=== PATIENT | male | born 1990 | race Caucasian/White ===

== ENCOUNTER 2018-04-25 20:41 | Inpatient (IN) | payer OTHER ==
[~2018-04-25] VITALS: Ht 188 cm; Wt 86.2 kg
[~2018-04-25 20:41] MED LIST: MEDROL DOSEPAK1 PAC PO; NAPROXEN500 MG PO; PREDNISONE10 M2 PO; REMICADE I100 MG/10; TRAMADOL50 MG PO; [UNRECOGNIZED DRUG - OTHER]
[2018-04-25 22:24] LABS: ABSOLUTE BASOPHIL COUNT 0 /CUMM (0.0-0.2); ABSOLUTE EOSINOPHIL COUNT 0.3 /CUMM (0.0-0.7); ABSOLUTE LYMPH COUNT 1.5 /CUMM (1.2-3.4); BASOPHIL % 0.4 % (0.0-2.0); EOSINOPHIL % 3.3 % (0-5); GRANULOCYTE % 68.1 % (42.2-75.2); HEMATOCRIT 36.6 % (42-52); MEAN CORPUSCULAR HGB 30.2 PG (27.0-31.0); MEAN CORPUSCULAR HGB CONC 33.8 G/DL (33.0-37.0); MEAN CORPUSCULAR VOLUME 89.2 FL (80.0-94.0); MEAN PLATELET VOLUME 8.1 FL (7.4-10.4); PLATELET COUNT 406 /CUMM (130-400); RBC DISTRIBUTION WIDTH 12.7 % (11.5-14.5); RED BLOOD CELL CT 4.11 /CUMM (4.70-6.10); WHITE BLOOD CELL COUNT 8.9 /CUMM (4.8-10.8)
--- NOTE | 2018-04-25 22:36 | ED GI/GU/ABDOMINAL COMPLAINT ---
History of Present Illness General Chief Complaint: Abdominal Pain/Flank Pain Stated Complaint: CHRON'S FLARE UP, UNABLE TO SEE GI Source: patient, old records Exam Limitations: no limitations Vital Signs & Intake/Output Vital Signs & Intake/Output Vital Signs Date Time Temp Pulse Resp B/P B/P Pulse O2 O2 Flow FiO2 Mean Ox Delivery Rate 04/25 2347 98.5 86 18 129/81 98 Room Air 04/25 2303 Room Air 04/25 2121 98.9 100 20 128/89 98 ED Intake and Output 04/26 0000 04/25 1200 Intake Total 1000 Output Total Balance 1000 Intake, IV 1000 Allergies Coded Allergies: No Known Allergies (04/07/18) Reconcile Medications Infliximab (Remicade Injection) (Unknown Strength) VIAL (Unknown Dose) CROHNS (Reported) Methylprednisolone. (Medrol) 4 MG TAB.DS.PK 10 MG PO DAILY INFLAMMATION TAPER DIRECTED Naproxen 500 MG TABLET 1 TAB PO BID PRN PAIN Prednisone 10 MG TABLET 1 TAB PO DAILY CROHN'S TAKE 3 TABS FOR 3 DAYS THEN TAKE 2 TABS FOR 3 DAYS THEN TAKE 1 TAB FOR 3 DAYS Tetanus-Diphtheria Toxoids(Td (Tetanus and Diphtheria Toxoids, Adsorbd Inj) 0.5 ML SYR STEPPED ON NAIL (Reported) TRAMADOL HCL (Tramadol) 50 MG TABLET 1 TAB PO Q6 PRN BREAKTHROUGH PAIN Triage Note: PER PT SEEN 3 WEEKS AGO FOR CHRONS FLARE GIVEN MEDS AND FLUIDS BUT CANT GET STATE INSURANCE NOW PAIN BACK BM Q 4 DAYS AND WEAK Triage Nurses Notes Reviewed? yes HPI: Patient presents with abdominal pain and bloating. Patient has Crohn's disease however has been off Remicade since November secondary to insurance reasons. Patient was seen here in the emergency Department 3 weeks ago and was put on a 10 day course of prednisone. Patient states he was feeling better and then approximately 4 days ago the pain came back. The pain is in the right lower quadrant is sharp and stabbing but also cramping in nature. There are no aggravating or mitigating factors. He states that he feels very bloated and the bloating sensation gets worse when he eats. Patient does have anorexia. He states that he doesn't really feel nauseous he just kind of feels like he is very full and things are back now. The pain at 10 out of 10. There is no radiation of the pain. Past History Travel History Traveled to [place] past 21 day No Medical History Any Pertinent Medical History? see below for history Neurological: NONE EENT: NONE Cardiovascular: NONE Respiratory: NONE Gastrointestinal: Crohn's disease Hepatic: NONE Renal: NONE Musculoskeletal: NONE Psychiatric: NONE Endocrine: NONE Blood Disorders: NONE Cancer(s): NONE Surgical History Surgical History: non-contributory Psychosocial History Who do you live with Family Services at Home None What is your primary language French Tobacco Use: Current Daily Use Daily Tobacco Use Amount/Type: => 5 Cigarettes daily ETOH Use: denies use Illicit Drug Use: denies illicit drug use Family History Hx Contributory? No Review of Systems Review of Systems Constitutional: Reports: no symptoms. EENTM: Reports: no symptoms. Respiratory: Reports: no symptoms. Cardiovascular: Reports: no symptoms. GI: Reports: see HPI, abdominal pain, bloating. Genitourinary: Reports: no symptoms. Musculoskeletal: Reports: no symptoms. Skin: Reports: no symptoms. Neurological/Psychological: Reports: no symptoms. Hematologic/Endocrine: Reports: no symptoms. Immunologic/Allergic: Reports: no symptoms. All Other Systems: Reviewed and Negative Physical Exam Physical Exam General Appearance: well developed/nourished, alert, awake, anxious, moderate distress Head: atraumatic, normal appearance Eyes: Bilateral: PERRL, EOMI. Ears, Nose, Throat, Mouth: hearing grossly normal, moist mucous membrane Neck: normal inspection, supple, full range of motion Respiratory: normal breath sounds, chest non-tender, no respiratory distress, lungs clear Cardiovascular: regular rate/rhythm, normal peripheral pulses Gastrointestinal: normal bowel sounds, soft, guarding, tenderness Back: normal inspection, normal range of motion Extremities: normal range of motion Neurologic/Psych: no motor/sensory deficits, awake, alert, oriented x 3, normal mood/affect Core Measures ACS in differential dx? No Sepsis Present: No Sepsis Focused Exam Completed? No Progress Differential Diagnosis: inflamm bowel dis, SBO Plan of Care: Orders Procedure Date/time Status LIPASE 04/25 2146 Complete LACTIC ACID 04/25 2146 Complete COMPREHENSIVE METABOLIC PANEL 04/25 2146 Complete CBC WITHOUT DIFFERENTIAL 04/25 2146 Complete AMYLASE 04/25 2146 Complete Current Medications Sig/Robert Start time Last Medication Dose Stop Time Status Admin Hydromorphone HCl 2 MG ONCE ONE 04/25 2345 UNVr 04/25 (Dilaudid) 04/25 2346 2348 Hyoscyamine 0.125 MG ONCE ONE 04/25 2345 UNVr 04/25 (Levsin) 04/256 2349 Laboratory Tests 04/25/18 2214: Anion Gap 12, Estimated GFR > 60, BUN/Creatinine Ratio 13.3, Glucose 91, Lactic Acid 0.6 L, Calcium 9.4, Total Bilirubin 0.5, AST 25, ALT 28, Alkaline Phosphatase 61, Total Protein 7.2, Albumin 4.2, Globulin 3.0, Albumin/Globulin Ratio 1.4, Amylase 42, Lipase 56, CBC w Diff NO MAN DIFF REQ, RBC 4.11 L, MCV 89.2, MCH 30.2, MCHC 33.8, RDW 12.7, MPV 8.1, Gran % 68.1, Lymphocytes % 17.0 L , Monocytes % 11.2 H, Eosinophils % 3.3, Basophils % 0.4, Absolute Granulocytes 6.0, Absolute Lymphocytes 1.5, Absolute Monocytes 1.0 H, Absolute Eosinophils 0.3, Absolute Basophils 0 Diagnostic Imaging: Viewed by Me: CT Scan. Discussed w/RAD: CT Scan. Radiology Impression: PATIENT: ROSIE FRANKLIN PRESENT AGE: 28 PATIENT ACCOUNT NO: [id number] : 90 LOCATION: [facility] ORDERING PHYSICIAN: Dominguez Foley MD SERVICE DATE: 04/25/18 EXAM TYPE: CAT - CT ABD & PELVIS W IV CONTRAST EXAMINATION: CT ABDOMEN AND PELVIS WITH CONTRAST CLINICAL INFORMATION: Abdominal pain and bloating COMPARISON: 04/07/2010 TECHNIQUE: Multidetector volumetric imaging was performed of the abdomen and pelvis following IV administration of 95 mL of Optiray 320 intravenous contrast. Sagittal and coronal reformatted images were obtained on the technologist's workstation. DLP: 323 mGy-cm FINDINGS: LUNG BASES: The visualized lung bases are unremarkable. LIVER, GALLBLADDER, AND BILIARY TREE: The liver is normal in size, shape, and attenuation. No focal hepatic lesion or biliary ductal dilatation is present. The gallbladder is unremarkable with no evidence of radiopaque gallstones, gallbladder wall thickening, or obvious pericholecystic inflammatory changes. PANCREAS: Unremarkable. SPLEEN: Unremarkable. ADRENAL GLANDS: Unremarkable. KIDNEYS AND URETERS: The kidneys are normal in size, shape, and attenuation. No hydronephrosis, hydroureter, or calculi seen. No perinephric stranding. BLADDER: Unremarkable. GASTROINTESTINAL TRACT: There is a long segment of circumferential wall thickening of the distal ileum, approximately 25 cm in length, with mild stranding of the adjacent fat and a small amount of free fluid in the pelvis. There is no abscess. No obstruction. No significant change. ABDOMINAL WALL: No significant hernia is appreciated. LYMPH NODES: Normal. VASCULAR: Unremarkable. PELVIC VISCERA: Unremarkable. OSSEOUS STRUCTURES: Unremarkable. IMPRESSION: Circumferential wall thickening of the distal ileum with surrounding inflammatory stranding and a small amount free pelvic fluid. Overall, this does not appear significantly changed since 04/07/2018. No abscess. No definite obstruction. DICTATED BY: Joey Ibarra MD DATE/TIME DICTATED:04/25/182331 CLERICAL CAR CHECKER:SPENSER DATE/TIME TRANSCRIBED:2331 CONFIDENTIAL, DO NOT COPY WITHOUT APPROPRIATE AUTHORIZATION. < Electronically signed in Other Vendor System> SIGNED BY: Joey Ibarra MD 04/25/18 8127 Initial ED EKG: none Comments: Discussed with Dr. Hooper, hold off on IV steroids until he is seen in the morning. Departure Departure Disposition: STILL A PATIENT Condition: Stable Clinical Impression Primary Impression: Exacerbation of Crohn's disease Referrals: Patient Has No Primary Care Dr (PCP/Family) Departure Forms: Customer Survey General Discharge Information Admission Note Spoke With: Kristine Skinner MD Documentation of Exam: Documentation of any treatments & extenuating circumstances including Concerns Regarding Discharge (functional status, medication knowledge or non-compliance, living conditions, etc.) that warrant an admission rather than observation: [IV fluids, pain control, GI consultation, IV steroids or biologic's, social work consultation to try and reinstate his insurance]
--- NOTE | 2018-04-25 23:41 | CT SCAN REPORT ---
EXAMINATION: CT ABDOMEN AND PELVIS WITH CONTRAST CLINICAL INFORMATION: Abdominal pain and bloating COMPARISON: 04/07/2010 TECHNIQUE: Multidetector volumetric imaging was performed of the abdomen and pelvis following IV administration of 95 mL of Optiray 320 intravenous contrast. Sagittal and coronal reformatted images were obtained on the technologist's workstation. DLP: 323 mGy-cm FINDINGS: LUNG BASES: The visualized lung bases are unremarkable. LIVER, GALLBLADDER, AND BILIARY TREE: The liver is normal in size, shape, and attenuation. No focal hepatic lesion or biliary ductal dilatation is present. The gallbladder is unremarkable with no evidence of radiopaque gallstones, gallbladder wall thickening, or obvious pericholecystic inflammatory changes. PANCREAS: Unremarkable. SPLEEN: Unremarkable. ADRENAL GLANDS: Unremarkable. KIDNEYS AND URETERS: The kidneys are normal in size, shape, and attenuation. No hydronephrosis, hydroureter, or calculi seen. No perinephric stranding. BLADDER: Unremarkable. GASTROINTESTINAL TRACT: There is a long segment of circumferential wall thickening of the distal ileum, approximately 25 cm in length, with mild stranding of the adjacent fat and a small amount of free fluid in the pelvis. There is no abscess. No obstruction. No significant change. ABDOMINAL WALL: No significant hernia is appreciated. LYMPH NODES: Normal. VASCULAR: Unremarkable. PELVIC VISCERA: Unremarkable. OSSEOUS STRUCTURES: Unremarkable. IMPRESSION: Circumferential wall thickening of the distal ileum with surrounding inflammatory stranding and a small amount free pelvic fluid. Overall, this does not appear significantly changed since 04/07/2018. No abscess. No definite obstruction.
--- NOTE | 2018-04-26 01:15 | History & Physical ---
Fidel Ramirez 04/26/18 0114: General Information and HPI MD Statement: I have seen and personally examined ROSIE FRANKLIN and documented this H&P. The patient is a 28 year old M who presented with a patient stated chief complaint of []. Source of Information: patient Exam Limitations: no limitations History of Present Illness: Patient is a 28-year-old male past medical history of Crohn's disease diagnosed about 7 years ago. After being unresponsive to Humira self injections patient was started on Remicade monotherapy Q8 weeks, which he claims put him into remission other than the occasional bout of flare like symptoms. His last dose of Remicade was in November 2017, as he could not continue due to insurance reasons. This caused him to miss his January dose. About 4 weeks ago, his Chron's symptoms reappeared with 10/10 pain in start in the lower right quadrant and extending throughout his body abdominal region and groin. At this time he also began experiencing bloody and less formed stools with bowel movements ranging from once in every four to seven days. He came to [place] [facility] 3 weeks ago and was given a 10 day taper of prednisone along with an abdominal CT scan that found some bowel wall thickening in the terminal illeum. The prednisone taper helped for about a week but patient claims his symptoms returned shortly thereafter and this morning (April 25) patient had another bowel movement with bright red blood that filled the entire toilet bowel. Patient also endorses some orthostatic symptoms, such as feeling dizzy and light headed when getting up fast. At times when pain is too much to handle, patient has tried methadone, oxycodon, and marajuana which have all helped. He says that he also uses 2-3 ibuprofen when feeling pain. Patient follows with Dr. Maher at [place] but had to miss his appointment last Wednesday do to insurance reasons. His last colonoscopy was 7 years ago when he was initially diagnosed. He currently denies any fever. He endorses since the start of his most recent flare occasional chills, nausea, vomitting, diaphoersis, "hot flashes", abdminal pain, joint pain , back pain and significant fatigue. Allergies/Medications Allergies: Coded Allergies: No Known Allergies (04/07/18) Compliance With Home Meds: POOR (Missed last dose of Remicade) Past History Travel History Traveled to [place] past 21 day No Medical History Neurological: NONE EENT: NONE Cardiovascular: NONE Respiratory: NONE Gastrointestinal: Crohn's disease Hepatic: NONE Renal: NONE Musculoskeletal: NONE Psychiatric: NONE Endocrine: NONE Blood Disorders: NONE Cancer(s): NONE Surgical History Surgical History: non-contributory Past Family/Social History Psychosocial History Services at Home: None Smoking Status: Current Some Day Smoker (2-3 ciagerettes daily x 10 yrs) ETOH Use: denies use Illicit Drug Use: denies illicit drug use Review of Systems Review of Systems Constitutional: Denies: fever. EENTM: Reports: no symptoms. Cardiovascular: Reports: orthopena, palpitations. Denies: syncope. Respiratory: Reports: no symptoms. GI: Reports: abdominal pain, constipation, melena, nausea, bloody stool. Genitourinary: Reports: no symptoms. Musculoskeletal: Reports: back pain, joint pain. Skin: Reports: no symptoms. Neurological/Psychological: Reports: anxiety. Hematologic/Endocrine: Reports: no symptoms. Immunologic/Allergic: Reports: no symptoms. All Other Systems: Reviewed and Negative Exam & Diagnostic Data Last 24 Hrs of Vital Signs/I&O Vital Signs Date Time Temp Pulse Resp B/P B/P Pulse O2 O2 Flow FiO2 Mean Ox Delivery Rate 04/26 0230 98.3 80 18 110/60 97 Room Air / 0101 98.0 80 18 128/79 98 Room Air 07/ 2347 98.5 86 18 129/81 98 Room Air / 2303 Room Air / 2121 98.9 100 20 128/89 98 Intake & Output 04/26 0800 07/ 0000 04/25 1600 Intake Total 1000 Output Total Balance 1000 Intake, IV 1000 Patient 190 lb Weight Weight Bed scale Measurement Method Physical Exam General Appearance Alert, Oriented X3, Cooperative, No Acute Distress Skin No Rashes HEENT Atraumatic, PERRLA, EOMI Neck Supple Cardiovascular Regular Rate, Normal S1, Normal S2 Lungs Clear to Auscultation, Normal Air Movement Abdomen Normal Bowel Sounds, Soft, No Masses, Tenderness in RLQ Extremities No Clubbing Assessment/Plan Assessment: Patient is a 28-year-old male past medical history of Crohn's disease diagnosed about 7 years ago on remicade Q8 weeks. Recent inability to receive last infusion in November due to social reasons has most likely been the cause of his most recent flare for the last 4 weeks. ER spoke with Dr. Vazquez who recommended not starting antibiotics or steroids until being seen tomorrow. Problem list: Chron's Disease Flare: 1. Admit to general medicine 2. IV fluids 4. Pain pathway 5. GI Consult 6. DVT ppx (ALPS) As Ranked By This Provider Problem List: 1. Crohn's disease 2. Acute low back pain 3. Exacerbation of Crohn's disease Core Measures/Misc (07/11) Acute Coronary Syndrome ACS Diagnosis: No Congestive Heart Failure Congestive Heart Failure Diagnosis No Cerebrovascular Accident CVA/TIA Diagnosis: No VTE (View Protocol) VTE Risk Factors Smoker Sepsis (View protocol) Sepsis Present: No If YES complete Sepsis Event Note If YES complete Sepsis Event Note Kristine Skinner MD 04/26/18 0155: Core Measures/Misc (07/11) Sepsis (View protocol) If YES complete Sepsis Event Note If YES complete Sepsis Event Note Attending MD Review Statement Attending Statement Attending MD Statement: examined this patient, discuss w/resident/PA/CUSTOMER SERVICE CASHIER, agreed w/resident/PA/CUSTOMER SERVICE CASHIER, reviewed EMR data (avail) Attending Assessment/Plan: 28M PMH Crohn's disease presenting with several days of diffuse abdominal pain, R>L, with nausea, decreased appetite. Had been on Remicaide which controlled his symptoms but stopped 3 months ago due to lack of health insurance. Had an exacerbation 3 weeks ago and treated successfully with Prednisone, symptoms restarted since stopping it and have worsened since. Unable to sleep or find a comfortable position due to pain, and noticed bloody stool today. Hemodynamically stable, labs reviewed. ER spoke with Dr. Vazquez who recommended not starting antibiotics or steroids until being seen tomorrow. 1. Crohn's flare Plan - Admit to general medicine - IV hydration - Dilaudid IV PRN for pain - GI consult - ALPS for DVT PPx Yojana Bro MD 04/26/18 0603: General Information and HPI Allergies/Medications Home Med list No Known Home Medications Core Measures/Misc (07/11) VTE (View Protocol) No Mechanical VTE Prophylaxis d/t Medical Contraindication No VTE Pharm Prophylaxis d/t NA PharmProphylax ordered Sepsis (View protocol) If YES complete Sepsis Event Note If YES complete Sepsis Event Note Resident Review Statement Resident Statement: examined this patient, discussed with pharmacy grad intern, agreed with pharmacy grad intern Other Findings: Mr. Franklin is a 28-year-old gentleman with past medical history significant for Crohn's disease(diagnosed 7 years ago) presents with abdominal pain is really going on for 3-4 weeks. Patient was on rituximab for Crohn's disease but has not been able to it because of insurance issues. His last Remicaide infusion was in November. He has been doing good until a month ago when he started having abdominal pain. He was seen in [place] [facility] 3 weeks ago, for abdominal pain and was treated with prednisone for Crohn's flare. The prednisone helped somewhat with the abdominal pain but the pain did not go away completely. He started having severe abdominal pain again 4 days ago. Pain is 10 out of 10, constant, initially was mostly in bilateral lower quadrants but now he can feel it all over the abdomen and even the groins. He has been taking ibuprofen 600 mg at night for the abdominal pain. He was referred to pain management but hasn't been able to follow-up because of insurance issues. Also reports constipation and has approx one bowel movement every week. Also noticed fresh blood in his stools, she was initially minimal but has been aggressively increasing in quantity. Also endorses joint pain/back pain, night sweats and diaphoresis. Denies any nauseous or vomiting but complains of bloating/ feeling of fullness. He is a current smoker and smokes 2 cigarettes per day(was cut down from 1 pack per day), drinks alcohol occasionally and has also smoked marijuana and cocaine in the past. Vitals on admission were temperature of 98.9, heart rate 100, respiratory rate 20, blood pressure 128/59 and O2 sats 98% on room air. He had a white count of 8.9, H&H 12.4/36.6, platelet count 46, BEP unremarkable, lactic acid 0.6 and C-reactive protein of 6.7. CT abdomen and pelvis without contrast showed Circumferential wall thickening of the distal ileum with surrounding inflammatory stranding and a small amount free pelvic fluid, unchanged from previous imaging. Problem list; 1. Crohn's Flare - Admit Patient to Gen Med Floor - Dr. Wallis was called from the ER, who recommending following the patient off steroids or antibiotics and he will see the patient in the morning. - Pain management with IV Dilaudid. - Stool guaiac - Start the patient on clear liquid diet and advance as tolerated. DVT prophylaxis; ALPS Patient is full code
--- NOTE | 2018-04-26 01:59 | Admission Certification ---
Admission Certification Certification Statement - As attending physician, I certify that at the time of - admission, based on clinical presentation, severity of - symptoms, need for further diagnostic testing and - therapeutic interventions, and risk of adverse outcomes - without in-hospital treatment, in my clinical assessment, - this patient requires an acute hospital stay for a minimum - of two nights or longer. I have also considered psychsocial - factors such as support system, advanced age, financial - issues, cognitive issues, and failed out-patient treatments, - past re-admission history, safety of patient, and lack of - compliance as applicable. Specific rationale supporting this admission is: Crohn's flare with bloody stool and intractable pain
[2018-04-26 02:30] VITALS: BP 110/60
[2018-04-26 06:42] VITALS: BP 147/59
[2018-04-26 09:47] LABS: ABSOLUTE BASOPHIL COUNT 0.1 /CUMM (0.0-0.2); ABSOLUTE EOSINOPHIL COUNT 0.3 /CUMM (0.0-0.7); ABSOLUTE LYMPH COUNT 1.5 /CUMM (1.2-3.4); ABSOLUTE MONOCYTE COUNT 1.5 /CUMM (0.10-0.60); BASOPHIL % 0.6 % (0.0-2.0); EOSINOPHIL % 3.1 % (0-5); MEAN CORPUSCULAR HGB 30.7 PG (27.0-31.0); MEAN CORPUSCULAR HGB CONC 34.3 G/DL (33.0-37.0); MEAN CORPUSCULAR VOLUME 89.5 FL (80.0-94.0); MEAN PLATELET VOLUME 8.6 FL (7.4-10.4); PLATELET COUNT 326 /CUMM (130-400); RBC DISTRIBUTION WIDTH 12.4 % (11.5-14.5); RED BLOOD CELL CT 3.46 /CUMM (4.70-6.10); WHITE BLOOD CELL COUNT 9.4 /CUMM (4.8-10.8)
--- NOTE | 2018-04-26 14:26 | PN- Housestaff ---
See Addendum Subjective Follow-up For: Crohns flare up Complaints: pain scale (0-10) (10/10) Subjective: Patient states he continues to experience constant 10/10 abdominal pain and bloody bowel movements. Last BM was yesterday morning. He also reports difficulty initiating his urine stream. Denies dysuria, chest pain, SOB, n/v, fever, chills. Review of Systems Constitutional: Reports: see HPI. Objective Last 24 Hrs of Vital Signs/I&O Vital Signs Date Time Temp Pulse Resp B/P B/P Pulse O2 O2 Flow FiO2 Mean Ox Delivery Rate 04/26 0642 98.3 92 20 147/59 100 Room Air 04/26 0230 98.3 80 18 110/60 97 Room Air / 0101 98.0 80 18 128/79 98 Room Air / 2347 98.5 86 18 129/81 98 Room Air 04/25 2303 Room Air 04/25 2121 98.9 100 20 128/89 98 Intake & Output 04/26 1600 04/26 0800 / 0000 Intake Total 760 1000 Output Total Balance 760 1000 Intake, IV 40 1000 Intake, Oral 720 Number 0 Bowel Movements Patient 190 lb Weight Weight Bed scale Measurement Method Physical Exam General Appearance: Alert, Oriented X3, Cooperative, Mild Distress Skin: No Rashes Skin Temp/Moisture Exam: Warm/Dry HEENT: Atraumatic, PERRLA Neck: Supple Cardiovascular: Regular Rate, Normal S1, Normal S2 Lungs: Clear to Auscultation, Normal Air Movement Abdomen: tender to palpation diffusely; non distended, active bowel sounds Extremities: No Edema, Normal Pulses Assessment/Plan Assessment: 28 year old male with PMH significant for Crohns disease diagnosed at age 21. He reports constant 10/10 abdominal pain associated with bloody bowel movement that are bright red. He was admitted overnight and is currently receiving hydration and pain control while awaiting GI consult. #Crohns -IVF for hydration -pain control -will likely start systemic steroids to decrease inflammation -awaiting GI recs DVT prophylaxis: ALPS, ambulation Problem List: 1. Crohn's disease 2. Exacerbation of Crohn's disease Pain Ratin Pain Location: abdomen Pain Goal: Pain 7 or less Pain Plan: see a/p Tomorrow's Labs & Rationales: cbc, bep
[2018-04-26 14:43] VITALS: BP 118/64
--- NOTE | 2018-04-26 17:28 | Cons- Gastroenterology ---
General Information and HPI Consulting Request Date of Consult: 04/26/18 Requested By: Van Crawford MD Reason for Consult: Crohn's disease History of Present Illness: The patient was diagnosed with Crohn's ileitis approximately 7 years ago. His initial presentation was that of pain and bloody diarrhea. He does remember having on and off abdominal pain/stomach problems throughout his life. He was at first managed with Humira and a thiopurine; this was changed to Remicade ( without immunomodulator) for lack of response. He was essentially symptom free for many years aside from minor brief flares, and occasional back pain and migratory arthropathy. He stopped Remicade (was receiving home infusions) approximate 5 months ago, because of insurance issues and a temporary move to [place], and continued to feel well until approximately 1-1/2 months ago. Since that time he has had progressively worsening abdominal pain (at first intermittent and right lower quadrant, and by now almost constant and diffuse). He is also had intermittent diarrhea, and has noted red blood per rectum over the last few weeks. He also has anorexia, early satiety, and some nausea (but no dysphagia, vomiting or regurgitation). He has night sweats, but no documented fevers. He has developed urinary frequency without painful urination or hematuria. His back pain is more severe. He went to the emergency room several weeks ago and he was given a short course of corticosteroids, and felt better temporarily. There has been no rash, swollen/warm/red joints, jaundice, pruritus, perianal/perirectal pain or discharge. He has some fatigue, but no shortness of breath, chest pain, or lightheadedness. There is no history of liver disease, uveitis/episcleritis, spondylitis, clotting disorder. Family history is negative for IBD and GI malignancy. His father had ulcers, and his brother suffers from GI symptoms but has not been diagnosed. Social history: The patient smokes several cigarettes per day, and is a social alcohol drinker. No history of drug use. 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 Allergies/Medications Allergies: Coded Allergies: No Known Allergies (04/07/18) Home Med List: No Known Home Medications Current Medications: Current Medications Sig/Robert Start time Last Medication Dose Route Stop Time Status Admin Enoxaparin Sodium 40 MG DAILY 04/26 0900 DC SC Hydrocortisone 100 MG Q8 04/26 1622 AC Sodium Succinate IV Hydromorphone HCl 2 MG Q3P PRN 04/26 0300 AC 04/26 IV 1125 Hydromorphone HCl 0 .STK-MED ONE 04/26 0059 DC .ROUTE Hydromorphone HCl 2 MG ONCE ONE 04/26 0045 DC 04/26 IV 04/26 0046 0101 Hydromorphone HCl 2 MG ONCE ONE 04/25 2345 DC 04/25 IV 04/25 2346 2348 Hydromorphone HCl 0 .STK-MED ONE 04/25 2342 DC .ROUTE Hydromorphone HCl 0 .STK-MED ONE 04/25 2246 DC .ROUTE Hydromorphone HCl 2 MG ONCE ONE 04/25 2245 DC 04/25 IV 04/25 2246 2250 Hyoscyamine 0.125 MG Q4 HRS NEEDED PRN 04/26 1245 AC 04/26 PO 1523 Hyoscyamine 0 .STK-MED ONE 04/25 2348 DC .ROUTE Hyoscyamine 0.125 MG ONCE ONE 04/25 2345 DC 04/25 PO 04/25 2346 2349 Lactated Ringer's 1,000 ML Q6H 04/26 0945 AC 04/26 IV 0958 Morphine Sulfate 15 MG Q4 HRS NEEDED PRN 04/26 0845 AC 04/26 PO 0958 Nicotine 7 MG DAILY 04/26 1307 AC TOP Ondansetron HCl 0 .STK-MED ONE 04/25 2246 DC .ROUTE Ondansetron HCl 4 MG ONCE ONE 04/25 2245 DC 04/25 IV 04/25 2246 2250 Sodium Chloride 1,000 ML BOLUS ONE 04/25 2245 DC 04/25 IV 04/25 2344 2250 Tramadol HCl 50 MG ONCE ONE 04/26 0430 DC 04/26 PO 04/26 0431 0437 Past History Travel History Traveled to [place] past 21 day No Medical History Blood Transfusion Hx: No Neurological: NONE EENT: NONE Cardiovascular: NONE Respiratory: NONE Gastrointestinal: Crohn's disease Hepatic: NONE Renal: NONE Musculoskeletal: NONE Psychiatric: NONE Endocrine: NONE Blood Disorders: NONE Cancer(s): NONE NURSERY ATTENDANT/Reproductive: NONE Surgical History Surgical History: non-contributory Psychosocial History Where Do You Live? Home Services at Home: None Smoking Status: Current Some Day Smoker (2-3 ciagerettes daily x 10 yrs) ETOH Use: denies use Illicit Drug Use: denies illicit drug use Exam & Diagnostic Data Vital Signs and I&O Vital Signs Date Time Temp Pulse Resp B/P B/P Pulse O2 O2 Flow FiO2 Mean Ox Delivery Rate 04/26 1443 98.4 81 20 118/64 98 Room Air 04/26 0642 98.3 92 20 147/59 100 Room Air 04/26 0230 98.3 80 18 110/60 97 Room Air 04/26 0101 98.0 80 18 128/79 98 Room Air 04/25 2347 98.5 86 18 129/81 98 Room Air 04/25 2303 Room Air 04/25 2121 98.9 100 20 128/89 98 Intake & Output 04/26 1600 04/26 0400 04/25 1600 04/25 0400 04/24 1600 04/24 0400 Intake Total 1660 1000 Output Total Balance 1660 1000 Intake, IV 940 1000 Intake, Oral 720 Number 0 Bowel Movements Patient 190 lb Weight Weight Bed scale Measurement Method Physical Exam: Well-developed, well-nourished, in no apparent distress. Alert and oriented with normal cognition. Skin normal without rash, lesion, stigmata of chronic liver disease, jaundice, mottling, petechiae, purpura. No adenopathy. Sclera anicteric. No oropharyngeal lesions. Neck supple without thyromegaly or mass. Heart regular rhythm. Lungs clear. Abdomen soft, nondistended, normal bowel sounds; fullness and tenderness in the right lower quadrant, in no apparent organomegaly, hernia, or mass. Extremities without clubbing, cyanosis, edema, cords; normal distal pulses. Results Pertinent Lab Results: Laboratory Tests 04/26 04/26 0841 0647 Chemistry Sodium (137 - 145 mmol/L) 135 L Potassium (3.5 - 5.1 mmol/L) 4.0 Chloride (98 - 107 mmol/L) 96 L Carbon Dioxide (22 - 30 mmol/L) 26 Anion Gap (5 - 16) 13 BUN (9 - 20 mg/dL) 10 Creatinine (0.7 - 1.2 mg/dL) 0.7 Estimated GFR (>60 ml/min) > 60 BUN/Creatinine Ratio (7 - 25 %) 14.3 Hematology CBC w Diff NO MAN DIFF REQ WBC (4.8 - 10.8 /CUMM) 9.4 RBC (4.70 - 6.10 /CUMM) 3.46 L Hgb (14.0 - 18.0 G/DL) 10.6 L Hct (42 - 52 %) 31.0 L MCV (80.0 - 94.0 FL) 89.5 MCH (27.0 - 31.0 PG) 30.7 MCHC (33.0 - 37.0 G/DL) 34.3 RDW (11.5 - 14.5 %) 12.4 Plt Count (130 - 400 /CUMM) 326 MPV (7.4 - 10.4 FL) 8.6 Gran % (42.2 - 75.2 %) 64.0 Lymphocytes % (20.5 - 51.1 %) 16.4 L Monocytes % (1.7 - 9.3 %) 15.9 H Eosinophils % (0 - 5 %) 3.1 Basophils % (0.0 - 2.0 %) 0.6 Absolute Granulocytes (1.4 - 6.5 /CUMM) 6.0 Absolute Lymphocytes (1.2 - 3.4 /CUMM) 1.5 Absolute Monocytes (0.10 - 0.60 /CUMM) 1.5 H Absolute Eosinophils (0.0 - 0.7 /CUMM) 0.3 Absolute Basophils (0.0 - 0.2 /CUMM) 0.1 Urines Urine Color (YEL,AMB,STR) YEL Urine Clarity (CLEAR) CLEAR Urine pH (5.0 - 8.0) 6.5 Ur Specific [place] (1.001 - 1.035) 1.010 Urine Protein (NEG,<30 MG/DL) NEG Urine Ketones (NEG) NEG Urine Nitrite (NEG) NEG Urine Bilirubin (NEG) NEG Urine Urobilinogen (0.1 - 1.0 EU/dl) 0.2 Ur Leukocyte Esterase (NEG) NEG Ur Microscopic SEDIMENT EXAMINED Urine RBC (0 - 5 /HPF) 3-5 Urine WBC (0 - 2 /HPF) RARE Urine Hemoglobin (NEG) SMALL H Urine Glucose (N MG/DL) NEG 04/26 04/25 0046 2214 Chemistry Sodium (137 - 145 mmol/L) 141 Potassium (3.5 - 5.1 mmol/L) 4.6 Chloride (98 - 107 mmol/L) 98 Carbon Dioxide (22 - 30 mmol/L) 32 H Anion Gap (5 - 16) 12 BUN (9 - 20 mg/dL) 12 Creatinine (0.7 - 1.2 mg/dL) 0.9 Estimated GFR (>60 ml/min) > 60 BUN/Creatinine Ratio (7 - 25 %) 13.3 Glucose (65 - 99 mg/dL) 91 Lactic Acid (0.7 - 2.1 mmol/L) Cancelled 0.6 L Calcium (8.4 - 10.2 mg/dL) 9.4 Total Bilirubin (0.2 - 1.3 mg/dL) 0.5 AST (17 - 59 U/L) 25 ALT (21 - 72 U/L) 28 Alkaline Phosphatase (< 127 U/L) 61 C-Reactive Prot, Quant (<1.0 mg/dL) 6.7 H Total Protein (6.3 - 8.2 g/dL) 7.2 Albumin (3.5 - 5.0 g/dL) 4.2 Globulin (1.9 - 4.2 gm/dL) 3.0 Albumin/Globulin Ratio (1.1 - 2.2 %) 1.4 Amylase (30 - 110 U/L) 42 Lipase (23 - 300 U/L) 56 Hematology CBC w Diff NO MAN DIFF REQ WBC (4.8 - 10.8 /CUMM) 8.9 RBC (4.70 - 6.10 /CUMM) 4.11 L Hgb (14.0 - 18.0 G/DL) 12.4 L Hct (42 - 52 %) 36.6 L MCV (80.0 - 94.0 FL) 89.2 MCH (27.0 - 31.0 PG) 30.2 MCHC (33.0 - 37.0 G/DL) 33.8 RDW (11.5 - 14.5 %) 12.7 Plt Count (130 - 400 /CUMM) 406 H MPV (7.4 - 10.4 FL) 8.1 Gran % (42.2 - 75.2 %) 68.1 Lymphocytes % (20.5 - 51.1 %) 17.0 L Monocytes % (1.7 - 9.3 %) 11.2 H Eosinophils % (0 - 5 %) 3.3 Basophils % (0.0 - 2.0 %) 0.4 Absolute Granulocytes (1.4 - 6.5 /CUMM) 6.0 Absolute Lymphocytes (1.2 - 3.4 /CUMM) 1.5 Absolute Monocytes (0.10 - 0.60 /CUMM) 1.0 H Absolute Eosinophils (0.0 - 0.7 /CUMM) 0.3 Absolute Basophils (0.0 - 0.2 /CUMM) 0 Imaging/Other Studies: CT scan of the abdomen and pelvis with IV and oral contrast: IMPRESSION: Circumferential wall thickening of the distal ileum with surrounding inflammatory stranding and a small amount free pelvic fluid. Overall, this does not appear significantly changed since 04/07/2018. No abscess. No definite obstruction. Assessment/Plan Assessment/Recommendations: Crohn's ileitis with clinical recurrence off of therapy. The patient presents with long segment ileal inflammation without evident obstruction or penetrating disease. There is minor mesenteric involvement without phlegmonous change. His symptoms are that of progressively worsening pain, and blood per rectum with anemia. He has some degree of associated arthropathy, but no other evident extraintestinal manifestations. His urinary frequency and microscopic hematuria may be secondary to bladder involvement. There was a brief partial response to a short course of corticosteroids. Recommendations * Please check hepatitis B surface antigen, QuantiFERON Gold, iron, TIBC, ferritin. * Clear liquid diet * Hydrocortisone 100 mg IV every 8 hours * At this time, no indication for antibiotics * Monitor CBC, BMP, CRP * Parenteral analgesics and oral antispasmodics (such as hyoscyamine or dicyclomine) as necessary * The patient is at risk of thromboembolic disease given his Crohn's flare; he should continue to ambulate and exercise. At this time would not begin low molecular weight heparin given the (subjective) degree of rectal bleeding. * Pending reinstitution of insurance (with the involvement of continuing care and social work), will likely be restarted on Remicade. Will defer to Dr. Maher , his outpatient berry picker. This will be while on corticosteroids, and after checking antibodies to infliximab. Consult Acknowledgment - Thank you for your consult request.
[2018-04-26 22:29] VITALS: BP 110/62
[2018-04-27 06:34] VITALS: BP 110/78
[2018-04-27 07:38] LABS: ABSOLUTE BASOPHIL COUNT 0 /CUMM (0.0-0.2); ABSOLUTE EOSINOPHIL COUNT 0.1 /CUMM (0.0-0.7); ABSOLUTE GRANULOCYTE CT 7.9 /CUMM (1.4-6.5); ABSOLUTE MONOCYTE COUNT 0.6 /CUMM (0.10-0.60); BASOPHIL % 0.2 % (0.0-2.0); EOSINOPHIL % 0.7 % (0-5); GRANULOCYTE % 82.6 % (42.2-75.2); HEMATOCRIT 29.4 % (42-52); MEAN CORPUSCULAR HGB 30.9 PG (27.0-31.0); MEAN CORPUSCULAR HGB CONC 34.4 G/DL (33.0-37.0); MEAN CORPUSCULAR VOLUME 89.7 FL (80.0-94.0); MEAN PLATELET VOLUME 8.4 FL (7.4-10.4); PLATELET COUNT 326 /CUMM (130-400); RBC DISTRIBUTION WIDTH 12.5 % (11.5-14.5); RED BLOOD CELL CT 3.28 /CUMM (4.70-6.10); WHITE BLOOD CELL COUNT 9.5 /CUMM (4.8-10.8)
--- NOTE | 2018-04-27 08:33 | PN- Housestaff ---
See Addendum Subjective Follow-up For: Crohns exacerbation Complaints: pain scale (0-10) (8/10) Subjective: Patient reports insomnia overnight despite treatment with Ambien and Razerem. He states the oral pain medication is not really effective and IV dilauded only lasted 20-30 minutes. He states his pain in not well controlled and at a constant 8/10. He is currently using heating clothes wrapped by an abdominal binder which he states gives him some relief. He states his back pain is much improved overnight. He continues to feel some discomfort with urination, but feels that is improving as well. Denies fever, chills, vomiting, diarrhea. Review of Systems Constitutional: Reports: see HPI. Objective Last 24 Hrs of Vital Signs/I&O Vital Signs Date Time Temp Pulse Resp B/P B/P Pulse O2 O2 Flow FiO2 Mean Ox Delivery Rate 04/27 0634 97.8 54 18 110/78 98 Room Air 04/26 2229 98.3 99 18 110/62 99 Room Air 04/26 1443 98.4 81 20 118/64 98 Room Air Intake & Output 04/27 1600 /04 0800 04/27 0000 Intake Total 2000 1200 Output Total Balance 2000 1200 Intake, IV 1200 1200 Intake, Oral 800 Number 0 Bowel Movements Physical Exam General Appearance: Alert, Oriented X3, Cooperative, Mild Distress, Patient reports 8/10 consant abdominal pain but is sitting comfortably in bed conversing with ease. Skin: No Rashes, No Breakdown Skin Temp/Moisture Exam: Warm/Dry HEENT: Atraumatic, PERRLA Neck: Supple Cardiovascular: Regular Rate, Normal S1, Normal S2, No Murmurs Lungs: Clear to Auscultation, Normal Air Movement Abdomen: Normal Bowel Sounds, Soft, slightly tender to palpation RLQ> than other areas Extremities: No Edema, Normal Pulses Assessment/Plan Assessment: 42 year old male with Crohn Disease diagnosed 7 years ago admitted with crohn flareup. He was started on hydrocortisone 100mg q8hr per GI recs on 04/26. His pain is being managed with PO opioid and not completely controlled at this time. We will continue to monitor his pain and treat accordingly however the hope is he will respond well to the steroid treatment and thus require less opioid supplementation. #Crohns flareup -IV steroids -pain control with PO op -GI recs: monitor cbc, bep, CRP, oral antispasmodics PRN, hold lovenox given subjective rectal bleeding, remain off abx as not indicated -Will follow up outpatient with primary GI: Dr. Maher #Social issues -Will work to get patient state insurance; financial team will assist with application DVT prophylaxis: ambulation/ALPS Problem List: 1. Crohn's disease Pain Ratin Pain Location: abdomen Pain Goal: Pain 7 or less Pain Plan: see a/p Tomorrow's Labs & Rationales: cbc, bep, crp
--- NOTE | 2018-04-27 11:49 | PN- Gastroenterology ---
Assessment/Plan GI Assessment/Recommendations: Assessment/Recommendations: Crohn's ileitis with clinical recurrence off of therapy. The patient presents with long segment ileal inflammation without evident obstruction or penetrating disease. There is minor mesenteric involvement without phlegmonous change. His symptoms are that of progressively worsening pain, and blood per rectum with anemia. He has some degree of associated arthropathy, but no other evident extraintestinal manifestations. His urinary frequency and microscopic hematuria may be secondary to bladder involvement. There was a brief partial response to a short course of corticosteroids. The patient was started on corticosteroids last night, and there was transient improvement in pain and bladder pressure, but they have recurred. His back pain has improved. Anorexia has improved. Recommendations * Please check QuantiFERON Gold. * Clear liquid diet. Add polymeric supplements (3-4 times a day) * Continue hydrocortisone 100 mg IV every 8 hours * At this time, no indication for antibiotics * Monitor CBC, BMP, CRP * Parenteral analgesics and oral antispasmodics (such as hyoscyamine or dicyclomine) as necessary. Would consider IV acetaminophen with breakthrough narcotic. If this is not feasible, would certainly modify dose of parenteral narcotic as he is having significant breakthrough pain. * Consider benzodiazepine for sleep. * Begin low molecular weight heparin to prevent thrombosis. * Pending reinstitution of insurance, will likely be restarted on Remicade. Will defer to Dr. Maher, his outpatient technical information specialist. This will be while on corticosteroids, and after checking antibodies to infliximab. Subjective Subjective: Slight improvement in pain, transiently. No bowel movements or blood per rectum. No nausea or vomiting. No fever. Objective Vital Signs and I&Os Vital Signs Date Time Temp Pulse Resp B/P B/P Pulse O2 O2 Flow FiO2 Mean Ox Delivery Rate 04/27 0634 97.8 54 18 110/78 98 Room Air 04/26 2229 98.3 99 18 110/62 99 Room Air 04/26 1443 98.4 81 20 118/64 98 Room Air Intake & Output 04/27 0400 04/26 0400 04/25 0400 Intake Total 1999 1200 1660 1000 Output Total Balance 1999 1200 1660 1000 Intake, IV 1200 7550 155 1124 Intake, Oral 800 720 Number 0 0 Bowel Movements Patient 190 lb Weight Weight Bed scale Measurement Method Physical Exam: Abdomen tender, especially right lower quadrant. Current Medications: Current Medications Sig/Robert Start time Last Medication Dose Route Stop Time Status Admin Enoxaparin Sodium 40 MG DAILY 04/26 09 DC SC Hydrocortisone 100 MG Q8H 04/26 2000 04/27 Sodium Succinate IV 0357 Hydrocortisone 100 MG Q8 04/26 1622 DC 04/26 Sodium Succinate IV 1920 Hydromorphone HCl 2 MG Q4-6 PRN PRN 04/26 2000 AC 04/27 IV 0552 Hydromorphone HCl 2 MG Q3P PRN 04/26 0300 DC 04/26 IV 1723 Hyoscyamine 0.125 MG Q4 HRS NEEDED PRN 04/26 1245 04/26 PO 1523 Lactated Ringer's 1,000 ML Q6H 04/26 0945 04/27 IV 0552 Morphine Sulfate 15 MG Q4 HRS NEEDED PRN 04/26 0845 04/27 PO 0918 Nicotine 7 MG DAILY 04/26 1307 04/27 TOP 0813 Oxycodone HCl 10 MG Q12 04/26 1945 04/27 PO 0814 Ramelteon 8 MG ONCE ONE 04/26 2215 DC 04/26 PO 04/26 2216 2223 Zolpidem Tartrate 5 MG ONCE ONE 04/27 0215 DC 04/27 PO 04/27 0216 0245 Results Pertinent Lab Results: Laboratory Tests 04/27 04/26 0658 0841 Chemistry Sodium (137 - 145 mmol/L) 135 L Potassium (3.5 - 5.1 mmol/L) 4.0 Chloride (98 - 107 mmol/L) 96 L Carbon Dioxide (22 - 30 mmol/L) 26 Anion Gap (5 - 16) 13 BUN (9 - 20 mg/dL) 10 Creatinine (0.7 - 1.2 mg/dL) 0.7 Estimated GFR (>60 ml/min) > 60 BUN/Creatinine Ratio (7 - 25 %) 14.3 Iron (49 - 181 ug/dL) 50 TIBC (261 - 462 ug/dL) 306 Ferritin (17.9 - 464 ng/mL) 164.0 Hematology CBC w Diff NO MAN DIFF REQ NO MAN DIFF REQ WBC (4.8 - 10.8 /CUMM) 9.5 9.4 RBC (4.70 - 6.10 /CUMM) 3.28 L 3.46 L Hgb (14.0 - 18.0 G/DL) 10.1 L 10.6 L Hct (42 - 52 %) 29.4 L 31.0 L MCV (80.0 - 94.0 FL) 89.7 89.5 MCH (27.0 - 31.0 PG) 30.9 30.7 MCHC (33.0 - 37.0 G/DL) 34.4 34.3 RDW (11.5 - 14.5 %) 12.5 12.4 Plt Count (130 - 400 /CUMM) 326 326 MPV (7.4 - 10.4 FL) 8.4 8.6 Gran % (42.2 - 75.2 %) 82.6 H 64.0 Lymphocytes % (20.5 - 51.1 %) 10.6 L 16.4 L Monocytes % (1.7 - 9.3 %) 5.9 15.9 H Eosinophils % (0 - 5 %) 0.7 3.1 Basophils % (0.0 - 2.0 %) 0.2 0.6 Absolute Granulocytes (1.4 - 6.5 /CUMM) 7.9 H 6.0 Absolute Lymphocytes (1.2 - 3.4 /CUMM) 1.0 L 1.5 Absolute Monocytes (0.10 - 0.60 /CUMM) 0.6 1.5 H Absolute Eosinophils (0.0 - 0.7 /CUMM) 0.1 0.3 Absolute Basophils (0.0 - 0.2 /CUMM) 0 0.1 Serology Hep Bs Antigen (NONREACTIVE) NONREACTIVE 04/26 04/26 0647 0046 Chemistry Lactic Acid Cancelled Urines Urine Color (YEL,AMB,STR) YEL Urine Clarity (CLEAR) CLEAR Urine pH (5.0 - 8.0) 6.5 Ur Specific [place] (1.001 - 1.035) 1.010 Urine Protein (NEG,<30 MG/DL) NEG Urine Ketones (NEG) NEG Urine Nitrite (NEG) NEG Urine Bilirubin (NEG) NEG Urine Urobilinogen (0.1 - 1.0 EU/dl) 0.2 Ur Leukocyte Esterase (NEG) NEG Ur Microscopic SEDIMENT EXAMINED Urine RBC (0 - 5 /HPF) 3-5 Urine WBC (0 - 2 /HPF) RARE Urine Hemoglobin (NEG) SMALL H Urine Glucose (N MG/DL) NEG 04/25 2214 Chemistry Sodium (137 - 145 mmol/L) 141 Potassium (3.5 - 5.1 mmol/L) 4.6 Chloride (98 - 107 mmol/L) 98 Carbon Dioxide (22 - 30 mmol/L) 32 H Anion Gap (5 - 16) 12 BUN (9 - 20 mg/dL) 12 Creatinine (0.7 - 1.2 mg/dL) 0.9 Estimated GFR (>60 ml/min) > 60 BUN/Creatinine Ratio (7 - 25 %) 13.3 Glucose (65 - 99 mg/dL) 91 Lactic Acid (0.7 - 2.1 mmol/L) 0.6 L Calcium (8.4 - 10.2 mg/dL) 9.4 Total Bilirubin (0.2 - 1.3 mg/dL) 0.5 AST (17 - 59 U/L) 25 ALT (21 - 72 U/L) 28 Alkaline Phosphatase (< 127 U/L) 61 C-Reactive Prot, Quant (<1.0 mg/dL) 6.7 H Total Protein (6.3 - 8.2 g/dL) 7.2 Albumin (3.5 - 5.0 g/dL) 4.2 Globulin (1.9 - 4.2 gm/dL) 3.0 Albumin/Globulin Ratio (1.1 - 2.2 %) 1.4 Amylase (30 - 110 U/L) 42 Lipase (23 - 300 U/L) 56 Hematology CBC w Diff NO MAN DIFF REQ WBC (4.8 - 10.8 /CUMM) 8.9 RBC (4.70 - 6.10 /CUMM) 4.11 L Hgb (14.0 - 18.0 G/DL) 12.4 L Hct (42 - 52 %) 36.6 L MCV (80.0 - 94.0 FL) 89.2 MCH (27.0 - 31.0 PG) 30.2 MCHC (33.0 - 37.0 G/DL) 33.8 RDW (11.5 - 14.5 %) 12.7 Plt Count (130 - 400 /CUMM) 406 H MPV (7.4 - 10.4 FL) 8.1 Gran % (42.2 - 75.2 %) 68.1 Lymphocytes % (20.5 - 51.1 %) 17.0 L Monocytes % (1.7 - 9.3 %) 11.2 H Eosinophils % (0 - 5 %) 3.3 Basophils % (0.0 - 2.0 %) 0.4 Absolute Granulocytes (1.4 - 6.5 /CUMM) 6.0 Absolute Lymphocytes (1.2 - 3.4 /CUMM) 1.5 Absolute Monocytes (0.10 - 0.60 /CUMM) 1.0 H Absolute Eosinophils (0.0 - 0.7 /CUMM) 0.3 Absolute Basophils (0.0 - 0.2 /CUMM) 0
[2018-04-27 13:40] VITALS: BP 122/78
[2018-04-27 22:42] VITALS: BP 126/70
[2018-04-28 07:04] VITALS: BP 124/68
--- NOTE | 2018-04-28 07:47 | PN- Housestaff ---
See Addendum Subjective Follow-up For: Crohns exacerbation Complaints: pain scale (0-10), 05/03 Subjective: Patient reports 7/10 abdominal pain this morning which is improved from yesterday 06/03. He reports insomnia overnight and anxiety that was partially relieved with 0.5mg Xanax. He mentioned he has had Xanax before for anxiety and usually takes 1mg dose. He states he required a couple doses of benadryl overnight for pruritis. His parents did his laundry and brought him fresh clothing and his pillow from home. He became itchy as soon as he put the clothing on and used the pillow. He states he has a h/o sensitivity to laundry detergents and attributes his sx to this. His sx resolved with benadryl and removal of the clothing/bedding brought in by his parents. Denies fever, chills , n/v/d, chest pain, SOB. No BM since admission. He states this is common for him as he usually has BMs q 5-6 days. Review of Systems Constitutional: Reports: see HPI. Objective Last 24 Hrs of Vital Signs/I&O Vital Signs Date Time Temp Pulse Resp B/P B/P Pulse O2 O2 Flow FiO2 Mean Ox Delivery Rate 04/28 0704 98.0 70 16 124/68 95 07/ 2242 97.8 100 17 126/70 100 Room Air 07/ 1340 98.1 59 20 122/78 95 Room Air Intake & Output 07/ 1600 07/05 0800 07/05 0000 Intake Total 1680 1000 Output Total 600 Balance 1680 400 Intake, IV 1200 1000 Intake, Oral 480 Output, Urine 600 Physical Exam General Appearance: Alert, Oriented X3, Cooperative, No Acute Distress Skin: No Rashes, No Breakdown Skin Temp/Moisture Exam: Warm/Dry HEENT: Atraumatic, PERRLA Neck: Supple Cardiovascular: Regular Rate, Normal S1, Normal S2 Lungs: Clear to Auscultation, Normal Air Movement Abdomen: Normal Bowel Sounds, abdomen tight upon examination in anticipation of palpation. Slightly tender to moderate palpation diffusely. Extremities: No Edema, Normal Pulses Assessment/Plan Assessment: 42 year old male with Crohn Disease diagnosed 7 years ago admitted with crohn flareup. He was started on hydrocortisone 100mg q8hr per GI recs on 7/3. His pain is being managed with PO opioid and not completely controlled at this time. We will continue to monitor his pain and treat accordingly however the hope is he will respond well to the steroid treatment and thus require less opioid supplementation. #Crohns flareup -IV steroids: 100mg IV q8hr Hydrocortisone -QuantiFERON Gold-consider outpatient -Liquid diet with polymeric supplements (3-4xday) -Will advance diet as monitor ability to tolerate -pain control: tylenol PO, Percocet q4 prn, MS IR 15mg -benzodiazepine for sleep aid as high dose steroids -GI recs: monitor cbc, bep, CRP, oral antispasmodics PRN, okay to start lovenox for DVT prophylaxis, remain off abx as not indicated -Will follow up outpatient with primary GI: Dr. Maher #Social issues -Will work to get patient state insurance; financial team will assist with application DVT prophylaxis: ambulation/ALPS Problem List: 1. Crohn's disease Pain Ratin Pain Location: abdomen Pain Goal: Pain 4 or less Pain Plan: see a/p Tomorrow's Labs & Rationales: cbc, bep, CRP
[2018-04-28 08:54] LABS: ABSOLUTE BASOPHIL COUNT 0 /CUMM (0.0-0.2); ABSOLUTE EOSINOPHIL COUNT 0 /CUMM (0.0-0.7); ABSOLUTE GRANULOCYTE CT 6.7 /CUMM (1.4-6.5); ABSOLUTE MONOCYTE COUNT 0.7 /CUMM (0.10-0.60); BASOPHIL % 0.2 % (0.0-2.0); EOSINOPHIL % 0.5 % (0-5); GRANULOCYTE % 78.5 % (42.2-75.2); HEMATOCRIT 28.7 % (42-52); MEAN CORPUSCULAR HGB 30.6 PG (27.0-31.0); MEAN PLATELET VOLUME 8.9 FL (7.4-10.4); PLATELET COUNT 299 /CUMM (130-400); RBC DISTRIBUTION WIDTH 12.8 % (11.5-14.5); RED BLOOD CELL CT 3.19 /CUMM (4.70-6.10); WHITE BLOOD CELL COUNT 8.5 /CUMM (4.8-10.8)
[2018-04-28 14:04] VITALS: BP 136/78
--- NOTE | 2018-04-28 16:48 | PN- Gastroenterology ---
Assessment/Plan GI Assessment/Recommendations: Assessment/Recommendations: Assessment/Recommendations: Crohn's ileitis with clinical recurrence off of therapy. The patient presents with long segment ileal inflammation without evident obstruction or penetrating disease. There is minor mesenteric involvement without phlegmonous change. His symptoms are that of progressively worsening pain, and blood per rectum with anemia. He has some degree of associated arthropathy, but no other evident extraintestinal manifestations. His urinary frequency and microscopic hematuria may be secondary to bladder involvement. There was a brief partial response to a short course of corticosteroids. Now day #3 on IV corticosteroids, with gradual improvement in abdominal/back pain and dysuria. May be contribution of constipation (on narcotics) to distention and pain. Recommendations * Please check QuantiFERON Gold (third request) in anticipation of resumption of biologic therapy. * Full liquid diet, with polymeric supplements. Do not advance to solid diet. * Continue hydrocortisone 100 mg IV every 8 hours * At this time, no indication for antibiotics * Monitor CBC, BMP, CRP * Dulcolax suppository. Would not give oral cathartic at this time. * With pain, first offer a short acting antispasmodic (hyoscyamine ODT). Simethicone is for gas, and is not antispasmodic. Second line analgesia should be an oral narcotic. Third line should be parenteral tramadol. * Continue benzodiazepine as needed for sleep. * Continue low molecular weight heparin. * Pending reinstitution of insurance, will likely be restarted on Remicade. This would be while on corticosteroids, and after checking antibodies to infliximab. Will defer to Dr. Maher, his outpatient rater associate, who will assume his inpatient care tomorrow. Subjective Subjective: The patient had no abdominal pain early this morning, but this recurred after eating. There's been no nausea or vomiting. He has not had a bowel movement. There's been no fever, chills or sweats. Objective Vital Signs and I&Os Vital Signs Date Time Temp Pulse Resp B/P B/P Pulse O2 O2 Flow FiO2 Mean Ox Delivery Rate 04/28 1404 98.0 64 18 136/78 100 Room Air 04/28 0704 98.0 70 16 124/68 95 04/27 2242 97.8 100 17 126/70 100 Room Air Intake & Output 04/28 1600 04/28 0400 04/27 1600 04/27 0400 07/03 1600 04/26 0400 Intake Total 3260 1000 5180 1200 1660 1000 Output Total 600 Balance 3260 400 5180 1200 1660 1000 Intake, IV 1820 1000 2400 3336 367 6785 Intake, Oral 1440 2780 720 Number 0 0 0 Bowel Movements Output, Urine 600 Patient 190 lb 190 lb Weight Weight Bed scale Measurement Method Physical Exam: Abdomen slightly distended, bowel sounds present, mildly tender in the right and left lower quadrant. No edema. Current Medications: Current Medications Sig/Robert Start time Last Medication Dose Route Stop Time Status Admin Acetaminophen 1,000 MG Q8 04/28 1400 AC 04/28 PO 1321 Acetaminophen 1,000 MG Q8 04/28 0739 DC 04/28 N/A 1 UNIT IV 0833 Alprazolam 0.5 MG ONCE ONE 04/28 0145 DC 04/28 PO 04/28 0146 0137 Alprazolam 0.5 MG AT BEDTIME 04/27 2100 AC 04/27 PO 05/04 2059 2124 Diphenhydramine HCl 25 MG ONCE ONE 04/27 2345 DC 04/27 PO 04/27 2346 2353 Enoxaparin Sodium 40 MG DAILY 04/28 0900 AC 04/28 SC 1058 Hydrocortisone 100 MG Q8H 04/26 2000 AC 04/28 Sodium Succinate IV 1124 Hydromorphone HCl 2 MG Q6P PRN 04/27 1345 DC 04/28 IV 0441 Hyoscyamine 0.125 MG Q4 HRS NEEDED PRN 04/26 1245 AC 04/27 PO 2125 Lactated Ringer's 1,000 ML Q6H 04/26 0945 DC 04/28 IV 0441 Morphine Sulfate 30 MG Q4 HRS NEEDED PRN 04/28 1315 AC 04/28 PO 1321 Morphine Sulfate 15 MG Q4 HRS NEEDED PRN 04/26 0845 DC 04/28 PO 0841 Nicotine 7 MG DAILY 04/26 1307 AC 04/28 TOP 0831 Oxycodone HCl 10 MG Q4 HRS NEEDED PRN 04/28 1315 AC 04/28 PO 1448 Oxycodone HCl 5 MG Q4 HRS NEEDED PRN 04/28 1130 DC 04/28 PO 1124 Oxycodone HCl 10 MG Q12 04/26 1945 DC 04/27 PO 2124 Simethicone 80 MG Q4P PRN 04/28 1130 AC 04/28 PO 1451 Results Pertinent Lab Results: Laboratory Tests 04/28 04/27 0743 0658 Chemistry Sodium (137 - 145 mmol/L) 140 Potassium (3.5 - 5.1 mmol/L) 4.4 Chloride (98 - 107 mmol/L) 98 Carbon Dioxide (22 - 30 mmol/L) 30 Anion Gap (5 - 16) 12 BUN (9 - 20 mg/dL) 5 L Creatinine (0.7 - 1.2 mg/dL) 0.6 L Estimated GFR (>60 ml/min) > 60 BUN/Creatinine Ratio (7 - 25 %) 8.3 Iron (49 - 181 ug/dL) 50 TIBC (261 - 462 ug/dL) 306 Ferritin (17.9 - 464 ng/mL) 164.0 C-Reactive Prot, Quant (<1.0 mg/dL) 5.5 H C-React Prot High Sens (1.0 - 3.0 mg/L) > 15.0 H Hematology CBC w Diff NO MAN DIFF REQ NO MAN DIFF REQ WBC (4.8 - 10.8 /CUMM) 8.5 9.5 RBC (4.70 - 6.10 /CUMM) 3.19 L 3.28 L Hgb (14.0 - 18.0 G/DL) 9.8 L 10.1 L Hct (42 - 52 %) 28.7 L 29.4 L MCV (80.0 - 94.0 FL) 90.0 89.7 MCH (27.0 - 31.0 PG) 30.6 30.9 MCHC (33.0 - 37.0 G/DL) 34.0 34.4 RDW (11.5 - 14.5 %) 12.8 12.5 Plt Count (130 - 400 /CUMM) 299 326 MPV (7.4 - 10.4 FL) 8.9 8.4 Gran % (42.2 - 75.2 %) 78.5 H 82.6 H Lymphocytes % (20.5 - 51.1 %) 12.0 L 10.6 L Monocytes % (1.7 - 9.3 %) 8.8 5.9 Eosinophils % (0 - 5 %) 0.5 0.7 Basophils % (0.0 - 2.0 %) 0.2 0.2 Absolute Granulocytes (1.4 - 6.5 /CUMM) 6.7 H 7.9 H Absolute Lymphocytes (1.2 - 3.4 /CUMM) 1.0 L 1.0 L Absolute Monocytes (0.10 - 0.60 /CUMM) 0.7 H 0.6 Absolute Eosinophils (0.0 - 0.7 /CUMM) 0 0.1 Absolute Basophils (0.0 - 0.2 /CUMM) 0 0 Serology Hep Bs Antigen (NONREACTIVE) NONREACTIVE 04/26 04/26 0841 0687 Chemistry Sodium (137 - 145 mmol/L) 135 L Potassium (3.5 - 5.1 mmol/L) 4.0 Chloride (98 - 107 mmol/L) 96 L Carbon Dioxide (22 - 30 mmol/L) 26 Anion Gap (5 - 16) 13 BUN (9 - 20 mg/dL) 10 Creatinine (0.7 - 1.2 mg/dL) 0.7 Estimated GFR (>60 ml/min) > 60 BUN/Creatinine Ratio (7 - 25 %) 14.3 Hematology CBC w Diff NO MAN DIFF REQ WBC (4.8 - 10.8 /CUMM) 9.4 RBC (4.70 - 6.10 /CUMM) 3.46 L Hgb (14.0 - 18.0 G/DL) 10.6 L Hct (42 - 52 %) 31.0 L MCV (80.0 - 94.0 FL) 89.5 MCH (27.0 - 31.0 PG) 30.7 MCHC (33.0 - 37.0 G/DL) 34.3 RDW (11.5 - 14.5 %) 12.4 Plt Count (130 - 400 /CUMM) 326 MPV (7.4 - 10.4 FL) 8.6 Gran % (42.2 - 75.2 %) 64.0 Lymphocytes % (20.5 - 51.1 %) 16.4 L Monocytes % (1.7 - 9.3 %) 15.9 H Eosinophils % (0 - 5 %) 3.1 Basophils % (0.0 - 2.0 %) 0.6 Absolute Granulocytes (1.4 - 6.5 /CUMM) 6.0 Absolute Lymphocytes (1.2 - 3.4 /CUMM) 1.5 Absolute Monocytes (0.10 - 0.60 /CUMM) 1.5 H Absolute Eosinophils (0.0 - 0.7 /CUMM) 0.3 Absolute Basophils (0.0 - 0.2 /CUMM) 0.1 Urines Urine Color (YEL,AMB,STR) YEL Urine Clarity (CLEAR) CLEAR Urine pH (5.0 - 8.0) 6.5 Ur Specific [place] (1.001 - 1.035) 1.010 Urine Protein (NEG,<30 MG/DL) NEG Urine Ketones (NEG) NEG Urine Nitrite (NEG) NEG Urine Bilirubin (NEG) NEG Urine Urobilinogen (0.1 - 1.0 EU/dl) 0.2 Ur Leukocyte Esterase (NEG) NEG Ur Microscopic SEDIMENT EXAMINED Urine RBC (0 - 5 /HPF) 3-5 Urine WBC (0 - 2 /HPF) RARE Urine Hemoglobin (NEG) SMALL H Urine Glucose (N MG/DL) NEG 04/26 04/25 0046 2214 Chemistry Sodium (137 - 145 mmol/L) 141 Potassium (3.5 - 5.1 mmol/L) 4.6 Chloride (98 - 107 mmol/L) 98 Carbon Dioxide (22 - 30 mmol/L) 32 H Anion Gap (5 - 16) 12 BUN (9 - 20 mg/dL) 12 Creatinine (0.7 - 1.2 mg/dL) 0.9 Estimated GFR (>60 ml/min) > 60 BUN/Creatinine Ratio (7 - 25 %) 13.3 Glucose (65 - 99 mg/dL) 91 Lactic Acid (0.7 - 2.1 mmol/L) Cancelled 0.6 L Calcium (8.4 - 10.2 mg/dL) 9.4 Total Bilirubin (0.2 - 1.3 mg/dL) 0.5 AST (17 - 59 U/L) 25 ALT (21 - 72 U/L) 28 Alkaline Phosphatase (< 127 U/L) 61 C-Reactive Prot, Quant (<1.0 mg/dL) 6.7 H Total Protein (6.3 - 8.2 g/dL) 7.2 Albumin (3.5 - 5.0 g/dL) 4.2 Globulin (1.9 - 4.2 gm/dL) 3.0 Albumin/Globulin Ratio (1.1 - 2.2 %) 1.4 Amylase (30 - 110 U/L) 42 Lipase (23 - 300 U/L) 56 Hematology CBC w Diff NO MAN DIFF REQ WBC (4.8 - 10.8 /CUMM) 8.9 RBC (4.70 - 6.10 /CUMM) 4.11 L Hgb (14.0 - 18.0 G/DL) 12.4 L Hct (42 - 52 %) 36.6 L MCV (80.0 - 94.0 FL) 89.2 MCH (27.0 - 31.0 PG) 30.2 MCHC (33.0 - 37.0 G/DL) 33.8 RDW (11.5 - 14.5 %) 12.7 Plt Count (130 - 400 /CUMM) 406 H MPV (7.4 - 10.4 FL) 8.1 Gran % (42.2 - 75.2 %) 68.1 Lymphocytes % (20.5 - 51.1 %) 17.0 L Monocytes % (1.7 - 9.3 %) 11.2 H Eosinophils % (0 - 5 %) 3.3 Basophils % (0.0 - 2.0 %) 0.4 Absolute Granulocytes (1.4 - 6.5 /CUMM) 6.0 Absolute Lymphocytes (1.2 - 3.4 /CUMM) 1.5 Absolute Monocytes (0.10 - 0.60 /CUMM) 1.0 H Absolute Eosinophils (0.0 - 0.7 /CUMM) 0.3 Absolute Basophils (0.0 - 0.2 /CUMM) 0
[2018-04-28 21:51] VITALS: BP 130/88
[2018-04-29 06:12] VITALS: BP 139/88
--- NOTE | 2018-04-29 08:01 | PN- Housestaff ---
See Addendum Subjective Follow-up For: Crohn's flareup Complaints: continued abdominal pain Subjective: Patient states he continues to have uncontrolled abdominal pain despite the use of multiple narcotic medications and antispasmodic agents. He states he receives some relief of symptoms with Ativan 1 mg. He states he used a suppository last night that has not resulted in a bowel movement since admission. He continues to rate his pain from 7-10 out of 10. He states he has taken Lexapro in the past for anxiety and depression. He has no longer on this medication however he is open to the idea of restarting it. He denies fever, chills, chest pain, shortness of breath, nausea, vomiting, diarrhea, headache Review of Systems Constitutional: Reports: see HPI. Objective Last 24 Hrs of Vital Signs/I&O Vital Signs Date Time Temp Pulse Resp B/P B/P Pulse O2 O2 Flow FiO2 Mean Ox Delivery Rate 04/29 1341 97.3 83 20 132/80 97 Room Air 04/29 0612 98.7 72 20 139/88 97 04/28 2151 98.2 55 18 130/88 94 Intake & Output 04/29 1600 04/29 0800 04/29 0000 Intake Total 120 120 Output Total Balance 120 120 Intake, Oral 120 120 Physical Exam General Appearance: Alert, Oriented X3, Cooperative, Mild Distress Skin: No Rashes Skin Temp/Moisture Exam: Warm/Dry HEENT: Atraumatic, PERRLA Neck: Supple Cardiovascular: Regular Rate, Normal S1, Normal S2, No Murmurs Lungs: Clear to Auscultation, Normal Air Movement Abdomen: Normal Bowel Sounds, Soft, mild distension Extremities: No Edema, Normal Pulses Assessment/Plan Assessment: 42 year old male with Crohns Disease diagnosed 7 years ago admitted with crohn flareup. He was started on hydrocortisone 100mg q8hr per GI recs on 04/26. His pain is being managed with PO opioid and not completely controlled at this time. We continue to adjust the medication and have discussed the counterproductive side effect of constipation with chronic narcotic use. We will continue to monitor his pain and treat accordingly however the hope is he will respond well to the steroid treatment and thus require less opioid supplementation. #Crohns flareup -IV steroids: 100mg IV q8hr Hydrocortisone -QuantiFERON Gold-will order outpatient -regular diet as tolerated; may need to back off to liquids if unable to tolerate -pain control: tylenol PO, Percocet 10mg q4 prn, MS IR 30mg -benzodiazepine: Ativan 1mg for sleep aid as high dose steroids -GI recs: monitor cbc, bep, CRP, oral antispasmodics PRN, remain off abx as not indicated -Will follow up outpatient with primary GI: Dr. Maher #Social issues -Patient now has [employer] insurance DVT prophylaxis: ambulation/ALPS/lovenox Problem List: 1. Exacerbation of Crohn's disease Pain Ratin Pain Location: abdomen Pain Goal: Pain 4 or less Pain Plan: see a/p Tomorrow's Labs & Rationales: none
[2018-04-29 08:06] LABS: ABSOLUTE BASOPHIL COUNT 0 /CUMM (0.0-0.2); ABSOLUTE EOSINOPHIL COUNT 0 /CUMM (0.0-0.7); ABSOLUTE GRANULOCYTE CT 6.8 /CUMM (1.4-6.5); ABSOLUTE MONOCYTE COUNT 1.4 /CUMM (0.10-0.60); BASOPHIL % 0.3 % (0.0-2.0); EOSINOPHIL % 0.4 % (0-5); GRANULOCYTE % 73.5 % (42.2-75.2); HEMATOCRIT 30.8 % (42-52); MEAN CORPUSCULAR HGB 29.8 PG (27.0-31.0); MEAN CORPUSCULAR VOLUME 90.1 FL (80.0-94.0); MEAN PLATELET VOLUME 9.1 FL (7.4-10.4); PLATELET COUNT 296 /CUMM (130-400); RBC DISTRIBUTION WIDTH 12.5 % (11.5-14.5); RED BLOOD CELL CT 3.42 /CUMM (4.70-6.10); WHITE BLOOD CELL COUNT 9.2 /CUMM (4.8-10.8)
--- NOTE | 2018-04-29 13:05 | Patient Discharge Instructions ---
Discharge Instructions General Discharge Information You were seen/treated for: Crohn's disease flare Watch for these problems: Fever, chest pain, shortness of breath Special Instructions: Please take all medications as directed. Please follow-up with primary care and gastroenterology Diet Continue normal diet: Yes Recommended Diet: Low Residue Activity Full Activity/No Limits: Yes Acute Coronary Syndrome Inclusion Criteria At DC or during hospital stay patient has or had the following: ACS DIAGNOSIS No Discharge Core Measures Meds if any: Prescribed or Continued at Discharge Meds if any: NOT Prescribed or Continued at Discharge Congestive Heart Failure Inclusion Criteria At DC or during hospital stay patient has or had the following: CHF DIAGNOSIS No Discharge Core Measures Meds if any: Prescribed or Continued at Discharge Meds if any: NOT Prescribed or Continued at Discharge Cerebrovascular accident Inclusion Criteria At DC or during hospital stay patient has or had the following: CVA/TIA Diagnosis No Discharge Core Measures Meds if any: Prescribed or Continued at Discharge Meds if any: NOT Prescribed or Continued at Discharge Venous thromboembolism Inclusion Criteria VTE Diagnosis No VTE Type NONE VTE Confirmed by (Test) NONE Discharge Core Measures - Per Current guidelines, there needs to be overlap - treatment for the first 5 days of Warfarin therapy. - If discharged on Warfarin prior to 5 days of - overlap therapy, the patient will need to be - assessed for post discharge needs including - *Post discharge parental anticoagulation - *Warfarin and/or parental anticoagulation education - *Follow up date to check INR post discharge At least 5 days overlap therapy as Inpatient No Meds if any: Prescribed or Continued at Discharge Note: Overlap Therapy is Warfarin and Anticoagulant Meds if any: NOT Prescribed or Continued at Discharge
[2018-04-29 13:41] VITALS: BP 132/80
--- NOTE | 2018-04-29 14:54 | PN- Gastroenterology ---
Assessment/Plan GI Assessment/Recommendations: Assessment: Mr. Mireles is a 20-year-old male with ileal Crohn's disease admitted with a flare likely secondary to him being off of Remicade for a period of months and for which he is on IV steroids wih improvement in his diarrhea and rectal bleeding, but he is still having a significant amount of abdominal pain and he is also complaining of constipation which I suspect is from the narcotics he is taking. Recommendaions: 1. Continue IV steroids through today and will consider changing to oral prednisone in the am. 2. Advance to low residue diet as tolerared. 3. Continue miralax and would increase the frequency until he has a bowel movement. 4. Analgesia as needed preferrably with anti-spasmodics and would attempt to minimize narcotic use. 5. Follow lytes and replete as needed. 6. Consideration will be given to re-start his remicade as an inpatient if hospital would cover the cost and if his insurnace has been set up so that he can continue it as an outpatient. 7. If able to would check antibodies to remicade now I will continue to follow this patient and make further recommendations based on his clinical course and results of repeat blood work and imaging if it is obtained. Problem List: 1. Crohn's disease Subjective Subjective: pts main complaint today is of diffuse pain and constipation. Objective Vital Signs and I&Os Vital Signs Date Time Temp Pulse Resp B/P B/P Pulse O2 O2 Flow FiO2 Mean Ox Delivery Rate 04/29 1341 97.3 83 20 132/80 97 Room Air 04/29 0612 98.7 72 20 139/88 97 04/28 2151 98.2 55 18 130/88 94 Intake & Output 04/29 1600 04/29 0400 04/28 1600 04/28 0400 04/27 1600 04/27 0400 Intake Total 0204 991 9599 1000 5180 1200 Output Total 600 Balance 9858 904 8622 400 5180 1200 Intake, IV 1820 1000 2400 1200 Intake, Oral 4829 047 1362 2780 Number 0 0 0 Bowel Movements Output, Urine 600 Patient 190 lb Weight Current Medications: Current Medications Sig/Robert Start time Last Medication Dose Route Stop Time Status Admin Acetaminophen 1,000 MG Q8 04/28 1400 AC 04/29 PO 1323 Alprazolam 1 MG AT BEDTIME 04/28 2100 AC 04/28 PO 05/05 Alprazolam 0.5 MG AT BEDTIME 04/27 2100 DC 04/27 PO 05/04 Bisacodyl 10 MG ONCE ONE 04/28 1915 DC 04/28 W[place] 04/28 Diphenhydramine HCl 25 MG .STK-MED ONE 04/29 1418 DC PO 04/29 1419 Diphenhydramine HCl 25 MG ONCE ONE 04/29 0245 DC 04/29 PO 04/29 0246 0244 Docusate Sodium 100 MG .STK-MED ONE 04/29 1418 DC PO 04/29 1419 Docusate Sodium 100 MG DAILY PRN 04/29 0230 DC 04/29 PO 0231 Enoxaparin Sodium 40 MG DAILY 04/28 900 AC 04/29 SC 1038 Hydrocortisone 100 MG Q8H 04/26 2000 AC 04/29 Sodium Succinate IV 1323 Hyoscyamine 0.25 MG Q4 HRS NEEDED PRN 04/29 0915 AC 04/29 PO 1323 Hyoscyamine 0.125 MG Q4 HRS NEEDED PRN 04/26 1245 DC 04/29 PO 0610 Morphine Sulfate 30 MG Q4 HRS NEEDED PRN 04/28 1315 AC 04/29 PO 1037 Nicotine 7 MG DAILY 04/26 1307 AC 04/29 TOP 1038 Oxycodone HCl 10 MG Q4 HRS NEEDED PRN 04/28 1315 AC 04/29 PO 1037 Polyethylene Glycol 17 GM DAILY PRN 04/29 0645 CAN PO Polyethylene Glycol 17 GM DAILY PRN 04/29 0230 DC PO Senna 187 MG AT BEDTIME PRN 04/29 0230 DC PO Simethicone 80 MG Q4P PRN 04/28 1130 AC 04/29 PO 0642 Results Pertinent Lab Results: Laboratory Tests 04/29 04/28 0717 0743 Chemistry Sodium (137 - 145 mmol/L) 141 140 Potassium (3.5 - 5.1 mmol/L) 4.2 4.4 Chloride (98 - 107 mmol/L) 100 98 Carbon Dioxide (22 - 30 mmol/L) 29 30 Anion Gap (5 - 16) 12 12 BUN (9 - 20 mg/dL) 6 L 5 L Creatinine (0.7 - 1.2 mg/dL) 0.6 L 0.6 L Estimated GFR (>60 ml/min) > 60 > 60 BUN/Creatinine Ratio (7 - 25 %) 10.0 8.3 C-Reactive Prot, Quant (<1.0 mg/dL) 5.5 H C-React Prot High Sens (1.0 - 3.0 mg/L) > 15.0 H Hematology CBC w Diff NO MAN DIFF REQ NO MAN DIFF REQ WBC (4.8 - 10.8 /CUMM) 9.2 8.5 RBC (4.70 - 6.10 /CUMM) 3.42 L 3.19 L Hgb (14.0 - 18.0 G/DL) 10.2 L 9.8 L Hct (42 - 52 %) 30.8 L 28.7 L MCV (80.0 - 94.0 FL) 90.1 90.0 MCH (27.0 - 31.0 PG) 29.8 30.6 MCHC (33.0 - 37.0 G/DL) 33.0 34.0 RDW (11.5 - 14.5 %) 12.5 12.8 Plt Count (130 - 400 /CUMM) 296 299 MPV (7.4 - 10.4 FL) 9.1 8.9 Gran % (42.2 - 75.2 %) 73.5 78.5 H Lymphocytes % (20.5 - 51.1 %) 11.1 L 12.0 L Monocytes % (1.7 - 9.3 %) 14.7 H 8.8 Eosinophils % (0 - 5 %) 0.4 0.5 Basophils % (0.0 - 2.0 %) 0.3 0.2 Absolute Granulocytes (1.4 - 6.5 /CUMM) 6.8 H 6.7 H Absolute Lymphocytes (1.2 - 3.4 /CUMM) 1.0 L 1.0 L Absolute Monocytes (0.10 - 0.60 /CUMM) 1.4 H 0.7 H Absolute Eosinophils (0.0 - 0.7 /CUMM) 0 0 Absolute Basophils (0.0 - 0.2 /CUMM) 0 0 07/04 0658 Chemistry Iron (49 - 181 ug/dL) 50 TIBC (261 - 462 ug/dL) 306 Ferritin (17.9 - 464 ng/mL) 164.0 Hematology CBC w Diff NO MAN DIFF REQ WBC (4.8 - 10.8 /CUMM) 9.5 RBC (4.70 - 6.10 /CUMM) 3.28 L Hgb (14.0 - 18.0 G/DL) 10.1 L Hct (42 - 52 %) 29.4 L MCV (80.0 - 94.0 FL) 89.7 MCH (27.0 - 31.0 PG) 30.9 MCHC (33.0 - 37.0 G/DL) 34.4 RDW (11.5 - 14.5 %) 12.5 Plt Count (130 - 400 /CUMM) 326 MPV (7.4 - 10.4 FL) 8.4 Gran % (42.2 - 75.2 %) 82.6 H Lymphocytes % (20.5 - 51.1 %) 10.6 L Monocytes % (1.7 - 9.3 %) 5.9 Eosinophils % (0 - 5 %) 0.7 Basophils % (0.0 - 2.0 %) 0.2 Absolute Granulocytes (1.4 - 6.5 /CUMM) 7.9 H Absolute Lymphocytes (1.2 - 3.4 /CUMM) 1.0 L Absolute Monocytes (0.10 - 0.60 /CUMM) 0.6 Absolute Eosinophils (0.0 - 0.7 /CUMM) 0.1 Absolute Basophils (0.0 - 0.2 /CUMM) 0 Serology Hep Bs Antigen (NONREACTIVE) NONREACTIVE
[2018-04-29 21:39] VITALS: BP 120/70
[2018-04-30 06:50] VITALS: BP 116/78
--- NOTE | 2018-04-30 09:22 | PN- Housestaff ---
JerezLynndick 04/30/18 0920: Subjective Follow-up For: Crohn's flare up Complaints: not passing a stool Subjective: Patient was seen and examined at bedside, was eating breakfast. Patient is c/o inability to pass stools, has tried MOM/Miralax but not successful, states he is eating less because of that. Pain states is a constant 7/10, minimally improves with percocet. Expressing concerns of swelling and pain in right knee and ankle. states he noticed swelling yesterday after taking shower. Patient has been walking around the wards throughout the day, states swellingg decreased after elevating his legs throughout night. Patient agrees to trying fleet enema today. Review of Systems Constitutional: Denies: chills, diaphoresis, fever. Cardiovascular: Denies: chest pain, palpitations. Respiratory: Denies: cough, hemoptysis, short of breath. Gastrointestinal: Reports: constipation. Denies: diarrhea, nausea, vomiting. Objective Last 24 Hrs of Vital Signs/I&O Vital Signs Date Time Temp Pulse Resp B/P B/P Pulse O2 O2 Flow FiO2 Mean Ox Delivery Rate 04/30 1422 98.4 55 18 126/80 97 Room Air 04/30 0650 98.3 61 18 116/78 96 Room Air 04/29 2139 97.7 82 18 120/70 97 Room Air Intake & Output 04/30 1600 04/30 0800 04/30 0000 Intake Total 720 120 240 Output Total Balance 720 120 240 Intake, Oral 720 120 240 Physical Exam General Appearance: Alert, Oriented X3, Cooperative Skin: No Rashes HEENT: Atraumatic, EOMI Neck: Supple, No LAD Cardiovascular: Regular Rate, Normal S1, Normal S2 Lungs: Clear to Auscultation, Normal Air Movement Abdomen: Normal Bowel Sounds, Soft, No Masses, generalized tenderness to palpation worst in RLQ Neurological: Normal Gait, Normal Speech Assessment/Plan Assessment: 42 year old male with Crohns Disease diagnosed 7 years ago admitted with crohn flareup. He was started on hydrocortisone 100mg q8hr per GI recs on 04/26. His pain is being managed with PO opioid and not completely controlled at this time. We continue to adjust the medication and have discussed the counterproductive side effect of constipation with chronic narcotic use. We will continue to monitor his pain and treat accordingly however the hope is he will respond well to the steroid treatment and thus require less opioid supplementation. #Opioid Induced Constipation Patient has been recieving extensive amounts of opioids for pain relief since hospitalization. Has failed to pass stool with Milkof Magnesia, Miralax, Colace, Sonokot, Bisacodyl. Today patient was given Fleet enema and passed minimal stool Plan: - Obtain Abdominal X-ray to r/o ileus and perforation - 1 dose of Relestor #Crohns flareup -IV steroids: 100mg IV q8hr Hydrocortisone -QuantiFERON Gold-will order outpatient -regular diet as tolerated; may need to back off to liquids if unable to tolerate -pain control: tylenol PO, Percocet 10mg q4 prn, MS IR 30mg -benzodiazepine: Ativan 1mg for sleep aid as high dose steroids -GI recs: monitor cbc, bep, CRP, oral antispasmodics PRN, remain off abx as not indicated -Will follow up outpatient with primary GI: Dr. Maher #Social issues -Patient now has [employer] insurance DVT prophylaxis: ambulation/ALPS/lovenox Problem List: 1. Crohn's disease Pain Ratin Pain Location: generalized to abdomen Pain Goal: Pain 4 or less Pain Plan: roxicodone Tomorrow's Labs & Rationales: none Kristine Skinner MD 04/30/18 1730: Attending MD Review Statement Attending Statement Attending MD Statement: examined this patient, discuss w/resident/PA/FILTER PRESS SUPERVISOR, agreed w/resident/PA/FILTER PRESS SUPERVISOR, reviewed EMR data (avail) Attending Assessment/Plan: 28M PMH Crohn's disease presenting with several days of diffuse abdominal pain, R>L, with nausea, decreased appetite. Had been on Remicaide which controlled his symptoms but stopped 3 months ago due to lack of health insurance. Had an exacerbation 3 weeks ago and treated successfully with Prednisone, symptoms restarted since stopping it and have worsened since. Hemodynamically stable, labs reviewed. Improving on Solucortef. Stil experiencing diffuse abdominal discomfort and bloating, no BM for 3 days. Pain has improved since admission. Also reports aching lower back pain. 1. Crohn's flare 2. Constipation Plan - Continue on general medicine - Discontinue Solucortef, start Prednisone 60mg daily - Obtain abdominal x-ray, single view. If no sign of obstruction or ileus, may give one dose of Relistor for opioid induced constipation - Continue pain control - Continue Simethicone, Hyoscimine, Miralax - DVT PPx - Anticipated discharge tomorrow if can have a BM on Prednisone taper as outlined by GI - Follow GI recommendations - No labs tomorrow
--- NOTE | 2018-04-30 13:22 | PN- Gastroenterology ---
Assessment/Plan GI Assessment/Recommendations: Assessment: Mr. Farley is a 28 year old male with crohns disease admitted with a flare likely secondary to him being off of remicade for a prolonged period of time. He has not been having any diarrhea since being on IV steroids and in fact he is now constipated and this appears to be leading to worsening abdominal discomfort for which he is requesting narcotics which is likely exacerbating his constipation. Recommendations: 1. Change IV hydrocortisone to 60 mg of prednisone daily with a plan to taper by 10 mg each week. 2. Minimize narcotic use 3. Use antispasmodics as needed for abdominal pain 4. For constipation give one bottle of magnesium citrate now and continue a standing dose of miralax or lactulose and would also consider starting movantik or simproic for narotic induced constipation if this is available in the hospital. 5. Low residue diet as tolerated. 6. Will plan to re-start remicade as an outpatient if remicade antibodies are negative which can also be done as an outpatient. 7. Follow lytes and replete as needed I will continue to follow this patient and make further recommendations based on his clinical course and results of repeat blood work. Problem List: 1. Crohns disease 2. Exacerbation of Crohn's disease Subjective Subjective: continue to complain of abdominal pain and inablitity to have a bowel movement. is tolerating a diet without vomiting Objective Vital Signs and I&Os Vital Signs Date Time Temp Pulse Resp B/P B/P Pulse O2 O2 Flow FiO2 Mean Ox Delivery Rate 04/30 0650 98.3 61 18 116/78 96 Room Air 04/29 2139 97.7 82 18 120/70 97 Room Air 04/29 1341 97.3 83 20 132/80 97 Room Air Intake & Output 04/30 1600 07 0400 04/29 1600 04/29 0400 04/28 1600 04/28 0400 Intake Total 618 686 7045 120 3260 1000 Output Total 600 Balance 217 945 5796 120 3260 400 Intake, IV 1820 1000 Intake, Oral 740 868 6553 120 1440 Number 0 Bowel Movements Output, Urine 600 Patient 190 lb Weight Physical Exam General Appearance: well developed/nourished, no apparent distress, comfortable Head: atraumatic, normal appearance Neck: supple, full range of motion Respiratory: normal breath sounds, no respiratory distress Cardiovascular: regular rate/rhythm Abdomen: normal bowel sounds Extremities: normal inspection, normal range of motion Neurologic/Psychiatric: no motor/sensory deficits, awake, alert, oriented x 3 Current Medications: Current Medications Sig/Robert Start time Last Medication Dose Route Stop Time Status Admin Acetaminophen 1,000 MG Q8 04/28 1400 AC 04/30 PO 0533 Alprazolam 1 MG AT BEDTIME 04/28 2100 AC 04/29 PO 05/05 2059 2146 Diphenhydramine HCl 25 MG .STK-MED ONE 04/29 1418 DC PO 04/29 1419 Docusate Sodium 100 MG .STK-MED ONE 04/29 1418 DC PO 04/29 1419 Enoxaparin Sodium 40 MG DAILY 04/28 0900 04/30 SC 0815 Escitalopram Oxalate 10 MG DAILY 04/29 1515 04/30 PO 0815 Hydrocortisone 100 MG Q8H 04/26 2000 AC 04/30 Sodium Succinate IV 1110 Hyoscyamine 0.25 MG Q4 HRS NEEDED PRN 04/29 0915 04/30 PO 0556 Magnesium Hydroxide 30 ML ONE ONE 04/29 1830 DC 04/29 PO 04/29 1831 1837 Morphine Sulfate 30 MG Q4 HRS NEEDED PRN 04/28 1315 DC 04/29 PO 1505 Nicotine 7 MG DAILY 04/26 1307 AC 04/30 TOP 0815 Oxycodone HCl 10 MG Q4 HRS NEEDED PRN 04/28 1315 AC 04/30 PO 1245 Polyethylene Glycol 17 GM BID 04/29 1530 AC 04/30 PO 0815 Simethicone 40 MG Q4P PRN 04/29 1615 04/30 PO 0556 Simethicone 80 MG Q4P PRN 04/28 1130 TN 04/29 PO 0642 Sodium Phosphate 1 UNIT ONCE ONE 04/30 0930 DC 04/30 VT 04/30 0931 1110 Results Pertinent Lab Results: Laboratory Tests 04/29 04/28 0717 0743 Chemistry Sodium (137 - 145 mmol/L) 141 140 Potassium (3.5 - 5.1 mmol/L) 4.2 4.4 Chloride (98 - 107 mmol/L) 100 98 Carbon Dioxide (22 - 30 mmol/L) 29 30 Anion Gap (5 - 16) 12 12 BUN (9 - 20 mg/dL) 6 L 5 L Creatinine (0.7 - 1.2 mg/dL) 0.6 L 0.6 L Estimated GFR (>60 ml/min) > 60 > 60 BUN/Creatinine Ratio (7 - 25 %) 10.0 8.3 C-Reactive Prot, Quant (<1.0 mg/dL) 5.5 H C-React Prot High Sens (1.0 - 3.0 mg/L) > 15.0 H Hematology CBC w Diff NO MAN DIFF REQ NO MAN DIFF REQ WBC (4.8 - 10.8 /CUMM) 9.2 8.5 RBC (4.70 - 6.10 /CUMM) 3.42 L 3.19 L Hgb (14.0 - 18.0 G/DL) 10.2 L 9.8 L Hct (42 - 52 %) 30.8 L 28.7 L MCV (80.0 - 94.0 FL) 90.1 90.0 MCH (27.0 - 31.0 PG) 29.8 30.6 MCHC (33.0 - 37.0 G/DL) 33.0 34.0 RDW (11.5 - 14.5 %) 12.5 12.8 Plt Count (130 - 400 /CUMM) 296 299 MPV (7.4 - 10.4 FL) 9.1 8.9 Gran % (42.2 - 75.2 %) 73.5 78.5 H Lymphocytes % (20.5 - 51.1 %) 11.1 L 12.0 L Monocytes % (1.7 - 9.3 %) 14.7 H 8.8 Eosinophils % (0 - 5 %) 0.4 0.5 Basophils % (0.0 - 2.0 %) 0.3 0.2 Absolute Granulocytes (1.4 - 6.5 /CUMM) 6.8 H 6.7 H Absolute Lymphocytes (1.2 - 3.4 /CUMM) 1.0 L 1.0 L Absolute Monocytes (0.10 - 0.60 /CUMM) 1.4 H 0.7 H Absolute Eosinophils (0.0 - 0.7 /CUMM) 0 0 Absolute Basophils (0.0 - 0.2 /CUMM) 0 0
[2018-04-30 14:22] VITALS: BP 126/80
[2018-04-30 21:33] VITALS: BP 149/96
--- NOTE | 2018-04-30 23:10 | RADIOLOGY REPORT ---
EXAMINATION: XR ABDOMEN CLINICAL INDICATION: Rule out obstruction/perforation. COMPARISON: CT dated 04/25/2018 TECHNIQUE: AP view of the abdomen. FINDINGS: There are few segments of borderline dilated small bowel in the left mid abdomen measuring up to 3.3 cm in diameter. Air-fluid levels are not apparent on supine views alone. Assessment for free air is limited. Moderate amount of stool is present throughout the ascending and transverse colon. Phleboliths are present in the pelvis. Osseous structures are unremarkable. No fracture or malalignment. IMPRESSION: A few segments of borderline dilated small bowel in the left mid abdomen which may be due to ileus or obstruction. Assessment for perforation is limited on supine views only. Consider obtaining an upright view or lateral decubitus view to exclude free air.
[2018-05-01 06:32] VITALS: BP 114/71
--- NOTE | 2018-05-01 10:32 | PN- Housestaff ---
SolitarioLynndick 05/01/18 1027: Subjective Follow-up For: Crohns Complaints: pain scale (0-10) Subjective: Patient is seen and examined at bedside. He is in position because it helps with his pain and cramps. States his pain is 9/10 this morning, has had some breakfast but unable to have more because of pain. Is having some nausea, does not require any medications for it. He had passed some liquid stool last night after recieving some ativan last night, states that was the first time he felt the need to go. Review of Systems Constitutional: Denies: chills, diaphoresis, fever. Cardiovascular: Denies: chest pain, palpitations. Respiratory: Denies: cough, hemoptysis. Gastrointestinal: Reports: abdominal pain, nausea. Denies: constipation, diarrhea, vomiting. Objective Last 24 Hrs of Vital Signs/I&O Vital Signs Date Time Temp Pulse Resp B/P B/P Pulse O2 O2 Flow FiO2 Mean Ox Delivery Rate 05/01 0632 99.0 78 20 114/71 97 Room Air 04/30 2133 98.6 52 18 149/96 100 04/30 1422 98.4 55 18 126/80 97 Room Air Intake & Output 05/01 1600 /08 0800 05/01 0000 Intake Total 120 425 Output Total Balance 120 425 Intake, Oral 120 425 Physical Exam General Appearance: Alert, Oriented X3, Cooperative Skin: No Rashes HEENT: Atraumatic, PERRLA, EOMI Neck: Supple, No LAD Cardiovascular: Regular Rate, Normal S1, Normal S2 Lungs: Clear to Auscultation, Normal Air Movement Abdomen: Normal Bowel Sounds, generalized tenderness to palpation, worst at RLQ. Negative for Rovsing and rebound tenderness Assessment/Plan Assessment: 42 year old male with Crohns Disease diagnosed 7 years ago admitted with crohn flareup. He was started on hydrocortisone 100mg q8hr per GI recs on 04/26. His pain is being managed with PO opioid and not completely controlled at this time. We continue to adjust the medication and have discussed the counterproductive side effect of constipation with chronic narcotic use. We will continue to monitor his pain and treat accordingly however the hope is he will respond well to the steroid treatment and thus require less opioid supplementation. #Opioid Induced Constipation Patient has been recieving extensive amounts of opioids for pain relief since hospitalization. Has failed to pass stool with Milkof Magnesia, Miralax, Colace, Sonokot, Bisacodyl. Today patient was given Fleet enema and passed minimal stool Plan: - Upright abdominal X-ray on 05/01/18 shows mild small bowel obstruction - D/c Q4 PRN oxicodone 14mg - NPO #Crohns flareup -IV steroids: 100mg IV q8hr Hydrocortisone -QuantiFERON Gold-will order outpatient -regular diet as tolerated; may need to back off to liquids if unable to tolerate -pain control: tylenol PO, Percocet 10mg q4 prn, MS IR 30mg -benzodiazepine: Ativan 1mg for sleep aid as high dose steroids -GI recs: monitor cbc, bep, CRP, oral antispasmodics PRN, remain off abx as not indicated -Will follow up outpatient with primary GI: Dr. Maher #Social issues -Patient now has [employer] insurance DVT prophylaxis: ambulation/ALPS/lovenox Problem List: 1. Exacerbation of Crohn's disease Pain Ratin Pain Location: abdomen Pain Goal: Pain 7 or less Pain Plan: as needed Oxicodone Tomorrow's Labs & Rationales: none DVT/Prophylaxis: mechanical Kristine Skinner MD 05/01/18 1455: Attending MD Review Statement Attending Statement Attending MD Statement: examined this patient, discuss w/resident/PA/HOUSING INSPECTOR, agreed w/resident/PA/HOUSING INSPECTOR, reviewed EMR data (avail) Attending Assessment/Plan: 28M PMH Crohn's disease presenting with several days of diffuse abdominal pain, R>L, with nausea, decreased appetite. Had been on Remicaide which controlled his symptoms but stopped 3 months ago due to lack of health insurance. Had an exacerbation 3 weeks ago and treated successfully with Prednisone, symptoms restarted since stopping it and have worsened since. Hemodynamically stable, labs reviewed. Improving on Solucortef. Stil experiencing diffuse abdominal discomfort and bloating, no BM for 3 days. Pain has improved since admission. Also reports aching lower back pain. Abdominal x-ray shows ileus. 1. Crohn's flare 2. Constipation 3. Ileus Plan - Continue on general medicine - Prednisone 60mg daily - Upright abdominal x-ray - Continue pain control - Continue Simethicone, Hyoscimine, Miralax - DVT PPx - Follow GI recommendations - No labs tomorrow
[2018-05-01 13:57] VITALS: BP 138/75
--- NOTE | 2018-05-01 17:11 | RADIOLOGY REPORT ---
EXAMINATION: XR ABDOMEN CLINICAL INDICATION: History of Crohn disease. Evaluate for ileus and bowel perforation. COMPARISON: [facility] from 04/30/2018. Abdomen CT from 04/25/2018. TECHNIQUE: AP view of the abdomen obtained with patient in upright position. FINDINGS: Lung bases are unremarkable. On 04/30/2018, borderline dilatation of small bowel was seen in the left mid abdomen. On this current examination acquired with the patient in an upright position, there is a relative paucity of gas within small and large bowel. Scattered air-fluid levels are seen. The size of the small bowel is difficult to precisely measure. The largest loop is approximately 3.2 cm. No pneumatosis intestinalis or pneumoperitoneum. IMPRESSION: The small bowel is mildly dilated and has air-fluid levels. Findings are suggestive of mild small bowel obstruction.
[2018-05-01 20:56] VITALS: BP 120/70
[2018-05-02 06:57] VITALS: BP 125/59
--- NOTE | 2018-05-02 08:24 | PN- Housestaff ---
See Addendum Subjective Follow-up For: crohns flareup Complaints: pain scale (0-10), abd pain Subjective: Patient states he continues to have abdominal pain intermittent in intensity ranging from 8-10/10. He states he is passing flatus, but has not had a BM since admission. He reports return of his back pain that was present on admission, but had resolved after starting IV steroids. He states he continues to feel bad and nothing is helping the pain. He states he does not feel as bloated as before, mostly complains of pain. Denies fever, chills, n/v/d, chest pain, SOB. Review of Systems Constitutional: Reports: see HPI. Objective Last 24 Hrs of Vital Signs/I&O Vital Signs Date Time Temp Pulse Resp B/P B/P Pulse O2 O2 Flow FiO2 Mean Ox Delivery Rate 05/02 0657 98.4 75 18 125/59 96 05/01 2056 98.8 54 18 120/70 100 05/01 1357 98.9 71 20 138/75 96 Room Air Intake & Output 05/02 1600 05/02 0800 05/02 0000 Intake Total 600 100 Output Total Balance 600 100 Intake, IV 600 100 Physical Exam General Appearance: Alert, Oriented X3, Cooperative, Mild Distress, Patient usually pacing the floor in room when I enter; no matter what time of day. Skin: No Rashes Skin Temp/Moisture Exam: Warm/Dry HEENT: Atraumatic, PERRLA Neck: Supple Cardiovascular: Regular Rate, Normal S1, Normal S2, No Murmurs Lungs: Clear to Auscultation, Normal Air Movement Abdomen: Normal Bowel Sounds, Soft, non distended. Tender to palpation diffusely. Extremities: No Edema, Normal Pulses Assessment/Plan Assessment: 42 year old male with Crohn Disease diagnosed 7 years ago admitted with crohn flareup. He was started on hydrocortisone 100mg q8hr per GI recs on 04/26. His pain is being managed with PO opioid and not completely controlled at this time. #Crohns flareup -ABD XR other the weekend suggested mild small bowel obstruction-will follow GI recs for osmotic laxatives. If no BM and/or patient starts vomiting-will contact surgery and decompress. NPO with D51/2NS @125mL/hr for mild small bowel obstruction -IV steroids: 100mg IV q8hr Hydrocortisone-completed -Transitioned to Prednisone 60mg PO daily -QuantiFERON Gold-as outpatient -Miralax and simthicone for GI sx relief -pain control: tylenol; no narcotics as this slows GI motility and worsens the symptoms -benzodiazepine for sleep aid as high dose steroids -Xanax 1mg PO for anxiety -GI recs: Magnesium Citrate 300mg PO x1; if no BM after 6 hrs, then Lactulose q1hr until BM. monitor cbc, bep, CRP, oral antispasmodics PRN, remain off abx as not indicated. -Will follow up outpatient with primary GI: Dr. Maher #Social issues -[employer] insurance DVT prophylaxis: ambulation/ALPS Problem List: 1. Acute low back pain 2. Exacerbation of Crohn's disease Pain Ratin Pain Location: abdomen and low back Pain Goal: Pain 7 or less Pain Plan: see a/p Tomorrow's Labs & Rationales: none
--- NOTE | 2018-05-02 09:22 | Discharge Summary ---
See Addendum Visit Information Visit Dates Admission Date: 04/26/18 Discharge Date: 05/03/18 Hospital Course Course Attending Physician: Van Crawford MD Primary Care Physician: Patient Has No Primary Care Dr Hospital Course: Mr. Farley is a 42 year old male with PMH of Crohn Disease diagnosed 7 years ago admitted with crohn flareup on 04/25. He was admitted to the general medicine service for the following problem: Problem List: 1.Abdominal pain/constipation/blood per rectum 11/26 Crohn's flareup Admission Data: T98.9 P100 RR20 BP128/89 Sats 98%RA. Labs were unremarkable and within normal limits except CRP was elevated at 6.7 CT Abd/pelv: IMPRESSION: Circumferential wall thickening of the distal ileum with surrounding inflammatory stranding and a small amount free pelvic fluid. Overall, this does not appear significantly changed since 04/07/2018. No abscess. No definite obstruction. #Crohns flareup-patient was followed by GI while inpatient. He received IV steroids followed by PO steroids that will be tapered as an outpatient. Patient 's pain was difficult to manage during his hospital course. He was managed with non narcotic as well as narcotic medications and antispasmotics. He was started on Lexapro for anti-anxiety/depression as he required regular benzodiazepines during this hospital stay. His labs were followed and he was montiored for several days. ABD XR suggested mild small bowel obstruction-GI recs were followed for osmotic laxatives.He received osmotic laxatives and had return of bowel function that was non bloody. He will need further work up including QuantiFERON as an outpatient before starting back on Remicade. He will see Dr. Maher. He obtained [employer] insurance while he was inpatient and will be referred to Dr. Hernandez for establishment and follow up as PCP. On May 03, 2018 he was having BM (non bloody) and tolerating a diet. He was discharged home with the above mentioned follow up care. Allergies: Coded Allergies: No Known Allergies (04/07/18) Disposition Summary Disposition Principal Diagnosis: crohns flareup Additional Diagnosis: back pain Discharge Disposition: home or self care Discharge Instructions General Discharge Information Code Status: Full Code Patient's Diet: regular Patient's Activity: as tolerated Follow-Up Instructions/Appts: take all medications as prescribed follow up with PCP and GI as recommended Medications at Discharge Discharge Medications: Start taking the following new medications: Escitalopram Oxalate (Lexapro) 10 MG TABLET 10 Milligram ORAL DAILY Qty = 30 No Refills Instructions: . Comments: Last Taken:05/03/18 Time:8:58 AM Prednisone (Prednisone) 20 MG TABLET 60 Milligram ORAL DAILY Qty = 42 No Refills Instructions: . Comments: Last Taken:05/03/18 Time:8:58 AM Copies To: Mary HEMPHILL,Tristan Buitrago MD
[2018-05-02] MEDS ORDERED: LEXAPRO10 M1 PO (13:48)
[2018-05-02 14:57] VITALS: BP 124/72
[2018-05-02 22:13] VITALS: BP 114/80
[2018-05-03 06:32] VITALS: BP 120/80
--- NOTE | 2018-05-03 09:11 | PN- Housestaff ---
See Addendum Subjective Follow-up For: crohns flareup Complaints: pain scale (0-10), 10/10 pain abdomen Subjective: Patient reports continued 10/10 pain in his abdomen. He had 2-3 loose stools yesterday evening. He did not have anymore overnight. He states the pain gets worse at night. Denies fever, chills, n/v, chest pain, SOB. Review of Systems Constitutional: Reports: see HPI. Objective Last 24 Hrs of Vital Signs/I&O Vital Signs Date Time Temp Pulse Resp B/P B/P Pulse O2 O2 Flow FiO2 Mean Ox Delivery Rate 05/03 0632 98.3 66 20 120/80 98 Room Air 05/02 2213 97.9 60 17 114/80 97 Room Air 05/02 1457 98.1 66 18 124/72 98 Room Air Intake & Output 05/03 1600 05/03 0800 05/03 0000 Intake Total 480 Output Total Balance 480 Intake, Oral 480 Number 0 Bowel Movements Physical Exam General Appearance: Alert, Oriented X3, Cooperative, Mild Distress, sleeping when I walked in the room Skin: No Rashes Skin Temp/Moisture Exam: Warm/Dry HEENT: Atraumatic, PERRLA Neck: Supple Cardiovascular: Regular Rate, Normal S1, Normal S2, No Murmurs Lungs: Clear to Auscultation Abdomen: Normal Bowel Sounds, Soft, mild diffuse tenderness to palpation. Non distended Neurological: Normal Tone, Sensation Intact Extremities: No Edema, Normal Pulses Assessment/Plan Assessment: 42 year old male with Crohn Disease diagnosed 7 years ago admitted with crohn flareup. He was started on hydrocortisone 100mg q8hr per GI recs on 04/26. His pain is being managed with PO opioid and not completely controlled at this time. #Crohns flareup -ABD XR other the weekend suggested mild small bowel obstruction-GI recs for osmotic laxatives-resolved. -IV steroids: 100mg IV q8hr Hydrocortisone-completed -Transitioned to Prednisone 60mg PO daily; will need GI recs for steroid taper -QuantiFERON Gold-as outpatient -Miralax and simthicone for GI sx relief -pain control: tylenol; no narcotics as this slows GI motility and worsens the symptoms -Xanax 1mg PO for anxiety -GI recs: oral antispasmodics PRN, remain off abx as not indicated. Needs QuantiFERON before able to start Remicade -Will follow up outpatient with primary GI: Dr. Maher #Social issues including anxiety -Lexapro started for penitentiary tx of anxiety-will need outpatient follow up and adjustments as necessary -[employer] insurance DVT prophylaxis: ambulation/ALPS/lovenox Dispo: anticipate d/c home self care today with outpatient follow up with GI Dr. Maher. Problem List: 1. Crohn's disease 2. Exacerbation of Crohn's disease 3. Acute low back pain Pain Ratin Pain Location: abdomen back Pain Goal: Pain 7 or less Pain Plan: see a/p Tomorrow's Labs & Rationales: none
[2018-05-03] MEDS ORDERED: PREDNISONE20 M1 PO ×2 (11:41→11:45)
[2018-05-03] MEDS ORDERED: LEXAPRO10 M1 PO (11:45)
== END 2018-05-03 14:30 | DRG 245 ==
LOC: ERH 20:41 → ERHI 04-26 00:13 → 2NB 04-26 00:13 → ENRESERV 04-26 01:45 → 2NB 04-26 02:30 → ENTRNSPT 04-29 14:04 → EDTRNSPT 04-29 14:15 → EDTRNSPTSTS 04-29 14:15 → EDTRNSPT 04-29 14:25 → EDTRNSPTTYP 04-29 14:27 → EDTRNSPT 04-29 14:27 → 2NB 05-03 14:30
PROVIDERS: Emergency Medicine; Internal Medicine
DX: K50.00 Crohn's disease of small intestine without complications (principal); F17.210 Nicotine dependence, cigarettes, uncomplicated; K59.03 Drug induced constipation; Z60.8 Other problems related to social environment; M54.5 Low back pain; Z91.14 Patient's other noncompliance with medication regimen; F41.9 Anxiety disorder, unspecified
CPT/HCPCS: 2NBP; 36415; 74018; 74177; 81001; 82436; 93005; 93010; 96374; 96375; 96376; J0131; J1650; J1720; J2405; J7042; J7120

== ENCOUNTER 2018-05-11 19:42 | Emergency (ER) | payer OTHER ==
[~2018-05-11] VITALS: Ht 188 cm; Wt 83.9 kg
[~2018-05-11 19:42] MED LIST changes: +LEXAPRO10 M1 PO; +PREDNISONE20 M1 PO
--- NOTE | 2018-05-11 20:14 | ED GI/GU/ABDOMINAL COMPLAINT ---
History of Present Illness General Chief Complaint: General Adult Stated Complaint: DX CROHNS DISEASE, MULTIPLE COMPLIANTS Source: patient, old records Exam Limitations: no limitations Vital Signs & Intake/Output Vital Signs & Intake/Output Vital Signs Date Time Temp Pulse Resp B/P B/P Pulse O2 O2 Flow FiO2 Mean Ox Delivery Rate 05/11 2144 98.8 82 16 122/63 99 Room Air 05/11 1950 111 18 137/88 99 Room Air Allergies Coded Allergies: No Known Allergies (04/07/18) Reconcile Medications Escitalopram Oxalate (Lexapro) 10 MG TABLET 10 MG PO DAILY Depression . Ibuprofen (Advil) 200 MG CAPSULE 3 CAP PO PRN PAIN/INFLAMMATION (Reported) Ondansetron HCl (Zofran) 4 MG TABLET 1 TAB PO Q6-8P PRN NAUSEA Oxycodone HCl/Acetaminophen (Percocet 5-325 MG Tablet) 5 MG-325 MG TABLET 1 TAB PO BID PRN PAIN Prednisone 20 MG TABLET 60 MG PO DAILY STEROID . Triage Note: 28M C/O RLQ PAIN WITH WORSENING BM'S X4 DAYS INITIALLY WITH BRB AND NOW BLACK TARRY STOOL. ALSO C/O BACK PAIN. REPORTS FATIGUE, PALENESS, LETHARGIC. +NAUSEA W PAIN, DIAPHORETIC. DENIES CP/SOB. DENIES SYMPTOMS AT THIS TIME. ORTHOSTATIC CHANGES IN PULSE Triage Nurses Notes Reviewed? yes Duration: getting worse Timing: recent history Severity Numbers: 7 Location: generalized abdomen Radiation: no radiation HPI: Patient is a 28-year-old male with a past medical history of Crohn's disease in which she was admitted and discharged 8 days ago in which patient states that due to not having insurance she did not fill his prescriptions and Lexapro and prednisone advised upon his discharge. Patient states that he was doing well up to the past 2 days where he began having worsening abdominal discomfort and has had bright red blood and black tarry stools. Patient denies vomiting but does have nausea patient has associated symptoms last 24 hours of just weakness fatigue chills and tactile fevers. Patient is able tolerate by mouth patient has been taking ibuprofen for his pain Past History Travel History Traveled to [place] past 21 day No Medical History Any Pertinent Medical History? 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 No Review of Systems Review of Systems Constitutional: Reports: see HPI, weakness. EENTM: Reports: no symptoms. Respiratory: Reports: no symptoms. Cardiovascular: Reports: no symptoms. GI: Reports: see HPI, abdominal pain, bloody stool. Genitourinary: Reports: no symptoms. Musculoskeletal: Reports: no symptoms. Skin: Reports: no symptoms. Neurological/Psychological: Reports: no symptoms. Hematologic/Endocrine: Reports: see HPI, bleeding. Immunologic/Allergic: Reports: no symptoms. All Other Systems: Reviewed and Negative Physical Exam Physical Exam General Appearance: no apparent distress, alert, comfortable Head: atraumatic Eyes: Bilateral: normal appearance. Ears, Nose, Throat, Mouth: moist mucous membrane Respiratory: normal breath sounds, chest non-tender Cardiovascular: regular rate/rhythm Gastrointestinal: tenderness Rectal: normal inspection, heme positive stool Extremities: normal range of motion Neurologic/Psych: no motor/sensory deficits, awake, alert Skin: intact, normal color Core Measures ACS in differential dx? No Sepsis Present: No Sepsis Focused Exam Completed? No Progress Differential Diagnosis: AAA, AMI, appendicitis, biliary colic, bowel obstruction , colon cancer, cholecystitis, diverticulitis, epididymitis, esophageal varices, gastritis, hepatitis, hernia, hemorrhoids, ischemic bowel, inflamm bowel dis, pancreatitis, prostatitis, peptic ulcer, PUD/GERD, perforated viscous, pyelonephritis, SBO Plan of Care: Orders Procedure Date/time Status LIPASE 05/11 1956 Complete LACTIC ACID 05/11 1956 Complete COMPREHENSIVE METABOLIC PANEL 05/11 1956 Complete CBC WITHOUT DIFFERENTIAL 05/11 1956 Complete AMYLASE 05/11 1956 Complete EKG 05/11 1956 Active TYPE & SCREEN (NOT X-MATCH) 05/11 1956 Complete Laboratory Tests 05/11/18 2006: Anion Gap 13, Estimated GFR > 60, BUN/Creatinine Ratio 24.3, Glucose 109 H, Lactic Acid 0.7, Calcium 9.0, Total Bilirubin 0.3, AST 23, ALT 47, Alkaline Phosphatase 59, Total Protein 6.6, Albumin 3.8, Globulin 2.8, Albumin/Globulin Ratio 1.4, Amylase 47, Lipase 55, CBC w Diff NO MAN DIFF REQ, RBC 3.44 L, MCV 88.0, MCH 29.7, MCHC 33.8, RDW 12.9, MPV 7.6, Gran % 78.2 H, Lymphocytes % 10.7 L, Monocytes % 9.0, Eosinophils % 1.9, Basophils % 0.2, Absolute Granulocytes 13.6 H, Absolute Lymphocytes 1.9, Absolute Monocytes 1.6 H, Absolute Eosinophils 0.3, Absolute Basophils 0 Patient upon initial presentation is resting comfortably at bedside no active bleeding patient does have positive fecal occult blood test Discussed CT scan imaging and patient with Dr. GOODWIN who advised patient to begin prednisone and to follow up in office tomorrow. Patient has improvement of pain with morphine upon discharge patient looks well no apparent distress hemoglobin and hematocrit and blood pressure or unremarkable no signs of anemia no active bleeding Patient does state that is health insurance is now active as of today and will begin his medications patient was able to tolerate by mouth upon discharge Diagnostic Imaging: Viewed by Me: CT Scan. Radiology Impression: SEE COMMENTS Initial ED EKG: normal p-waves, normal QRS complex, normal sinus rhythm, 95 BPM, NSR Comments: PATIENT: ROSIE FRANKLIN PRESENT AGE: 28 PATIENT ACCOUNT NO: [id number] : 90 LOCATION: [facility] ORDERING PHYSICIAN: Amador TINAJERO SERVICE DATE: 05/11/18 EXAM TYPE: CAT - CT ABD & PELVIS W IV CONTRAST EXAMINATION: CT ABDOMEN AND PELVIS WITH CONTRAST CLINICAL INFORMATION: Crohn's disease. Abdominal pain. Bloody stool. COMPARISON: 04/25/2018. TECHNIQUE: Contiguous axial thin section helical images of the abdomen and pelvis were performed following the administration of 95 mL of intravenous Optiray 320. The data set was reformatted in the coronal and sagittal planes and reviewed on an independent workstation. DLP: 288 mGy-cm. FINDINGS: The visualized lung bases are clear. The visualized portions of the heart are unremarkable. The liver is of normal size and attenuation without focal lesions nor intrahepatic biliary ductal dilation. A normal gallbladder is identified. There is no wall thickening or discernible pericholecystic fluid. The spleen, pancreas, adrenal glands are unremarkable. Both kidneys are of normal size and attenuation without hydronephrosis or nephrolithiasis. Following the administration of IV contrast, prompt symmetric nephrograms are displayed. There is no abdominal free fluid. There is neither mesenteric nor retroperitoneal lymphadenopathy. There is wall thickening to several centimeters of distal small bowel. There is mild dilation to small bowel just proximal to the thickened loops of distal ileum. There is still present within the ileum at this level. There is also mild wall thickening to the cecum and ascending colon. There is adjacent mesenteric fat stranding. There are prominent vessels present within the mesentery. There are a few scattered nonpathologically enlarged mesenteric lymph nodes. Otherwise, unremarkable unopacified loops of small and large bowel are identified. There is a small amount of pelvic free fluid. The urinary bladder is unremarkable. There is neither pelvic nor inguinal lymphadenopathy. Bone windows: Neither sclerotic nor lytic bone lesions are identified. IMPRESSION: Wall thickening and adjacent mesenteric fat stranding to several loops of distal small bowel as well as the ascending colon indicative of inflammatory or infectious disease. There are no drainable fluid collections. Small amount of pelvic free fluid. DICTATED BY: Van Hogan MD DATE/TIME DICTATED:05/11/182158 SENIOR APPLICATIONS ANALYST:SPENSER Departure Departure Disposition: HOME OR SELF CARE Condition: Stable Clinical Impression Primary Impression: Crohn's colitis Referrals: Patient Has No Primary Care Dr (PCP/Family) Tristan Maher MD Additional Instructions: As discussed tomorrow please follow up with Dr. Maher, begin your previously prescribed prednisone as directed tomorrow as you have receive this medication in the ER today begin the prescription of Zofran for nausea and Percocet for pain. Prescription waiting at [facility]. If symptoms worsen return to emergency room Departure Forms: Customer Survey General Discharge Information Prescriptions: Current Visit Scripts Ondansetron HCl (Zofran) 1 TAB PO Q6-8P PRN NAUSEA #10 TAB Oxycodone HCl/Acetaminophen (Percocet 5-325 MG Tablet) 1 TAB PO BID PRN PAIN #8 TAB
[2018-05-11] MEDS ORDERED: ADVIL200 M1 PO (20:17)
[2018-05-11 20:19] LABS: ABSOLUTE BASOPHIL COUNT 0 /CUMM (0.0-0.2); ABSOLUTE EOSINOPHIL COUNT 0.3 /CUMM (0.0-0.7); ABSOLUTE GRANULOCYTE CT 13.6 /CUMM (1.4-6.5); ABSOLUTE LYMPH COUNT 1.9 /CUMM (1.2-3.4); ABSOLUTE MONOCYTE COUNT 1.6 /CUMM (0.10-0.60); BASOPHIL % 0.2 % (0.0-2.0); EOSINOPHIL % 1.9 % (0-5); HEMATOCRIT 30.3 % (42-52); MEAN CORPUSCULAR HGB 29.7 PG (27.0-31.0); MEAN CORPUSCULAR HGB CONC 33.8 G/DL (33.0-37.0); MEAN PLATELET VOLUME 7.6 FL (7.4-10.4); PLATELET COUNT 549 /CUMM (130-400); RBC DISTRIBUTION WIDTH 12.9 % (11.5-14.5); RED BLOOD CELL CT 3.44 /CUMM (4.70-6.10); WHITE BLOOD CELL COUNT 17.3 /CUMM (4.8-10.8)
[2018-05-11 20:50] LABS: GRANULOCYTE % 78.2 % (42.2-75.2)
--- NOTE | 2018-05-11 22:07 | CT SCAN REPORT ---
EXAMINATION: CT ABDOMEN AND PELVIS WITH CONTRAST CLINICAL INFORMATION: Crohn's disease. Abdominal pain. Bloody stool. COMPARISON: 04/25/2018. TECHNIQUE: Contiguous axial thin section helical images of the abdomen and pelvis were performed following the administration of 95 mL of intravenous Optiray 320. The data set was reformatted in the coronal and sagittal planes and reviewed on an independent workstation. DLP: 288 mGy-cm. FINDINGS: The visualized lung bases are clear. The visualized portions of the heart are unremarkable. The liver is of normal size and attenuation without focal lesions nor intrahepatic biliary ductal dilation. A normal gallbladder is identified. There is no wall thickening or discernible pericholecystic fluid. The spleen, pancreas, adrenal glands are unremarkable. Both kidneys are of normal size and attenuation without hydronephrosis or nephrolithiasis. Following the administration of IV contrast, prompt symmetric nephrograms are displayed. There is no abdominal free fluid. There is neither mesenteric nor retroperitoneal lymphadenopathy. There is wall thickening to several centimeters of distal small bowel. There is mild dilation to small bowel just proximal to the thickened loops of distal ileum. There is still present within the ileum at this level. There is also mild wall thickening to the cecum and ascending colon. There is adjacent mesenteric fat stranding. There are prominent vessels present within the mesentery. There are a few scattered nonpathologically enlarged mesenteric lymph nodes. Otherwise, unremarkable unopacified loops of small and large bowel are identified. There is a small amount of pelvic free fluid. The urinary bladder is unremarkable. There is neither pelvic nor inguinal lymphadenopathy. Bone windows: Neither sclerotic nor lytic bone lesions are identified. IMPRESSION: Wall thickening and adjacent mesenteric fat stranding to several loops of distal small bowel as well as the ascending colon indicative of inflammatory or infectious disease. There are no drainable fluid collections. Small amount of pelvic free fluid.
[2018-05-11] MEDS ORDERED: ZOFRAN4 M2 PO (22:48)
[2018-05-11] MEDS ORDERED: PERCOCET 5-3251 EACH PO (22:48)
[2018-05-11 23:04] VITALS: BP 127/87
== END 2018-05-11 23:04 ==
LOC: ERH 19:42
PROVIDERS: Emergency Medicine
DX: K50.90 Crohn's disease, unspecified, without complications (principal)
CPT/HCPCS: 74177; 93005; 93010; 96361; 96374; 96375; J0131; J2405

== ENCOUNTER 2018-06-21 17:28 | Emergency (ER) | payer OTHER ==
[~2018-06-21] VITALS: Ht 188 cm; Wt 81.6 kg
[~2018-06-21 17:28] MED LIST changes: +ADVIL200 M1 PO; +PERCOCET 5-3251 EACH PO; +ZOFRAN4 M2 PO
[2018-06-21 17:58] LABS: ABSOLUTE BASOPHIL COUNT 0.1 /CUMM (0.0-0.2); ABSOLUTE EOSINOPHIL COUNT 0.4 /CUMM (0.0-0.7); ABSOLUTE GRANULOCYTE CT 11.1 /CUMM (1.4-6.5); ABSOLUTE LYMPH COUNT 2.3 /CUMM (1.2-3.4); ABSOLUTE MONOCYTE COUNT 1.2 /CUMM (0.10-0.60); BASOPHIL % 0.5 % (0.0-2.0); EOSINOPHIL % 2.8 % (0-5); GRANULOCYTE % 73.3 % (42.2-75.2); HEMATOCRIT 32.3 % (42-52); MEAN CORPUSCULAR HGB 26.7 PG (27.0-31.0); MEAN CORPUSCULAR VOLUME 83.4 FL (80.0-94.0); MEAN PLATELET VOLUME 7.5 FL (7.4-10.4); PLATELET COUNT 616 /CUMM (130-400); RBC DISTRIBUTION WIDTH 14.8 % (11.5-14.5); RED BLOOD CELL CT 3.88 /CUMM (4.70-6.10); WHITE BLOOD CELL COUNT 15.1 /CUMM (4.8-10.8)
--- NOTE | 2018-06-21 19:49 | ED GI/GU/ABDOMINAL COMPLAINT ---
History of Present Illness General Chief Complaint: Abdominal Pain/Flank Pain Stated Complaint: ABD PAIN H/O CHRONS Source: patient, old records Exam Limitations: no limitations Vital Signs & Intake/Output Vital Signs & Intake/Output Vital Signs Date Time Temp Pulse Resp B/P B/P Pulse O2 O2 Flow FiO2 Mean Ox Delivery Rate 06/21 2052 98.7 66 16 116/80 99 Room Air 06/21 1732 98.1 93 16 134/90 98 Room Air Allergies Coded Allergies: No Known Allergies (04/07/18) Reconcile Medications Escitalopram Oxalate (Lexapro) 10 MG TABLET 10 MG PO DAILY Depression . Ibuprofen (Advil) 200 MG CAPSULE 3 CAP PO PRN PAIN/INFLAMMATION (Reported) Ondansetron HCl (Zofran) 4 MG TABLET 1 TAB PO Q6-8P PRN NAUSEA Oxycodone HCl/Acetaminophen (Percocet 5-325 MG Tablet) 5 MG-325 MG TABLET 1 TAB PO BID PRN PAIN Prednisone 20 MG TABLET 60 MG PO DAILY STEROID . Triage Note: PT STATES HE HAS CHRONES DISEASE AND HAS HAD BAD PAINS AT NIGHT FOR THE PAST 3 NIGHTS. PT HAVING LOOSE STOOL NO BLOOD IN IT. PT STATES HE IS HAVING PRESSURE AND BLOATING IN HIS LOWER ABD. Triage Nurses Notes Reviewed? yes HPI: Patient presents with gradually worsening abdominal pain. The pain is in the right upper and right lower quadrant. Patient has history of Crohn's and has had similar symptoms in the past when he has had a flare from his Crohn's. The pain is constant. Patient states he chronically has a little pain but over the past 3-4 days. His been steadily increasing to now being 10 out of 10. Patient denies any nausea or vomiting. He states that he has loose bowels which is normal for him. Patient missed his last gastroenterology appointment and he has one Wednesday. He denies any fevers or chills. There are no aggravating or mitigating factors to the pain. There is no radiation outside of the right upper and right lower quadrant. Past History Travel History Traveled to [place] past 21 day No Medical History Any Pertinent Medical History? 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 No Review of Systems Review of Systems Constitutional: Reports: no symptoms. EENTM: Reports: no symptoms. Respiratory: Reports: no symptoms. Cardiovascular: Reports: no symptoms. GI: Reports: see HPI, abdominal pain. Genitourinary: Reports: no symptoms. Musculoskeletal: Reports: no symptoms. Skin: Reports: no symptoms. Neurological/Psychological: Reports: no symptoms. Hematologic/Endocrine: Reports: no symptoms. Immunologic/Allergic: Reports: no symptoms. All Other Systems: Reviewed and Negative Physical Exam Physical Exam General Appearance: well developed/nourished, alert, awake, mild distress Head: atraumatic, normal appearance Eyes: Bilateral: PERRL, EOMI. Ears, Nose, Throat, Mouth: hearing grossly normal, moist mucous membrane Neck: normal inspection, supple, full range of motion Respiratory: normal breath sounds, chest non-tender, no respiratory distress, lungs clear Cardiovascular: regular rate/rhythm, normal peripheral pulses Gastrointestinal: normal bowel sounds, soft, no organomegaly, tenderness Back: normal inspection, normal range of motion Extremities: normal range of motion Neurologic/Psych: no motor/sensory deficits, awake, alert, oriented x 3, normal gait, normal mood/affect Skin: intact, normal color, warm/dry Core Measures ACS in differential dx? No Sepsis Present: No Sepsis Focused Exam Completed? No Progress Differential Diagnosis: SBO, CROHN'S FLAIR Plan of Care: Orders Procedure Date/time Status LACTIC ACID 06/21 2038 Active URINALYSIS 06/21 1738 Complete LIPASE 06/21 1738 Complete LACTIC ACID 06/21 1738 Complete COMPREHENSIVE METABOLIC PANEL 06/21 1738 Complete CBC WITHOUT DIFFERENTIAL 06/21 1738 Complete Laboratory Tests 06/21/18 1755: Urine Color YEL, Urine Clarity CLEAR, Urine pH 6.0, Ur Specific [place] >= 1.030 , Urine Protein TRACE H, Urine Ketones TRACE H, Urine Nitrite NEG, Urine Bilirubin NEG, Urine Urobilinogen 0.2, Ur Leukocyte Esterase NEG, Ur Microscopic SEDIMENT EXAMINED, Urine RBC RARE, Urine WBC 1-3 H, Ur Epithelial Cells RARE, Urine Crystals 3+ [place] H, Urine Bacteria RARE H, Urine Mucus MANY H, Urine Hemoglobin NEG, Urine Glucose NEG 06/21/18 1750: Anion Gap 11, Estimated GFR > 60, BUN/Creatinine Ratio 17.5, Glucose 92, Lactic Acid 0.6 L, Calcium 9.5, Total Bilirubin 0.3, AST 18, ALT 31, Alkaline Phosphatase 78, Total Protein 6.8, Albumin 3.9, Globulin 2.9, Albumin/Globulin Ratio 1.3, Lipase 60, CBC w Diff NO MAN DIFF REQ, RBC 3.88 L, MCV 83.4, MCH 26.7 L, MCHC 32.0 L, RDW 14.8 H, MPV 7.5, Gran % 73.3, Lymphocytes % 15.2 L, Monocytes % 8.2, Eosinophils % 2.8, Basophils % 0.5, Absolute Granulocytes 11.1 H, Absolute Lymphocytes 2.3, Absolute Monocytes 1.2 H, Absolute Eosinophils 0.4 , Absolute Basophils 0.1 Diagnostic Imaging: Viewed by Me: Radiology Read. Discussed w/RAD: Radiology Read. Radiology Impression: PATIENT: ROSIE FRANKLIN PRESENT AGE: 28 PATIENT ACCOUNT NO: [id number] : 90 LOCATION: [facility] ORDERING PHYSICIAN: Dominguez Foley MD SERVICE DATE: 06/21/18 EXAM TYPE: RAD - XRY-ABD MULTI VIEW W/PA CHEST EXAMINATION: XR ABDOMEN WITH PA CHEST CLINICAL INDICATION: Crohn's disease. Abdominal pain. Concern for bowel obstruction. COMPARISON: None TECHNIQUE: Single view chest. Supine abdomen. FINDINGS: The chest is normal. Lungs are clear. Cardiac and mediastinal contours are normal. There is no pleural effusion and there is no pneumothorax. No acute change of the abdomen. Small volume of scattered stool in the colon. No abnormally dilated bowel loop. Nonobstructive bowel pattern. No intra-abdominal calcification. IMPRESSION: Unremarkable examination. DICTATED BY: Franky Young MD DATE/TIME DICTATED:06/21/182030 DRY MIXER:SPENSER DATE/TIME TRANSCRIBED:2030 CONFIDENTIAL, DO NOT COPY WITHOUT APPROPRIATE AUTHORIZATION. < Electronically signed in Other Vendor System> SIGNED BY: Franky Young MD 2035 Initial ED EKG: none Departure Departure Disposition: HOME OR SELF CARE Condition: Stable Clinical Impression Primary Impression: Crohns disease Referrals: Gunnar HEMPHILL,Tristan Collier (PCP/Family) Additional Instructions: Follow with Dr. Maher. Return if symptoms worsen or for any concerns. Departure Forms: Customer Survey General Discharge Information Prescriptions: Current Visit Scripts Dicyclomine HCl 1 CAP PO TID PRN ABD PAIN #30 CAP Oxycodone HCl/Acetaminophen (Percocet 5-325 MG Tablet) 1-2 TAB PO Q6P PRN PAIN #12 TAB
--- NOTE | 2018-06-21 20:36 | RADIOLOGY REPORT ---
EXAMINATION: XR ABDOMEN WITH PA CHEST CLINICAL INDICATION: Crohn's disease. Abdominal pain. Concern for bowel obstruction. COMPARISON: None TECHNIQUE: Single view chest. Supine abdomen. FINDINGS: The chest is normal. Lungs are clear. Cardiac and mediastinal contours are normal. There is no pleural effusion and there is no pneumothorax. No acute change of the abdomen. Small volume of scattered stool in the colon. No abnormally dilated bowel loop. Nonobstructive bowel pattern. No intra-abdominal calcification. IMPRESSION: Unremarkable examination.
[2018-06-21 20:52] VITALS: BP 116/80
[2018-06-21] MEDS ORDERED: PERCOCET 5-3251 EACH PO (21:51)
[2018-06-21] MEDS ORDERED: DICYCLOMINE HCL10 M1 PO (21:51)
== END 2018-06-21 22:00 ==
LOC: ERH 17:28
PROVIDERS: Physician Assistant Medical
DX: K50.90 Crohn's disease, unspecified, without complications (principal); R10.11 Right upper quadrant pain; R10.31 Right lower quadrant pain; F17.210 Nicotine dependence, cigarettes, uncomplicated; Z79.52 Long term (current) use of systemic steroids
CPT/HCPCS: 74022; 81001; 90714; 96361; 96374; 96375; J0131; J2405

== ENCOUNTER 2018-07-03 17:02 | Inpatient (IN) | payer OTHER ==
[~2018-07-03] VITALS: Ht 188 cm; Wt 77.1 kg
[~2018-07-03 17:02] MED LIST changes: +DICYCLOMINE HCL10 M1 PO
[2018-07-03 17:45] LABS: ABSOLUTE BASOPHIL COUNT 0.1 /CUMM (0.0-0.2); ABSOLUTE EOSINOPHIL COUNT 0.4 /CUMM (0.0-0.7); ABSOLUTE GRANULOCYTE CT 14.3 /CUMM (1.4-6.5); ABSOLUTE MONOCYTE COUNT 1.3 /CUMM (0.10-0.60); BASOPHIL % 0.5 % (0.0-2.0); EOSINOPHIL % 2.2 % (0-5); GRANULOCYTE % 79.1 % (42.2-75.2); HEMATOCRIT 34.4 % (42-52); MEAN CORPUSCULAR HGB 26.3 PG (27.0-31.0); MEAN CORPUSCULAR HGB CONC 32.4 G/DL (33.0-37.0); MEAN CORPUSCULAR VOLUME 81.2 FL (80.0-94.0); MEAN PLATELET VOLUME 7.9 FL (7.4-10.4); PLATELET COUNT 594 /CUMM (130-400); RBC DISTRIBUTION WIDTH 15.3 % (11.5-14.5); RED BLOOD CELL CT 4.24 /CUMM (4.70-6.10); WHITE BLOOD CELL COUNT 18.1 /CUMM (4.8-10.8)
--- NOTE | 2018-07-03 18:10 | ED GI/GU/ABDOMINAL COMPLAINT ---
History of Present Illness General Chief Complaint: General Adult Stated Complaint: "BAD CRONES FLARE UP AND GROIN PAIN" PER PT Source: patient, old records Exam Limitations: no limitations Vital Signs & Intake/Output Vital Signs & Intake/Output Vital Signs Date Time Temp Pulse Resp B/P B/P Pulse O2 O2 Flow FiO2 Mean Ox Delivery Rate 07/03 1951 97.6 94 18 131/86 99 Room Air 07/03 1706 97.3 130 18 126/84 99 Room Air Room Air Allergies Coded Allergies: No Known Allergies (04/07/18) Reconcile Medications Escitalopram Oxalate (Lexapro) 10 MG TABLET 10 MG PO DAILY Depression . Triage Note: TRIAGE: 28 Y/O MALE PRESENTS C/O CROHNS FLARE UP WELL BILATERAL GROIN PAIN. Triage Nurses Notes Reviewed? yes Onset: Last week Duration: day(s):, constant, continues in ED Timing: recent history Quality/Severity: sharpness, severe Location: left lower quadrant, right lower quadrant, scrotal Radiation: no radiation, back, groin Activities at Onset: rest Prior Abdominal Problems: similar symptoms Past Sexual History: Unobtainable at this time Modifying Factors: Worsens With: movement, palpation. Associated Symptoms: abdominal pain, loss of appetite HPI: Several days prior to admission patient complains of increasing bilateral lower quadrant pain belt-like severe constant radiating to the groin associated with decreased appetite constipation then diarrhea today similar to Crohn's discomfort. He also complains of left suprapubic mass that is tender with tender adenopathy a lesion midline scrotal perineal junction. He denies fever chills nausea vomiting chest pain cough shortness of breath headache dysuria rash bleeding testicular tenderness. (Shiva Stokes MD) Past History Travel History Traveled to [place] past 21 day No Medical History Any Pertinent Medical History? see below for history Neurological: NONE EENT: NONE Cardiovascular: NONE Respiratory: NONE Gastrointestinal: Crohn's disease Hepatic: NONE Renal: NONE Musculoskeletal: NONE Psychiatric: NONE Endocrine: NONE Blood Disorders: NONE Cancer(s): NONE ARMATURE CONNECTOR/Reproductive: NONE History of MRSA: No History of VRE: No History of CDIFF: No Surgical History Surgical History: non-contributory Psychosocial History Who do you live with Family Services at Home None What is your primary language Japanese Tobacco Use: Current Daily Use Daily Tobacco Use Amount/Type: =< 4 Cigarettes daily ETOH Use: denies use Illicit Drug Use: denies illicit drug use Family History Hx Contributory? No (Shiva Stokes MD) Review of Systems Review of Systems Constitutional: Reports: see HPI, chills, malaise. EENTM: Reports: no symptoms. Respiratory: Reports: no symptoms. Cardiovascular: Reports: no symptoms. GI: Reports: see HPI, abdominal pain, changes in stool. Genitourinary: Reports: see HPI, pain. Musculoskeletal: Reports: no symptoms. Skin: Reports: no symptoms. Neurological/Psychological: Reports: no symptoms. Hematologic/Endocrine: Reports: no symptoms. Immunologic/Allergic: Reports: no symptoms. All Other Systems: Reviewed and Negative (Shiva Stokes MD) Physical Exam Physical Exam General Appearance: well developed/nourished, alert, awake, anxious, moderate distress, thin Head: atraumatic, normal appearance Eyes: Bilateral: normal appearance, PERRL, EOMI, normal inspection. Ears, Nose, Throat, Mouth: hearing grossly normal, moist mucous membrane Neck: normal inspection, supple, full range of motion, normal alignment Respiratory: normal breath sounds, chest non-tender, no respiratory distress, quiet respiration, lungs clear Cardiovascular: regular rate/rhythm, normal peripheral pulses, norml femoral pulses equa Peripheral Pulses: 4+ carotid (R), 4+ carotid (L) Gastrointestinal: normal bowel sounds, soft, guarding, tenderness, hernia (Left inguinal?), left inguinal adenopathy Male Genitals: normal genitalia, normal cremaster reflex, large papule located beneath scrotum at perineal junction midline Back: normal inspection, normal range of motion Extremities: normal range of motion, no ligament instability Neurologic/Psych: no motor/sensory deficits, awake, alert, oriented x 3, normal gait, normal mood/affect, traffic recorder II-XII nml as tested Skin: intact, normal color, warm/dry Core Measures ACS in differential dx? No Sepsis Present: No Sepsis Focused Exam Completed? No (Shiva Stokes MD) Progress Differential Diagnosis: bowel obstruction, gastritis, hernia, inflamm bowel dis, pancreatitis, SBO Plan of Care: Orders Procedure Date/time Status Clear Liquid Diet 07/04 B Active Saline Lock 07/03 2022 Active Misc Message 07/03 2022 Active ED Holding Orders 07/03 2022 Active Admit to inpatient 07/03 2022 Active Vital Signs 07/03 2022 Active Code Status 07/03 2022 Active CULTURE,STOOL 07/03 1953 Active C.DIFFICILE 07/03 1953 Active C-REACTIVE PROTEIN 07/03 1737 Complete URINALYSIS 07/03 1731 Complete LIPASE 07/03 1731 Complete HIGH SENSITIVITY CRP 07/03 1731 Complete WESTERGREN SED RATE 07/03 173 Complete COMPREHENSIVE METABOLIC PANEL 07/03 1731 Complete CBC WITHOUT DIFFERENTIAL 07/03 1731 Complete Current Medications Sig/Robert Start time Last Medication Dose Stop Time Status Admin Hydrocortisone 100 MG Q8 07/03 2200 UNVr Sodium Succinate (Solucortef) Laboratory Tests 07/03/181736: Anion Gap 12, Estimated GFR > 60, BUN/Creatinine Ratio 17.5, Glucose 121 H, Calcium 9.7, Total Bilirubin 0.2, AST 37, ALT 58, Alkaline Phosphatase 82, C- Reactive Prot, Quant 7.3 H, C-React Prot High Sens > 15.0 H, Total Protein 7.3 , Albumin 4.3, Globulin 3.0, Albumin/Globulin Ratio 1.4, Lipase 53, CBC w Diff MAN DIFF ORDERED, RBC 4.24 L, MCV 81.2, MCH 26.3 L, MCHC 32.4 L, RDW 15.3 H, MPV 7.9, Gran % 79.1 H, Lymphocytes % 10.8 L, Monocytes % 7.4, Eosinophils % 2.2, Basophils % 0.5, Absolute Granulocytes 14.3 H, Segmented Neutrophils 70, Band Neutrophils 4, Absolute Lymphocytes 2.0, Lymphocytes 16 L, Monocytes 7, Absolute Monocytes 1.3 H, Eosinophils 2, Absolute Eosinophils 0.4, Basophils 1, Absolute Basophils 0.1, Platelet Estimate INCREASED, Polychromasia 1+, Hypochromic-Microcytic 2+, ESR Westergren 58 H, Urinalysis LIGHT H, Urine Color YEL, Urine Clarity CLEAR, Urine pH 6.0, Ur Specific [place] 1.025, Urine Protein TRACE H, Urine Ketones TRACE H, Urine Nitrite NEG, Urine Bilirubin NEG , Urine Urobilinogen 0.2, Ur Leukocyte Esterase NEG, Ur Microscopic SEDIMENT EXAMINED, Urine WBC RARE, Ur Epithelial Cells RARE, Urine Bacteria RARE H, Urine Mucus MANY H, Urine Hemoglobin NEG, Urine Glucose NEG Microbiology 07/03 1953 STOOL: Clostridium difficile Toxin A & B - ORD 07/03 1953 STOOL: Stool Culture - ORD Initial ED EKG: none Hand-Off Endorsed To: Ruma HEMPHILL,Jose Colmenares Endorsed Time: 1899 Pending: CT, labs (Divya HEMPHILL,Shiva) Diagnostic Imaging: Viewed by Me: CT Scan. Discussed w/RAD: CT Scan. Radiology Impression: PATIENT: ROSIE FRANKLIN PRESENT AGE: 28 PATIENT ACCOUNT NO: [id number] : 90 LOCATION: [facility] ORDERING PHYSICIAN: Shiva Stokes MD SERVICE DATE: 07/03/18 EXAM TYPE: CAT - CT ABD & PELVIS W IV CONTRAST EXAMINATION: CT ABDOMEN AND PELVIS WITH CONTRAST CLINICAL INFORMATION: Crohn's disease, abdominal pain. COMPARISON: 05/11/2018 and 04/25/2018 CT scans. TECHNIQUE: Multidetector volumetric imaging was performed of the abdomen and pelvis following IV administration of 95 mL of Optiray 320 intravenous contrast. Sagittal and coronal reformatted images were obtained on the technologist's workstation. DLP: 294.40 mGy-cm FINDINGS: LUNG BASES: The visualized lung bases are unremarkable. LIVER, GALLBLADDER, AND BILIARY TREE: The liver is enlarged, measures about 23 cm in maximum CC dimension. The hepatic parenchymal density is within normal limits. No focal hepatic lesion or biliary ductal dilatation is present. The gallbladder is partially distended. There is no evidence of radiopaque gallstones, gallbladder wall thickening, or obvious pericholecystic inflammatory changes. PANCREAS: Unremarkable. SPLEEN: Unremarkable. ADRENAL GLANDS: Unremarkable. KIDNEYS AND URETERS: The kidneys are normal in size, shape, and attenuation. No hydronephrosis, hydroureter, or calculi seen. No perinephric stranding. BLADDER: The urinary bladder is empty. GASTROINTESTINAL TRACT: The stomach is unremarkable. The duodenum is decompressed. The small bowel loops are fluid- filled and not dilated. The loops of colon are not dilated. There is mild wall thickening and submucosal edema involving the rectum and distal sigmoid colon. The finding is better seen on coronal image 64, sagittal image 58 and axial image 69. This finding is more prominent than 05/11/2018 exam. There is also submucosal edema and mild thickening of the wall of the cecum, ascending colon as well as the distal ileum. The single layer thickness of the wall of the distal ileum is about 8 mm, better seen on axial image 78 from series 2. This finding is similar to 05/11/2018 exam. There is [id number] mesenteric stranding in the lower abdomen and pelvis as well as the right upper quadrant of the abdomen. There is no free fluid in the abdomen or pelvis. No free intra- abdominal air. ABDOMINAL WALL: No significant hernia is appreciated. LYMPH NODES : No significant adenopathy. Mildly enlarged mesenteric lymph nodes are present. VASCULAR: There are prominent vessels in the right side of the abdomen, the nature of them is not clear. PELVIC VISCERA: The prostate and seminal vesicles are unremarkable. OSSEOUS STRUCTURES: No aggressive bony lesions. The SI joints are unremarkable. IMPRESSION: 1. Submucosal edema and wall thickening of the rectum and distal sigmoid colon, can represent proctitis. 2. Submucosal edema and wall thickening of the distal ileum and cecum with adjacent mesenteric stranding can represent changes of Crohn's disease. 3. Hepatomegaly. DICTATED BY : Jasson Esteban MD DATE/TIME DICTATED:07/03/181842 AMBULANCE MECHANIC: SPENSER DATE/TIME TRANSCRIBED:07/03/181842 CONFIDENTIAL, DO NOT COPY WITHOUT APPROPRIATE AUTHORIZATION. <Electronically signed in Other Vendor System> SIGNED BY: Jasson Esteban MD 07/03/181926 (Jose Hendrix MD) Departure Departure Disposition: STILL A PATIENT Condition: Stable Clinical Impression Primary Impression: Exacerbation of Crohn's disease Secondary Impressions: Leukocytosis Referrals: Unknown (PCP/Family) Departure Forms: Customer Survey General Discharge Information (Shiva Stokes MD) Departure Comments 07/03/18, 7:53PM... discussed with dr. dobson, pt merits iv steroids... hydrocortisone 100mg q8... merits admission Admission Note Spoke With: Elliott HEMPHILL,Keo Documentation of Exam: Documentation of any treatments & extenuating circumstances including Concerns Regarding Discharge (functional status, medication knowledge or non-compliance, living conditions, etc.) that warrant an admission rather than observation: pt with chron's flare with significant involvement in 2 locations. pt merits iv steroids, abx, iv fluids. stool cx and c.diff ordered. GI to see in AM. (Ruma HEMPHILL,Jose Colmenares)
--- NOTE | 2018-07-03 19:27 | CT SCAN REPORT ---
EXAMINATION: CT ABDOMEN AND PELVIS WITH CONTRAST CLINICAL INFORMATION: Crohn's disease, abdominal pain. COMPARISON: 05/11/2018 and 04/25/2018 CT scans. TECHNIQUE: Multidetector volumetric imaging was performed of the abdomen and pelvis following IV administration of 95 mL of Optiray 320 intravenous contrast. Sagittal and coronal reformatted images were obtained on the technologist's workstation. DLP: 294.40 mGy-cm FINDINGS: LUNG BASES: The visualized lung bases are unremarkable. LIVER, GALLBLADDER, AND BILIARY TREE: The liver is enlarged, measures about 23 cm in maximum CC dimension. The hepatic parenchymal density is within normal limits. No focal hepatic lesion or biliary ductal dilatation is present. The gallbladder is partially distended. There is no evidence of radiopaque gallstones, gallbladder wall thickening, or obvious pericholecystic inflammatory changes. PANCREAS: Unremarkable. SPLEEN: Unremarkable. ADRENAL GLANDS: Unremarkable. KIDNEYS AND URETERS: The kidneys are normal in size, shape, and attenuation. No hydronephrosis, hydroureter, or calculi seen. No perinephric stranding. BLADDER: The urinary bladder is empty. GASTROINTESTINAL TRACT: The stomach is unremarkable. The duodenum is decompressed. The small bowel loops are fluid-filled and not dilated. The loops of colon are not dilated. There is mild wall thickening and submucosal edema involving the rectum and distal sigmoid colon. The finding is better seen on coronal image 64, sagittal image 58 and axial image 69. This finding is more prominent than 05/11/2018 exam. There is also submucosal edema and mild thickening of the wall of the cecum, ascending colon as well as the distal ileum. The single layer thickness of the wall of the distal ileum is about 8 mm, better seen on axial image 78 from series 2. This finding is similar to 05/11/2018 exam. There is [id number] mesenteric stranding in the lower abdomen and pelvis as well as the right upper quadrant of the abdomen. There is no free fluid in the abdomen or pelvis. No free intra-abdominal air. ABDOMINAL WALL: No significant hernia is appreciated. LYMPH NODES: No significant adenopathy. Mildly enlarged mesenteric lymph nodes are present. VASCULAR: There are prominent vessels in the right side of the abdomen, the nature of them is not clear. PELVIC VISCERA: The prostate and seminal vesicles are unremarkable. OSSEOUS STRUCTURES: No aggressive bony lesions. The SI joints are unremarkable. IMPRESSION: 1. Submucosal edema and wall thickening of the rectum and distal sigmoid colon, can represent proctitis. 2. Submucosal edema and wall thickening of the distal ileum and cecum with adjacent mesenteric stranding can represent changes of Crohn's disease. 3. Hepatomegaly.
--- NOTE | 2018-07-03 20:38 | History & Physical ---
Fidel Ramirez 07/03/182036: General Information and HPI MD Statement: I have seen and personally examined ROSIE FRANKLIN and documented this H&P. The patient is a 28 year old M who presented with chief complaint of chron's flare. Source of Information: patient Exam Limitations: no limitations History of Present Illness: Patient is a 28 yo M with a PMH of Crohn's disease diagnosed about 7 years ago. His Crohn's has been in mostly remission while on Remicade however, his last dose of Remicade was in November 2017, as he could not continue due to insurance reasons causing him to miss his Nathalie dose. In April 2018, his Crohn's flares reappeared and presented as lower right quadrant pain, extending throughout his abdominal region and groin. At this time he also began experiencing bloody and loose stools with bowel movements ranging from once in every 4-7 days. The prednisone taper helped for about a week but patient claims his symptoms returned shortly thereafter. He now presents with several days of increasing BL lower quadrant again extending throughout his abdominal region and radiating to the groin. It is associated with constipation, decreased appetite, and fatigue. He denies headache, nasuea, dysuria, or flu-like symptoms. Allergies/Medications Allergies: Coded Allergies: No Known Allergies (04/07/18) Home Med list Escitalopram Oxalate (Lexapro) 10 MG TABLET 10 MG PO DAILY Depression . 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 His father suffers from gastric ulcers and one of his 5 brothers has GI issues, but has not been diagnosed with anything.). Relation not specified for: *No pertinent family history Psychosocial History Services at Home: None ETOH Use: denies use Illicit Drug Use: denies illicit drug use Sexual History Past Sexual History Unobtainable at this time Review of Systems Review of Systems Constitutional: Reports: see HPI. Exam & Diagnostic Data Last 24 Hrs of Vital Signs/I&O Vital Signs Date Time Temp Pulse Resp B/P B/P Pulse O2 O2 Flow FiO2 Mean Ox Delivery Rate 07/03 1951 97.6 94 18 131/86 99 Room Air 07/03 1706 97.3 130 18 126/84 99 Room Air Room Air Physical Exam General Appearance Alert, Oriented X3, Cooperative, Mild Distress Skin No Rashes Skin Temp/Moisture Exam: Warm/Dry Sepsis Skin Exam (color): Normal for Ethnicity HEENT Atraumatic, EOMI Neck Supple Cardiovascular Normal S1, Normal S2 Lungs Clear to Auscultation, Normal Air Movement Abdomen Soft, Left lower quadrant tenderness Extremities No Cyanosis, No Tenderness/Swelling Last 24 Hrs of Labs/Mark: Laboratory Tests 07/03/18 1737: Anion Gap 12, Estimated GFR > 60, BUN/Creatinine Ratio 17.5, Glucose 121 H, Calcium 9.7, Total Bilirubin 0.2, AST 37, ALT 58, Alkaline Phosphatase 82, C- Reactive Prot, Quant 7.3 H, C-React Prot High Sens > 15.0 H, Total Protein 7.3 , Albumin 4.3, Globulin 3.0, Albumin/Globulin Ratio 1.4, Lipase 53, CBC w Diff MAN DIFF ORDERED, RBC 4.24 L, MCV 81.2, MCH 26.3 L, MCHC 32.4 L, RDW 15.3 H, MPV 7.9, Gran % 79.1 H, Lymphocytes % 10.8 L, Monocytes % 7.4, Eosinophils % 2.2, Basophils % 0.5, Absolute Granulocytes 14.3 H, Segmented Neutrophils 70, Band Neutrophils 4, Absolute Lymphocytes 2.0, Lymphocytes 16 L, Monocytes 7, Absolute Monocytes 1.3 H, Eosinophils 2, Absolute Eosinophils 0.4, Basophils 1, Absolute Basophils 0.1, Platelet Estimate INCREASED, Polychromasia 1+, Hypochromic-Microcytic 2+, ESR Westergren 58 H, Urinalysis LIGHT H, Urine Color YEL, Urine Clarity CLEAR, Urine pH 6.0, Ur Specific [place] 1.025, Urine Protein TRACE H, Urine Ketones TRACE H, Urine Nitrite NEG, Urine Bilirubin NEG , Urine Urobilinogen 0.2, Ur Leukocyte Esterase NEG, Ur Microscopic SEDIMENT EXAMINED, Urine WBC RARE, Ur Epithelial Cells RARE, Urine Bacteria RARE H, Urine Mucus MANY H, Urine Hemoglobin NEG, Urine Glucose NEG Microbiology 07/03 1953 STOOL: Clostridium difficile Toxin A & B - ORD 07/03 1953 STOOL: Stool Culture - ORD Assessment/Plan Assessment: Patient is a 28 yo M with a PMH significant for Crohns, non-compliant with his infliximab (Remicade) biologic therapy since January (5 months ago) due to insurance issues. He now experiences an increased frequency of flares. He has successfully obtained insurance that can cover him now and therefore should undergo pre-screening DONTAE for biologic therapy (Quanti-feron Gold, as live vaccines UTD according to patient) and re-initiate biologic therapy [id number] as the regimen was very successful for him without any anti-metabolite or 5ASA therapy. Vital Signs: 97.3, 130, 18, 126/84, 99% RA WBC 18.1, H/H 11.1/34.4, PLT 594 ESR [address] abd 07/03/18 1. Submucosal edema and wall thickening of the rectum and distal sigmoid colon, can represent proctitis. 2. Submucosal edema and wall thickening of the distal ileum and cecum with adjacent mesenteric stranding can represent changes of Crohn's disease. 3. Hepatomegaly. #Chron's Flare up #Anxiety - Admit patient to gen med - Stool C diff studies last time were negative - Start pt on solumedrol 40mg and taper - Start Flagyl and Cipro - Gentle IV hydration D5 NS at 100ml - Pain: Tylenol PO/IV, Morphine 2mg Q4 prn - GI consult - Continue Lexapro DVT ppx Full Code Diet: Clear Liquid As Ranked By This Provider Problem List: 1. Exacerbation of Crohn's disease Core Measures/Misc (07/11) Acute Coronary Syndrome ACS Diagnosis: No Congestive Heart Failure Congestive Heart Failure Diagnosis No Cerebrovascular Accident CVA/TIA Diagnosis: No VTE (View Protocol) VTE Risk Factors No risk factors No Mechanical VTE Prophylaxis d/t N/A MechProphylax Ordered No VTE Pharm Prophylaxis d/t NA PharmProphylax ordered Sepsis (View protocol) Sepsis Present: No If YES complete Sepsis Event Note If YES complete Sepsis Event Note Marivel Vuong 07/03/182045: Core Measures/Misc (07/11) Sepsis (View protocol) If YES complete Sepsis Event Note If YES complete Sepsis Event Note Resident Review Statement Resident Statement: examined this patient, discussed with research program internship, agreed with research program internship Other Findings: Mr. Franklin is a 42 YO male with past medical history of Crohn's disease diagnosed at the age of 21 admitted recently with Crohn's Flare In April 2018 treated with IV steroids tapered to p.o. steroids, with plans to follow-up with GI as outpatient comes in back again with chief complaint of lower abdominal pain since 6-7 days prior to admission. Apparently 6-7 days prior to admission he started to have increasing bilateral lower quadrant pain, mostly in the lower abdomen in a bandlike fashion radiating to groin along with decreased appetite, with initial couple of days of constipation followed by loose watery bowel movement with no blood since 2 days prior to today's presentation. He also complains of left suprapubic mass in the midline scrotal perineal junction swelling. Review of systems as mentioned above. Physical exam he was alert oriented 3. HEENT PERRLA. CVS S1-S2 present no murmur. RS air entry bilaterally equal, no adventitious sounds. Per abdomen : Bowel sounds present, lower abdominal tenderness present on deep palpation, no guarding or rigidity., And small bulge noted in the left inguinal fold suprapubic area, which is reducible. Bilateral lower extremity no clubbing cyanosis or edema. Vitals on presentation : temperature of 97.6, pulse of 130, respiration of 18, blood pressure of 126/84, he was saturating 99% on room air. Lab : White count of 18.1, H/H of 11.1/34.4, platelets of 594. Sodium of 139, potassium 4.2, BUN/creatinine 14/0.8, glucose of 121. CRP > 7.3, HsCRP >15, ESR elevated to 58, lipase of 53. UA neg Ct A/P 1. Submucosal edema and wall thickening of the rectum and distal sigmoid colon, can represent proctitis. 2. Submucosal edema and wall thickening of the distal ileum and cecum with adjacent mesenteric stranding can represent changes of Crohn's disease. 3. Hepatomegaly. Assessment. Patient was diagnosed with Crohn's disease in 2010 with evidence of several deep linear ulcers, initially he was started on mercaptopurine, however eventually he was stabilized on Remicade. His last dose of Remicade was in November 2017, and he was off it due to insurance problems. He has had more frequent flares after being off the Remicade. During his previous admission plan was made to follow- up with GI and PCP as outpatient, have quantiferon gold test,test for Ramicade AB's and restart him on Remicade, however the patient didn't follow up perhabs due to insurance issues.He seems to be here with another flare, no evidence of obstruction this time on Ct. With his initial diagnosis at young age, multiple deep ulcers on colonoscopy, previous h/o obstruction, he definitely falls under high risk and therefore will need long term care phlebotomist mx namely remicade resumption to avoid repeated flares and complications Problem List 1. crohns's exacerbation 2. Anxiety/Depression 3.Inguinal Hernia * Continue to monitor intake and output, vitals, keep the patient n.p.o. for now , gentle IV hydration with D5 normal saline, IV Solu Cortef 100 mg p.o. 3 times daily with eventual plan to transition to p.o. prednisone and a long taper for exacerbation. * Symptomatic treatment with Bentyl for abdominal pain. * If has constipation can try magnesium citrate. * We will start him on IV ciprofloxacin and metronidazole. * GI consult in a.m.(patient sees Dr. Maher) * Once abdominal pain is in control, can start with conservative diet and advance as tolerated. * He will eventually need QuantiFERON gold test, Remicade antibody test and eventual restarting of Remicade. * Avoid narcotics as this could worsen the flare. * Continue home medication of Lexapro. Full code. Mild/moderate severe pain pathway. DVT prophylaxis with Lovenox. NPo for now. Keo Gallagher 07/03/189: Core Measures/Misc (07/11) Sepsis (View protocol) If YES complete Sepsis Event Note If YES complete Sepsis Event Note Attending MD Review Statement Attending Statement Attending MD Statement: examined this patient, discuss w/resident/PA/COORDINATOR OF GENETIC SERVICES, agreed w/resident/PA/COORDINATOR OF GENETIC SERVICES Attending Assessment/Plan: Addendum by . Patient was seen and examined at bedside today ( 07/03/18 ) at 8:30 Pm.. Reviewed the history physical done by the resident. Reviewed the past medical family, family, social history. ROS: 10 point system reviewed and negative except as described above. Additional details: Patient is here with diffuse abdominal pain going on for ~3 days. Patient was not able to keep to any any food down as it was causing worsening pain. Patient did not eat or drink much in the last 3 days. Patient had mild liquid diarrhea. No blood, no fever. Patient has some nausea sensation but denies any vomitings. Patient has issues with insurance, he was on Remicade for 7-8 years but did not use it in the last 4 months. Exam: Alert, awake, oriented x3, thin built, not in distress. Abdomen-soft, mild diffuse tenderness, bowel sounds are present, no organomegaly. No guarding, no rigidity. See the full exam per resident note. Labs, CT abdomen pelvis, prior records reviewed. WBC count 18 Assessment and plan: #Crohn's flareup-patient has some mild liquid diarrhea, will get stool studies including C. difficile. Start the patient on hydrocortisone 100 mg 3 times daily for Crohn's flare, start on Cipro twice daily and Flagyl 3 times daily. Patient was not taking his Remicade for the last 4 months, this could be the reason for the flare. Patient now has insurance back, probably needs to be restarted on Remicade. Get GI evaluation in the morning. Keep n.p.o., continue with the IV fluids with dextrose. Continue with his home Escitalopram. Reviewed with the resident. Agree with the rest of the plan as per resident's note. Dr.Ravinder Zackary MD. Hospitalist. Pager: [phone], cell: [phone].
--- NOTE | 2018-07-04 06:32 | PN- Housestaff ---
See Addendum Subjective Follow-up For: Crohns Flare Up Subjective: Pt seen and examined at bedside. Currently on D5NS @100 fluids and wants to advance to clear diets. IV cipro and flagyl with solucortef 100 q8. Denies fevers, chills, nausea, vomiting, diarrhea this morning. Afebrile overnight with leukocytosis and hemoglobin of 8.8. Review of Systems Constitutional: Denies: see HPI. Objective Last 24 Hrs of Vital Signs/I&O Vital Signs Date Time Temp Pulse Resp B/P B/P Pulse O2 O2 Flow FiO2 Mean Ox Delivery Rate 07/04 637 97.4 62 20 117/64 97 07/03 2144 97.4 93 18 123/76 98 Room Air 07/03 195 97.6 94 18 131/86 99 Room Air 07/03 1706 97.3 130 18 126/84 99 Room Air Room Air Intake & Output 07/04 1600 07/04 0800 07/04 0000 Intake Total 1000 Output Total Balance 1000 Intake, IV 1000 Patient 170 lb Weight Weight Bed scale Measurement Method Physical Exam General Appearance: Alert, Oriented X3, Cooperative Skin: No Rashes, No Breakdown Skin Temp/Moisture Exam: Warm/Dry HEENT: Mucous Membr. moist/pink Neck: No JVD Cardiovascular: Normal S1, Normal S2 Lungs: Clear to Auscultation, Normal Air Movement Abdomen: Diffuse abdominal pain to palpation; no rebound or gaurding; soft; no masses appreciated; normal bowel sounds Neurological: Normal Speech Extremities: No Edema Vascular: Normal Pulses Current Medications: Current Medications Sig/Robert Start time Last Medication Dose Route Stop Time Status Admin Acetaminophen 650 MG Q6P PRN 07/03 2100 AC PO Acetaminophen 1,000 MG Q6P PRN 07/03 2100 AC 07/04 IV 910 Ciprofloxacin 400 MG Q12H 07/03 2300 AC 07/04 Dextrose/Water 200 ML IV 102 Dextrose/Sodium 1,000 ML Q10H 07/03 2200 AC 07/04 Chloride IV 07/04 175 102 Dicyclomine HCl 20 MG 4 TIMES/DAY PRN 07/03 2200 AC 07/04 PO 102 Enoxaparin Sodium 40 MG DAILY 07/04 900 AC 07/04 SC 910 Escitalopram Oxalate 10 MG DAILY 07/04 900 AC 07/04 PO 0911 Hydrocortisone 100 MG Q8 07/03 2200 07/04 Sodium Succinate IV 0631 Metronidazole 500 MG Q8H 07/03 2300 07/04 N/A 1 UNIT IV 0631 Morphine Sulfate 2 MG Q4-6 PRN PRN 07/03 2100 AC 07/04 IV 1026 Morphine Sulfate 0 .STK-MED ONE 07/03 1947 DC .ROUTE Morphine Sulfate 8 MG ONCE ONE 07/03 1945 DC 07/03 IV 07/03 1946 1950 Morphine Sulfate 8 MG ONCE ONE 07/03 1815 DC 07/03 IV 07/03 1816 181 Morphine Sulfate 0 .STK-MED ONE 07/03 1815 DC .ROUTE Morphine Sulfate 4 MG ONCE ONE 07/03 1745 DC 07/03 IV 07/03 174 174 Morphine Sulfate 0 .STK-MED ONE 07/03 1744 DC .ROUTE Nicotine 7 MG DAILY 07/04 1039 AC TOP Oxycodone/ 0 .STK-MED ONE 07/04 0021 DC Acetaminophen PO Oxycodone/ 1 TAB ONCE ONE 07/04 0015 DC 07/04 Acetaminophen PO 07/04 0016 0020 Oxycodone/ 2 TAB Q6P PRN 07/03 2100 CAN Acetaminophen PO Patient Medication 1 ED ONE ONE 07/04 1015 DC 07/04 Teaching ED 07/04 1016 1033 Sodium Chloride 1,000 ML Q10H 07/03 2100 DC IV 07/04 1659 Sodium Chloride 1,000 ML BOLUS ONE 07/03 1730 DC 07/03 IV 07/03 1829 1736 Last 24 Hrs of Lab/Mark Results Last 24 Hrs of Labs/Mics: Laboratory Tests 07/04/18 0704: Anion Gap 9, Estimated GFR > 60, BUN/Creatinine Ratio 18.0, CBC w Diff NO MAN DIFF REQ, RBC 3.37 L, MCV 80.9, MCH 26.2 L, MCHC 32.4 L, RDW 15.0 H, MPV 8.0 , Gran % 78.0 H, Lymphocytes % 11.7 L, Monocytes % 8.9, Eosinophils % 1.2, Basophils % 0.2, Absolute Granulocytes 13.4 H, Absolute Lymphocytes 2.0, Absolute Monocytes 1.5 H, Absolute Eosinophils 0.2, Absolute Basophils 0 07/03/181736: Anion Gap 12, Estimated GFR > 60, BUN/Creatinine Ratio 17.5, Glucose 121 H, Calcium 9.7, Total Bilirubin 0.2, AST 37, ALT 58, Alkaline Phosphatase 82, C- Reactive Prot, Quant 7.3 H, C-React Prot High Sens > 15.0 H, Total Protein 7.3 , Albumin 4.3, Globulin 3.0, Albumin/Globulin Ratio 1.4, Lipase 53, CBC w Diff MAN DIFF ORDERED, RBC 4.24 L, MCV 81.2, MCH 26.3 L, MCHC 32.4 L, RDW 15.3 H, MPV 7.9, Gran % 79.1 H, Lymphocytes % 10.8 L, Monocytes % 7.4, Eosinophils % 2.2, Basophils % 0.5, Absolute Granulocytes 14.3 H, Segmented Neutrophils 70, Band Neutrophils 4, Absolute Lymphocytes 2.0, Lymphocytes 16 L, Monocytes 7, Absolute Monocytes 1.3 H, Eosinophils 2, Absolute Eosinophils 0.4, Basophils 1, Absolute Basophils 0.1, Platelet Estimate INCREASED, Polychromasia 1+, Hypochromic-Microcytic 2+, ESR Westergren 58 H, Urinalysis LIGHT H, Urine Color YEL, Urine Clarity CLEAR, Urine pH 6.0, Ur Specific [place] 1.025, Urine Protein TRACE H, Urine Ketones TRACE H, Urine Nitrite NEG, Urine Bilirubin NEG , Urine Urobilinogen 0.2, Ur Leukocyte Esterase NEG, Ur Microscopic SEDIMENT EXAMINED, Urine WBC RARE, Ur Epithelial Cells RARE, Urine Bacteria RARE H, Urine Mucus MANY H, Urine Hemoglobin NEG, Urine Glucose NEG Microbiology 07/03 1953 STOOL: Clostridium difficile Toxin A & B - COLB 07/03 1953 STOOL: Stool Culture - COLB Assessment/Plan Assessment: Patient is a 42 YO male with PMH of Crohns disease diagnosed at 21 (2010) with most recent flare in April 2018 treated with IV steroids tapered to PO steroids with plans to follow with GI came back to ED with cheif complaint of lower abdominal pain for 1 week prior to admission. Increasing bilateral lower quadrant pain in a bandlike fashion radiating to groin with decreased appetite, initially constipation followed by loose watery bowel movement with no blood since 2 days prior to presentation. In addition has a left suprapubic mass in the midline scrotal perineal junction. Crohns history: 2011 diagnosis started on mercaptopurine and stabilized on Remicade. Last remicade in 2018 and off due to insurance problems with more frequent flare ups. NO CT obstruction on this admission. ED: Vital Signs: 97.3, 130, 18, 126/84 LABSL WBC of 18.1 ESR: 58 CRP: 7.3 Lipase: 53, LFTS wnl NS bolus Morphine for pain 8,8,[address] ABDOMEN: 1. Submucosal edema and wall thickening of the rectum and distal sigmoid colon, can represent proctitis. 2. Submucosal edema and wall thickening of the distal ileum and cecum with adjacent mesenteric stranding can represent changes of Crohn's disease. 3. Hepatomegaly. 07/04: Spoke with Dr. Gates on plan of care as patient follows Dr. Maher. Patients insurance recently approved and unsure of his compliance prior to outpatient visit and prednisone taper. Currently clear liquid diet with fluids running. No diarrhea reported with decreasing abdominal pain. PROBLEM LIST: 1. Crohns Exacerbation 2. Anxiety/Depression 3. Inguinal Hernia PLAN: * Patient now on clear liquids for now with gentle IV hydration with D5 NS @ 100ml/hr * Ciprofloxacin + Flagyl * IV hydrocortisone 100mg q8 * GI consultation: Dr. Maher - spoke to Dr. Gates today about plan of care to have patient with proper discharge on prednisone taper and follow up for QuantiFeron test prior to Remicade distrubution now that the patients insurance intact * F/U C. Diff/stool cultures * Pain: Tylenol PO/IV, Morphine 2mg q4-6 * Continue home medication of Lexapro FULL CODE DVT PPx: Lovenox Diet: Clear Liquid Diet Problem List: 1. Crohn's disease Pain Ratin Pain Location: Diffuse abdominaly Pain Goal: Pain 4 or less Pain Plan: as per pain pathway Tomorrow's Labs & Rationales: cbc bep
[2018-07-04 06:37] VITALS: BP 117/64
[2018-07-04 08:24] LABS: ABSOLUTE BASOPHIL COUNT 0 /CUMM (0.0-0.2); ABSOLUTE EOSINOPHIL COUNT 0.2 /CUMM (0.0-0.7); ABSOLUTE GRANULOCYTE CT 13.4 /CUMM (1.4-6.5); ABSOLUTE MONOCYTE COUNT 1.5 /CUMM (0.10-0.60); BASOPHIL % 0.2 % (0.0-2.0); EOSINOPHIL % 1.2 % (0-5); MEAN CORPUSCULAR HGB 26.2 PG (27.0-31.0); MEAN CORPUSCULAR HGB CONC 32.4 G/DL (33.0-37.0); MEAN CORPUSCULAR VOLUME 80.9 FL (80.0-94.0); PLATELET COUNT 441 /CUMM (130-400); RED BLOOD CELL CT 3.37 /CUMM (4.70-6.10); WHITE BLOOD CELL COUNT 17.1 /CUMM (4.8-10.8)
[2018-07-04 08:38] LABS: HEMATOCRIT 27.3 % (42-52)
--- NOTE | 2018-07-04 10:28 | Cons- Gastroenterology ---
General Information and HPI Consulting Request Date of Consult: 07/04/18 Requested By: Van Crawford MD Reason for Consult: 1. Diarrhea 2. Crohn's Disease 3. Abdominal Pain 4. Abnormal CT Scan of the Abdomen and Pelvis Source of Information: patient, Electronic Medical Record Exam Limitations: no limitations History of Present Illness: Patient is a 28 year old male with a H Small Bowel Crohn's Disease followed by Dr. Henok Maher. He had been in clinical remission on Remicade, but had missed his most recent Remicade infusions due to insurance issues. He was seen in the office in January of this year at which time, Dr. Maher had arranged for home infusion of Remicade per Mr. Marvin's insurance company's request. He had also commented in his office note that Mr. Farley had not followed up in the office as directed and further that there were some concerns regarding a functional component to his pain as well as possible drug seeking behavior with repeated requests for "percocet." Mr. Farley was last admitted to [facility] in early April for a flare of Crohn's Disease that was treated with IV steroids. Patient now presents with recurrent abdominal pain and diarrhea. Patient had a CT Scan of the abdomen and pelvis done in the ED on admission. The results are as follows: FINDINGS: LUNG BASES: The visualized lung bases are unremarkable. LIVER, GALLBLADDER, AND BILIARY TREE: The liver is enlarged, measures about 23 cm in maximum CC dimension. The hepatic parenchymal density is within normal limits. No focal hepatic lesion or biliary ductal dilatation is present. The gallbladder is partially distended. There is no evidence of radiopaque gallstones, gallbladder wall thickening, or obvious pericholecystic inflammatory changes. PANCREAS: Unremarkable. SPLEEN: Unremarkable. ADRENAL GLANDS: Unremarkable KIDNEYS AND URETERS: The kidneys are normal in size, shape, and attenuation. No hydronephrosis, hydroureter, or calculi seen. No perinephric stranding. BLADDER: The urinary bladder is empty. GASTROINTESTINAL TRACT: The stomach is unremarkable. The duodenum is decompressed. The small bowel loops are fluid-filled and not dilated. The loops of colon are not dilated. There is mild wall thickening and submucosal edema involving the rectum and distal sigmoid colon. The finding is better seen on coronal image 64, sagittal image 58 and axial image 69. This finding is more prominent than 05/11/2018 exam. There is also submucosal edema and mild thickening of the wall of the cecum, ascending colon as well as the distal ileum. The single layer thickness of the wall of the distal ileum is about 8 mm, better seen on axial image 78 from series 2. This finding is similar to 05/11/2018 exam. There is [id number] mesenteric stranding in the lower abdomen and pelvis as well as the right upper quadrant of the abdomen. There is no free fluid in the abdomen or pelvis. No free intra-abdominal air. ABDOMINAL WALL: No significant hernia is appreciated. LYMPH NODES: No significant adenopathy. Mildly enlarged mesenteric lymph nodes are present. VASCULAR: There are prominent vessels in the right side of the abdomen, the nature of them is not clear. PELVIC VISCERA: The prostate and seminal vesicles are unremarkable. OSSEOUS STRUCTURES: No aggressive bony lesions. The SI joints are unremarkable. IMPRESSION: 1. Submucosal edema and wall thickening of the rectum and distal sigmoid colon, can represent proctitis. 2. Submucosal edema and wall thickening of the distal ileum and cecum with adjacent mesenteric stranding can represent changes of Crohn's disease. 3. Hepatomegaly. Allergies/Medications Allergies: Coded Allergies: No Known Allergies (04/07/18) Home Med List: Escitalopram Oxalate (Lexapro) 10 MG TABLET 10 MG PO DAILY Depression . Current Medications: Current Medications Sig/Robert Start time Last Medication Dose Route Stop Time Status Admin Acetaminophen 650 MG Q6P PRN 07/03 2100 AC PO Acetaminophen 1,000 MG Q6P PRN 07/03 2100 AC 07/04 IV 09 Ciprofloxacin 400 MG Q12H 07/03 Dextrose/Water 200 ML IV 0042 Dextrose/Sodium 1,000 ML Q10H 07/03 Chloride IV 07/04 7019 7482 Dicyclomine HCl 20 MG 4 TIMES/DAY PRN 07/03 2200 AC 07/04 PO 0426 Enoxaparin Sodium 40 MG DAILY 07/04 SC 910 Escitalopram Oxalate 10 MG DAILY 07/04 PO 910 Hydrocortisone 100 MG Q8 07/03 Sodium Succinate IV 06 Metronidazole 500 MG Q8H 07/03 230 AC 07/04 N/A 1 UNIT IV 0631 Morphine Sulfate 2 MG Q4-6 PRN PRN 07/03 IV 0631 Morphine Sulfate 0 .STK-MED ONE 07/03 194 DC .ROUTE Morphine Sulfate 8 MG ONCE ONE 07/03 194 DC 07/03 IV 07/03 1946 1950 Morphine Sulfate 8 MG ONCE ONE 07/03 1815 DC 07/03 IV 07/03 1816 181 Morphine Sulfate 0 .STK-MED ONE 07/03 1815 DC .ROUTE Morphine Sulfate 4 MG ONCE ONE 07/03 1745 DC 07/03 IV 07/03 1746 1743 Morphine Sulfate 0 .STK-MED ONE 07/03 1744 DC .ROUTE Oxycodone/ 0 .STK-MED ONE 07/04 0021 DC Acetaminophen PO Oxycodone/ 1 TAB ONCE ONE 07/04 0015 DC 07/04 Acetaminophen PO 07/04 0016 0020 Oxycodone/ 2 TAB Q6P PRN 07/03 2100 CAN Acetaminophen PO Patient Medication 1 ED ONE ONE 07/04 1015 DC Teaching ED 07/04 1016 Sodium Chloride 1,000 ML Q10H 07/03 2100 DC IV 07/04 1659 Sodium Chloride 1,000 ML BOLUS ONE 07/03 1730 DC 07/03 IV 07/03 1829 1736 Past History Travel History Traveled to [place] past 21 day No Medical History Blood Transfusion Hx: No Neurological: NONE EENT: NONE Cardiovascular: NONE Respiratory: NONE Gastrointestinal: Crohn's disease Hepatic: NONE Renal: NONE Musculoskeletal: NONE Psychiatric: NONE Endocrine: NONE Blood Disorders: NONE Cancer(s): NONE 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 Home Services at Home: None Smoking Status: Current Everyday Smoker ETOH Use: denies use Illicit Drug Use: denies illicit drug use Review of Systems Review of Systems Constitutional: Reports: malaise, weakness. Denies: chills, fever. EENTM: Reports: no symptoms. Cardiovascular: Reports: no symptoms. Respiratory: Reports: no symptoms. GI: Reports: see HPI. Genitourinary: Reports: no symptoms. Musculoskeletal: Reports: no symptoms. Skin: Reports: no symptoms. Neurological/Psychological: Reports: no symptoms. Hematologic/Endocrine: Reports: no symptoms. Exam & Diagnostic Data Vital Signs and I&O Vital Signs Date Time Temp Pulse Resp B/P B/P Pulse O2 O2 Flow FiO2 Mean Ox Delivery Rate 07/04 0637 97.4 62 20 117/64 97 07/03 2144 97.4 93 18 123/76 98 Room Air 07/03 1951 97.6 94 18 131/86 99 Room Air 07/03 1706 97.3 130 18 126/84 99 Room Air Room Air Intake & Output 07/04 0400 07/03 04007/02 040 Intake Total 1000 Output Total Balance 1000 Intake, IV 1000 Patient 170 lb Weight Weight Bed scale Measurement Method Physical Exam General Appearance: alert, awake, mild distress, moderate distress Head: atraumatic, normal appearance Eyes: Bilateral: normal appearance. Ears, Nose, Throat: hearing grossly normal Neck: normal inspection, supple, full range of motion Respiratory: normal breath sounds, lungs clear Cardiovascular: regular rate/rhythm, Normal S1 and S2 without rub, murmur or gallop Gastrointestinal: normal bowel sounds, soft, no organomegaly, tenderness, There is no rebound or guarding Back: normal inspection, normal range of motion Extremities: normal inspection Neurologic/Psych: awake, alert, oriented x 3, normal mood/affect Cranial Nerves: Cranial Nerves II-XII grossly intact Skin: intact, normal color, warm/dry Reproductive: There are 2 pustules on the left testicle Results Pertinent Lab Results: Laboratory Tests 07/04 07/03 0704 1737 Chemistry Sodium (137 - 145 mmol/L) 137 139 Potassium (3.5 - 5.1 mmol/L) 4.4 4.2 Chloride (98 - 107 mmol/L) 102 100 Carbon Dioxide (22 - 30 mmol/L) 26 28 Anion Gap (5 - 16) 9 12 BUN (9 - 20 mg/dL) 9 14 Creatinine (0.7 - 1.2 mg/dL) 0.5 L 0.8 Estimated GFR (>60 ml/min) > 60 > 60 BUN/Creatinine Ratio (7 - 25 %) 18.0 17.5 Glucose (65 - 99 mg/dL) 121 H Calcium (8.4 - 10.2 mg/dL) 9.7 Total Bilirubin (0.2 - 1.3 mg/dL) 0.2 AST (17 - 59 U/L) 37 ALT (21 - 72 U/L) 58 Alkaline Phosphatase (< 127 U/L) 82 C-Reactive Prot, Quant (<1.0 mg/dL) 7.3 H C-React Prot High Sens (1.0 - 3.0 mg/L) > 15.0 H Total Protein (6.3 - 8.2 g/dL) 7.3 Albumin (3.5 - 5.0 g/dL) 4.3 Globulin (1.9 - 4.2 gm/dL) 3.0 Albumin/Globulin Ratio (1.1 - 2.2 %) 1.4 Lipase (23 - 300 U/L) 53 Hematology CBC w Diff NO MAN DIFF REQ MAN DIFF ORDERED WBC (4.8 - 10.8 /CUMM) 17.1 H 18.1 H RBC (4.70 - 6.10 /CUMM) 3.37 L 4.24 L Hgb (14.0 - 18.0 G/DL) 8.8 L 11.1 L Hct (42 - 52 %) 27.3 L 34.4 L MCV (80.0 - 94.0 FL) 80.9 81.2 MCH (27.0 - 31.0 PG) 26.2 L 26.3 L MCHC (33.0 - 37.0 G/DL) 32.4 L 32.4 L RDW (11.5 - 14.5 %) 15.0 H 15.3 H Plt Count (130 - 400 /CUMM) 441 H 594 H MPV (7.4 - 10.4 FL) 8.0 7.9 Gran % (42.2 - 75.2 %) 78.0 H 79.1 H Lymphocytes % (20.5 - 51.1 %) 11.7 L 10.8 L Monocytes % (1.7 - 9.3 %) 8.9 7.4 Eosinophils % (0 - 5 %) 1.2 2.2 Basophils % (0.0 - 2.0 %) 0.2 0.5 Absolute Granulocytes (1.4 - 6.5 /CUMM) 13.4 H 14.3 H Segmented Neutrophils (42.2 - 75.2 %) 70 Band Neutrophils (0.0 - 5.0 %) 4 Absolute Lymphocytes (1.2 - 3.4 /CUMM) 2.0 2.0 Lymphocytes (20.5 - 51.1 %) 16 L Monocytes (1.7 - 9.3 %) 7 Absolute Monocytes (0.10 - 0.60 /CUMM) 1.5 H 1.3 H Eosinophils (0 - 5.0 %) 2 Absolute Eosinophils (0.0 - 0.7 /CUMM) 0.2 0.4 Basophils (0.0 - 2.0 %) 1 Absolute Basophils (0.0 - 0.2 /CUMM) 0 0.1 Platelet Estimate (ADEQUATE) INCREASED Polychromasia 1+ Hypochromic-Microcytic 2+ ESR Westergren (0 - 10 MM) 58 H Urines Urinalysis LIGHT H Urine Color (YEL,AMB,STR) YEL Urine Clarity (CLEAR) CLEAR Urine pH (5.0 - 8.0) 6.0 Ur Specific [place] (1.001 - 1.035) 1.025 Urine Protein (NEG,<30 MG/DL) TRACE H Urine Ketones (NEG) TRACE H Urine Nitrite (NEG) NEG Urine Bilirubin (NEG) NEG Urine Urobilinogen (0.1 - 1.0 EU/dl) 0.2 Ur Leukocyte Esterase (NEG) NEG Ur Microscopic SEDIMENT EXAMINED Urine WBC (0 - 2 /HPF) RARE Ur Epithelial Cells (NONE,FEW) RARE Urine Bacteria (NEG/NONE) RARE H Urine Mucus (FEW,NONE) MANY H Urine Hemoglobin (NEG) NEG Urine Glucose (N MG/DL) NEG Assessment/Plan Assessment/Recommendations: ASSESSMENT: 1. Crohn's Ileitis and Crohn's Colitis by CT Scan 2. Abnormal CT Scan of the Abdomen and Pelvis 3. Leukocytosis 4. Pustules on Left Scrotal Sac ? Fistulous Disease 5. History of Remission with Prior Use of Remicade RECOMMENDATIONS: 1. Check Quantiferron Gold 2. Would check TMPT genetics/activity. Patient will likely restart Remicade and use of of a thiopurine such as 6-MP may helpprevent development of antibodies to the remicade. 3. Continue Cipro 4. Advance Diet 5. Check Stool for C. Diff 6. Dr. Maher will be covering for me on 07/05/2018. Consult Acknowledgment - Thank you for your consult request.
[2018-07-04 14:00] VITALS: BP 119/67
[2018-07-04 21:49] VITALS: BP 124/80
[2018-07-05 06:39] VITALS: BP 140/88
--- NOTE | 2018-07-05 07:13 | PN- Housestaff ---
See Addendum Subjective Follow-up For: Crohns Flare Subjective: Pt seen and examined at bedside. Continues to have a lower abdominal pain that is sharp and groin pain that radiates to the left medial aspect of his thigh. Patient tolerating full liquid diet well and would like to transition to a regular. Denies diarrhea, vomiting, nausea, fevers or chills. Review of Systems Constitutional: Denies: see HPI. Objective Last 24 Hrs of Vital Signs/I&O Vital Signs Date Time Temp Pulse Resp B/P B/P Pulse O2 O2 Flow FiO2 Mean Ox Delivery Rate 07/05 0639 97.7 50 20 140/88 97 Room Air 07/04 2149 97.7 75 22 124/80 100 Room Air 07/04 1400 97.5 58 18 119/67 98 Room Air Intake & Output 07/05 1600 07/05 0800 07/05 0000 Intake Total 350 1840 Output Total Balance 350 1840 Intake, IV 350 500 Intake, Oral 1340 Number 0 Bowel Movements Physical Exam General Appearance: Alert, Oriented X3, Cooperative Skin: No Rashes, No Breakdown HEENT: Mucous Membr. moist/pink Neck: Supple Cardiovascular: Normal S1, Normal S2 Lungs: Clear to Auscultation, Normal Air Movement Abdomen: Normal Bowel Sounds, No Masses, diffuse tenderness in lower abdomen Extremities: No Edema Vascular: Normal Pulses Current Medications: Current Medications Sig/Robert Start time Last Medication Dose Route Stop Time Status Admin Acetaminophen 650 MG Q6P PRN 07/03 2100 AC PO Acetaminophen 1,000 MG Q6P PRN 07/03 2100 AC 07/05 IV 0421 Alprazolam 0.5 MG AT BEDTIME 07/04 2100 AC 07/04 PO 07/11 Ciprofloxacin 400 MG Q12H 07/03 2300 AC 07/05 Dextrose/Water 200 ML IV 1022 Dextrose/Sodium 1,000 ML Q10H 07/03 220 DC 07/04 Chloride IV 07/04 175 102 Dicyclomine HCl 20 MG 4 TIMES/DAY PRN 07/03 2200 AC 07/05 PO 0443 Enoxaparin Sodium 40 MG DAILY 07/04 900 AC 07/05 SC 0837 Escitalopram Oxalate 10 MG DAILY 07/04 900 AC 07/05 PO 0836 Hydrocortisone 100 MG Q8 07/03 2200 AC 07/05 Sodium Succinate IV 0553 Melatonin 5 MG AT BEDTIME 07/04 2100 CAN PO Metronidazole 500 MG Q8H 07/03 2300 AC 07/05 N/A 1 UNIT IV 0600 Morphine Sulfate 2 MG Q4-6 PRN PRN 07/03 2100 AC 07/05 IV 1022 Nicotine 7 MG DAILY 07/04 1039 07/05 TOP 0836 Last 24 Hrs of Lab/Mark Results Last 24 Hrs of Labs/Mics: Laboratory Tests 07/05/18 0725: Anion Gap 10, Estimated GFR > 60, BUN/Creatinine Ratio 12.0, CBC w Diff NO MAN DIFF REQ, RBC 3.13 L, MCV 80.9, MCH 26.2 L, MCHC 32.4 L, RDW 15.1 H, MPV 8.2 , Gran % 81.4 H, Lymphocytes % 11.9 L, Monocytes % 5.8, Eosinophils % 0.6, Basophils % 0.3, Absolute Granulocytes 9.6 H, Absolute Lymphocytes 1.4, Absolute Monocytes 0.7 H, Absolute Eosinophils 0.1, Absolute Basophils 0 Microbiology 07/04 1931 STOOL: Clostridium difficile Toxin A & B - COLB Assessment/Plan Assessment: Patient is a 42 YO male with PMH of Crohns disease diagnosed at 21 (2010) with most recent flare in April 2018 treated with IV steroids tapered to PO steroids with plans to follow with GI came back to ED with cheif complaint of lower abdominal pain for 1 week prior to admission. Increasing bilateral lower quadrant pain in a bandlike fashion radiating to groin with decreased appetite, initially constipation followed by loose watery bowel movement with no blood since 2 days prior to presentation. In addition has a left suprapubic mass in the midline scrotal perineal junction. Crohns history: 2010 diagnosis started on mercaptopurine and stabilized on Remicade. Last remicade in 2018 and off due to insurance problems with more frequent flare ups. NO CT obstruction on this admission. 07/05: Patient seen by Dr. Gates yesterday will be seen by Dr. Maher today. No diarrhea overnight or fevers. Continues to have lower abdominal pain. Low fiber diet started. PROBLEM LIST: 1. Crohns Exacerbation 2. Anxiety/Depression 3. Inguinal Hernia PLAN: * Low fiber diet with gentle IV hydration with D5 NS @ 100ml/hr * Ciprofloxacin + Flagyl continued * IV hydrocortisone 100mg q8 will switch to oral accordingly to GI * GI consultation: Dr. Maher - spoke to Dr. Gates yesterday about plan of care to have patient with proper discharge on prednisone taper and follow up for QuantiFeron test prior to Remicade distrubution now that the patients insurance intact * Pain: Tylenol PO/IV, Morphine 2mg q4-6 * Continue home medication of Lexapro FULL CODE DVT PPx: Lovenox Diet: Clear Liquid Diet Problem List: 1. Crohn's disease Pain Ratin Pain Location: lower abdominal Pain Goal: Pain 4 or less Pain Plan: as per pain pathway Tomorrow's Labs & Rationales: cbc bep
[2018-07-05 08:22] LABS: ABSOLUTE BASOPHIL COUNT 0 /CUMM (0.0-0.2); ABSOLUTE EOSINOPHIL COUNT 0.1 /CUMM (0.0-0.7); ABSOLUTE GRANULOCYTE CT 9.6 /CUMM (1.4-6.5); ABSOLUTE LYMPH COUNT 1.4 /CUMM (1.2-3.4); ABSOLUTE MONOCYTE COUNT 0.7 /CUMM (0.10-0.60); BASOPHIL % 0.3 % (0.0-2.0); EOSINOPHIL % 0.6 % (0-5); GRANULOCYTE % 81.4 % (42.2-75.2); HEMATOCRIT 25.3 % (42-52); MEAN CORPUSCULAR HGB 26.2 PG (27.0-31.0); MEAN CORPUSCULAR HGB CONC 32.4 G/DL (33.0-37.0); MEAN CORPUSCULAR VOLUME 80.9 FL (80.0-94.0); MEAN PLATELET VOLUME 8.2 FL (7.4-10.4); PLATELET COUNT 385 /CUMM (130-400); RBC DISTRIBUTION WIDTH 15.1 % (11.5-14.5); RED BLOOD CELL CT 3.13 /CUMM (4.70-6.10); WHITE BLOOD CELL COUNT 11.8 /CUMM (4.8-10.8)
--- NOTE | 2018-07-05 09:12 | Patient Discharge Instructions ---
Discharge Instructions General Discharge Information You were seen/treated for: Crohns Flare Special Instructions: Please follow up with PCP within 1-2 weeks of discharge. Please follow up with GI Dr. Maher as soon as possible after discharge to be continued on Remicade. Continue prednisone taper 60 mg (3 pills a day) until further notice by Gastroenterology. Return to ED with worsening diarrhea, vomiting, nausea, fevers, chills, abdominal pain. Acute Coronary Syndrome Inclusion Criteria At DC or during hospital stay patient has or had the following: ACS DIAGNOSIS No Discharge Core Measures Meds if any: Prescribed or Continued at Discharge Meds if any: NOT Prescribed or Continued at Discharge Congestive Heart Failure Inclusion Criteria At DC or during hospital stay patient has or had the following: CHF DIAGNOSIS No Discharge Core Measures Meds if any: Prescribed or Continued at Discharge Meds if any: NOT Prescribed or Continued at Discharge Cerebrovascular accident Inclusion Criteria At DC or during hospital stay patient has or had the following: CVA/TIA Diagnosis No Discharge Core Measures Meds if any: Prescribed or Continued at Discharge Meds if any: NOT Prescribed or Continued at Discharge Venous thromboembolism Inclusion Criteria VTE Diagnosis No VTE Type NONE VTE Confirmed by (Test) NONE Discharge Core Measures - Per Current guidelines, there needs to be overlap - treatment for the first 5 days of Warfarin therapy. - If discharged on Warfarin prior to 5 days of - overlap therapy, the patient will need to be - assessed for post discharge needs including - *Post discharge parental anticoagulation - *Warfarin and/or parental anticoagulation education - *Follow up date to check INR post discharge At least 5 days overlap therapy as Inpatient No Meds if any: Prescribed or Continued at Discharge Note: Overlap Therapy is Warfarin and Anticoagulant Meds if any: NOT Prescribed or Continued at Discharge
[2018-07-05 14:40] VITALS: BP 130/74
--- NOTE | 2018-07-05 15:36 | PN- Gastroenterology ---
Assessment/Plan GI Assessment/Recommendations: Assessment: Mr. Farley is a 28 year old male with crohns disase currently admitted with a flare for which he has been started on IV steroids. He is still requiring narcotics for pain, but his GI symptoms overall seem to be improving. I am hopeful that his steroids will be able to be changed to oral steriods in 1- 2 days and he can restart remicade as an outpatient which has previously worked very well for him. Recommendations: 1. Continue IV steroids through today and if he continues to do well would then change to oral prednisone tomorrow 2. Advance to a low residue diet as tolerated 3. Continue analgesia as needed with antispasmodics and narcotics as needed, but efforts should be made to minimize his narcotic use. 4. If he continues to do well consideration be given to discharge the patient home in 1-2 days with a plan to restart him on Remicade as an outpatient as his insurance issues have apparently been resolved. 5. If repeat blood work for TB or antibodies to Remicade are necessary this can be pursued as an outpatient. Dr. Gates will resume his GI care tomorrow. Problem List: 1. Crohn's colitis 2. Crohns disease Subjective Subjective: pt feeling well today. still with some pain for which he is currently on a standing dose of morphine for, but he is still requesting additional narcotics as per nursing. no significant diarrhea or rectal bleeding. Objective Vital Signs and I&Os Vital Signs Date Time Temp Pulse Resp B/P B/P Pulse O2 O2 Flow FiO2 Mean Ox Delivery Rate 07/05 1440 98.1 64 16 130/74 100 Room Air 07/05 0639 97.7 50 20 140/88 97 Room Air 07/04 2149 97.7 75 22 124/80 100 Room Air Intake & Output 07/05 1600 07/05 0400 07/04 1600 07/04 0400 07/03 1600 07/03 0400 Intake Total 1320 1840 2800 Output Total Balance 1320 1840 2800 Intake, IV 344 575 5389 Intake, Oral 620 1340 800 Number 1 0 0 Bowel Movements Patient 170 lb 170 lb Weight Weight Bed scale Measurement Method Physical Exam General Appearance: well developed/nourished, no apparent distress, comfortable Head: atraumatic, normal appearance Neck: normal inspection, supple, full range of motion Respiratory: normal breath sounds, chest non-tender, no respiratory distress Cardiovascular: regular rate/rhythm Abdomen: normal bowel sounds, soft, non-tender Rectal: deferred Back: normal inspection Extremities: normal inspection, no edema Skin: intact, normal color, warm/dry Current Medications: Current Medications Sig/Robert Start time Last Medication Dose Route Stop Time Status Admin Acetaminophen 650 MG Q6P PRN 07/03 2100 AC PO Acetaminophen 1,000 MG Q6P PRN 07/03 2100 AC 07/05 IV 1205 Alprazolam 0.5 MG AT BEDTIME 07/04 2100 AC 07/04 PO 07/11 Ciprofloxacin 400 MG Q12H 07/03 2300 AC 07/05 Dextrose/Water 200 ML IV 1022 Dextrose/Sodium 1,000 ML Q10H 07/03 2200 DC 07/04 Chloride IV 07/04 175 102 Dicyclomine HCl 20 MG 4 TIMES/DAY PRN 07/03 2200 AC 07/05 PO 1205 Enoxaparin Sodium 40 MG DAILY 07/04 900 AC 07/05 SC 0837 Escitalopram Oxalate 10 MG DAILY 07/04 900 AC 07/05 PO 0836 Hydrocortisone 100 MG Q8 07/03 2200 AC 07/05 Sodium Succinate IV 1500 Melatonin 5 MG AT BEDTIME 07/04 2100 CAN PO Metronidazole 500 MG Q8H 07/03 2300 AC 07/05 N/A 1 UNIT IV 1500 Morphine Sulfate 2 MG Q8 07/05 2200 AC IV Morphine Sulfate 2 MG Q4-6 PRN PRN 07/03 2100 DC 07/05 IV 1022 Nicotine 7 MG DAILY 07/04 1039 AC 07/05 TOP 0836 Oxycodone/ 1 TAB ONCE ONE 07/05 1530 UNVr Acetaminophen PO 07/05 1531 Results Pertinent Lab Results: Laboratory Tests 07/05 07/04 0725 0704 Chemistry Sodium (137 - 145 mmol/L) 140 137 Potassium (3.5 - 5.1 mmol/L) 3.9 4.4 Chloride (98 - 107 mmol/L) 105 102 Carbon Dioxide (22 - 30 mmol/L) 25 26 Anion Gap (5 - 16) 10 9 BUN (9 - 20 mg/dL) 6 L 9 Creatinine (0.7 - 1.2 mg/dL) 0.5 L 0.5 L Estimated GFR (>60 ml/min) > 60 > 60 BUN/Creatinine Ratio (7 - 25 %) 12.0 18.0 Hematology CBC w Diff NO MAN DIFF REQ NO MAN DIFF REQ WBC (4.8 - 10.8 /CUMM) 11.8 H 17.1 H RBC (4.70 - 6.10 /CUMM) 3.13 L 3.37 L Hgb (14.0 - 18.0 G/DL) 8.2 L 8.8 L Hct (42 - 52 %) 25.3 L 27.3 L MCV (80.0 - 94.0 FL) 80.9 80.9 MCH (27.0 - 31.0 PG) 26.2 L 26.2 L MCHC (33.0 - 37.0 G/DL) 32.4 L 32.4 L RDW (11.5 - 14.5 %) 15.1 H 15.0 H Plt Count (130 - 400 /CUMM) 385 441 H MPV (7.4 - 10.4 FL) 8.2 8.0 Gran % (42.2 - 75.2 %) 81.4 H 78.0 H Lymphocytes % (20.5 - 51.1 %) 11.9 L 11.7 L Monocytes % (1.7 - 9.3 %) 5.8 8.9 Eosinophils % (0 - 5 %) 0.6 1.2 Basophils % (0.0 - 2.0 %) 0.3 0.2 Absolute Granulocytes (1.4 - 6.5 /CUMM) 9.6 H 13.4 H Absolute Lymphocytes (1.2 - 3.4 /CUMM) 1.4 2.0 Absolute Monocytes (0.10 - 0.60 /CUMM) 0.7 H 1.5 H Absolute Eosinophils (0.0 - 0.7 /CUMM) 0.1 0.2 Absolute Basophils (0.0 - 0.2 /CUMM) 0 0 09/09 1737 Chemistry Sodium (137 - 145 mmol/L) 139 Potassium (3.5 - 5.1 mmol/L) 4.2 Chloride (98 - 107 mmol/L) 100 Carbon Dioxide (22 - 30 mmol/L) 28 Anion Gap (5 - 16) 12 BUN (9 - 20 mg/dL) 14 Creatinine (0.7 - 1.2 mg/dL) 0.8 Estimated GFR (>60 ml/min) > 60 BUN/Creatinine Ratio (7 - 25 %) 17.5 Glucose (65 - 99 mg/dL) 121 H Calcium (8.4 - 10.2 mg/dL) 9.7 Total Bilirubin (0.2 - 1.3 mg/dL) 0.2 AST (17 - 59 U/L) 37 ALT (21 - 72 U/L) 58 Alkaline Phosphatase (< 127 U/L) 82 C-Reactive Prot, Quant (<1.0 mg/dL) 7.3 H C-React Prot High Sens (1.0 - 3.0 mg/L) > 15.0 H Total Protein (6.3 - 8.2 g/dL) 7.3 Albumin (3.5 - 5.0 g/dL) 4.3 Globulin (1.9 - 4.2 gm/dL) 3.0 Albumin/Globulin Ratio (1.1 - 2.2 %) 1.4 Lipase (23 - 300 U/L) 53 Hematology CBC w Diff MAN DIFF ORDERED WBC (4.8 - 10.8 /CUMM) 18.1 H RBC (4.70 - 6.10 /CUMM) 4.24 L Hgb (14.0 - 18.0 G/DL) 11.1 L Hct (42 - 52 %) 34.4 L MCV (80.0 - 94.0 FL) 81.2 MCH (27.0 - 31.0 PG) 26.3 L MCHC (33.0 - 37.0 G/DL) 32.4 L RDW (11.5 - 14.5 %) 15.3 H Plt Count (130 - 400 /CUMM) 594 H MPV (7.4 - 10.4 FL) 7.9 Gran % (42.2 - 75.2 %) 79.1 H Lymphocytes % (20.5 - 51.1 %) 10.8 L Monocytes % (1.7 - 9.3 %) 7.4 Eosinophils % (0 - 5 %) 2.2 Basophils % (0.0 - 2.0 %) 0.5 Absolute Granulocytes (1.4 - 6.5 /CUMM) 14.3 H Segmented Neutrophils (42.2 - 75.2 %) 70 Band Neutrophils (0.0 - 5.0 %) 4 Absolute Lymphocytes (1.2 - 3.4 /CUMM) 2.0 Lymphocytes (20.5 - 51.1 %) 16 L Monocytes (1.7 - 9.3 %) 7 Absolute Monocytes (0.10 - 0.60 /CUMM) 1.3 H Eosinophils (0 - 5.0 %) 2 Absolute Eosinophils (0.0 - 0.7 /CUMM) 0.4 Basophils (0.0 - 2.0 %) 1 Absolute Basophils (0.0 - 0.2 /CUMM) 0.1 Platelet Estimate (ADEQUATE) INCREASED Polychromasia 1+ Hypochromic-Microcytic 2+ ESR Westergren (0 - 10 MM) 58 H Urines Urinalysis LIGHT H Urine Color (YEL,AMB,STR) YEL Urine Clarity (CLEAR) CLEAR Urine pH (5.0 - 8.0) 6.0 Ur Specific [place] (1.001 - 1.035) 1.025 Urine Protein (NEG,<30 MG/DL) TRACE H Urine Ketones (NEG) TRACE H Urine Nitrite (NEG) NEG Urine Bilirubin (NEG) NEG Urine Urobilinogen (0.1 - 1.0 EU/dl) 0.2 Ur Leukocyte Esterase (NEG) NEG Ur Microscopic SEDIMENT EXAMINED Urine WBC (0 - 2 /HPF) RARE Ur Epithelial Cells (NONE,FEW) RARE Urine Bacteria (NEG/NONE) RARE H Urine Mucus (FEW,NONE) MANY H Urine Hemoglobin (NEG) NEG Urine Glucose (N MG/DL) NEG
--- NOTE | 2018-07-05 15:58 | Discharge Summary ---
Visit Information Visit Dates Admission Date: 07/03/18 Discharge Date: 07/06/18 Hospital Course Course Attending Physician: Van Crawford MD Primary Care Physician: Unknown Hospital Course: HOSPITAL COURSE: Mr. Farley is a 42 YO male with past medical history of Crohn's disease diagnosed at the age of 21 admitted recently with Crohn's Flare In April 2018 treated with IV steroids tapered to p.o. steroids, with plans to follow-up with GI as outpatient comes in back again with chief complaint of lower abdominal pain since 6-7 days prior to admission. 6-7 days prior to admission he started to have increasing bilateral lower quadrant pain, mostly in the lower abdomen in a bandlike fashion radiating to groin along with decreased appetite, with initial couple of days of constipation followed by loose watery bowel movement with no blood since 2 days prior to today's presentation. He also complained of left suprapubic mass in the midline scrotal perineal junction swelling. Crohns history: 2011 diagnosis started on mercaptopurine and stabilized on Remicade. Last remicade in 2017 and off due to insurance problems with more frequent flare ups. NO CT obstruction on this admission. IMAGING: CT ABD & PELVIS W IV CONTRAST 1. Submucosal edema and wall thickening of the rectum and distal sigmoid colon, can represent proctitis. 2. Submucosal edema and wall thickening of the distal ileum and cecum with adjacent mesenteric stranding can represent changes of Crohn's disease. 3. Hepatomegaly. GENERAL MEDICINE: 1. Crohns Disease 2. Anxiety/Depression COURSE: Patient started on clear liquids for now with gentle IV hydration with D5 NS @ 100ml/hr. Ciprofloxacin + Flagyl was begun. IV hydrocortisone 100mg q8. GI consultation. Seen by Dr. Gates and Dr. Maher. Plan of care as per GI was to have patient with proper discharge on prednisone taper and follow up for QuantiFeron test prior to Remicade distrubution now that the patients insurance intact. Pain was controlled on IV tylenol, morphine and percocet. Diet was advanced to low fiber diet. Patient had continued lower abdominal pain but with no bloody diarrhea, nausea or vomiting during stay. Appointment was made with Dr. Maher prior to discharge on 07/11/18 at 845AM for close follow up. Discharged prednisone 60mg daily and close GI follow up for further adjustment of medications. Continued on home medications. Code Status: Full Code DVT PPx: Lovenox Diet: Low Fiber Diet Allergies: Coded Allergies: No Known Allergies (04/07/18) Disposition Summary Disposition Principal Diagnosis: Crohns Flare Additional Diagnosis: Crohns Diseae Discharge Disposition: home or self care Discharge Instructions General Discharge Information Code Status: Full Code Patient's Diet: Low Fiber Diet Patient's Activity: As tolerated Follow-Up Instructions/Appts: Please follow up with PCP within 1-2 weeks of discharge. Please follow up with GI Dr. Maher as soon as possible after discharge to be continued on Remicade. Appointment made for Wednesday07/11/18 at 8:45AM. Continue prednisone taper 60 mg (3 pills a day) until further notice by Gastroenterology. Return to ED with worsening diarrhea, vomiting, nausea, fevers, chills, abdominal pain. Medications at Discharge Discharge Medications: Continue taking these medications: Escitalopram Oxalate (Lexapro) 10 MG TABLET 10 Milligram ORAL DAILY Qty = 30 Instructions: . Comments: Last Taken: 07/06/18 Time: 7:58 AM Start taking the following new medications: Prednisone (Prednisone) 20 MG TABLET 1 Tablet ORAL DAILY Qty = 90 No Refills Instructions: 3 pills a day (60mg) until further notice by GI. Copies To: Mary HEMPHILL,Tristan Buitrago MD Attending MD Review Statement Documenting Attending: Van Crawford MD Other Findings: Agree with the above summary of care and plan of care upon discharge. Will see Dr. Maher next week who will begin preparation to restart his Remicade therapy.
[2018-07-05 21:26] VITALS: BP 104/57
[2018-07-06 06:39] VITALS: BP 130/80
--- NOTE | 2018-07-06 07:03 | PN- Housestaff ---
See Addendum Subjective Follow-up For: Crohns Flare Subjective: Pt seen and examined at bedside. Continues to have sharp lower abdominal pain especially after transitioning to low fiber diet. He has had fatty stools with no blood appreciated. Afebrile overnight, denies nausea, vomiting. Review of Systems Constitutional: Denies: see HPI. Objective Last 24 Hrs of Vital Signs/I&O Vital Signs Date Time Temp Pulse Resp B/P B/P Pulse O2 O2 Flow FiO2 Mean Ox Delivery Rate 07/06 0639 98.1 64 20 130/80 97 Room Air 07/05 2126 98.0 66 20 104/57 98 Room Air 07/05 1440 98.1 64 16 130/74 100 Room Air Intake & Output 07/06 1600 07/06 0807/06 0000 Intake Total 650 650 Output Total Balance 650 650 Intake, IV 150 350 Intake, Oral 500 300 Physical Exam General Appearance: Alert, Oriented X3, Cooperative, Mild Distress Skin: No Rashes HEENT: Mucous Membr. moist/pink Cardiovascular: Normal S1, Normal S2 Lungs: Clear to Auscultation, Normal Air Movement Abdomen: Soft, Mild tenderness to palpation in lower abdomen Extremities: No Edema Vascular: Normal Pulses Current Medications: Current Medications Sig/Robert Start time Last Medication Dose Route Stop Time Status Admin Acetaminophen 650 MG Q6P PRN 07/03 2100 AC PO Acetaminophen 1,000 MG Q6P PRN 07/03 2100 AC 07/06 IV 0754 Alprazolam 0.5 MG AT BEDTIME 07/04 PO 07/11 Ciprofloxacin 400 MG Q12H 07/03 2300 AC 07/05 Dextrose/Water 200 ML IV 2199 Dicyclomine HCl 20 MG 4 TIMES/DAY PRN 07/03 2200 AC 07/06 PO 0206 Diphenhydramine HCl 1 FER Q6P PRN 07/05 2300 AC 07/06 TOP 0529 Diphenhydramine HCl 1 FER ONCE ONE 07/05 2215 CAN TOP 07/05 2216 Enoxaparin Sodium 40 MG DAILY 07/04 900 AC 07/06 SC 0758 Escitalopram Oxalate 10 MG DAILY 07/04 900 AC 07/06 PO 0758 Hydrocortisone 100 MG Q8 07/03 2200 AC 07/06 Sodium Succinate IV 0520 Metronidazole 500 MG Q8H 07/03 2300 07/06 N/A 1 UNIT IV 0600 Morphine Sulfate 2 MG Q8 07/05 2200 07/06 IV 0520 Morphine Sulfate 2 MG Q4-6 PRN PRN 07/03 2100 WI 07/05 IV 1022 Nicotine 7 MG DAILY 07/04 1039 07/06 TOP 0758 Oxycodone/ 1 TAB ONCE ONE 07/05 1530 WI 07/05 Acetaminophen PO 07/05 1531 1609 Patient Medication 1 ED ONE ONE 07/05 1945 WI 07/05 Teaching ED 07/05 Last 24 Hrs of Lab/Mark Results Last 24 Hrs of Labs/Mics: Laboratory Tests 07/06/18 0635: Sodium Pending, Potassium Pending, Chloride Pending, Carbon Dioxide Pending, Anion Gap Pending, BUN Pending, Creatinine Pending, BUN/Creatinine Ratio Pending , CBC w Diff NO MAN DIFF REQ, RBC 3.25 L, MCV 81.4, MCH 26.0 L, MCHC 31.9 L, RDW 15.0 H, MPV 8.5, Gran % 79.6 H, Lymphocytes % 12.0 L, Monocytes % 7.8, Eosinophils % 0.3, Basophils % 0.3, Absolute Granulocytes 9.4 H, Absolute Lymphocytes 1.4, Absolute Monocytes 0.9 H, Absolute Eosinophils 0, Absolute Basophils 0 Assessment/Plan Assessment: Patient is a 42 YO male with PMH of Crohns disease diagnosed at 21 (2010) with most recent flare in April 2018 treated with IV steroids tapered to PO steroids with plans to follow with GI came back to ED with cheif complaint of lower abdominal pain for 1 week prior to admission. Increasing bilateral lower quadrant pain in a bandlike fashion radiating to groin with decreased appetite, initially constipation followed by loose watery bowel movement with no blood since 2 days prior to presentation. In addition has a left suprapubic mass in the midline scrotal perineal junction. Crohns history: 2010 diagnosis started on mercaptopurine and stabilized on Remicade. Last remicade in 2018 and off due to insurance problems with more frequent flare ups. NO CT obstruction on this admission. 07/06: Low fiber diet tolerated. Seen by Dr. Maher. Will discharge accordingly on PO Steroids with close follow up outpatient. Patient scheduled for appointment Wednesday07/11/[address] Maher. PROBLEM LIST: 1. Crohns Exacerbation 2. Anxiety/Depression 3. Inguinal Hernia PLAN: * Discharge today on prednisone taper and close follow up with Dr. Maher appointment Wednesday07/11/18 at 845AM. * Low fiber diet continued * Ciprofloxacin + Flagyl stopped today * IV hydrocortisone 100mg q8 will switch to oral for discharge * GI consultation: Dr. Maher - spoke to Dr. Gates yesterday about plan of care to have patient with proper discharge on prednisone taper and follow up for QuantiFeron test prior to Remicade distrubution now that the patients insurance intact * Continue home medication of Lexapro FULL CODE DVT PPx: Lovenox Diet: Low Fiber Diet Problem List: 1. Crohn's disease Pain Ratin Pain Location: lower abdomen Pain Goal: Remain pain free Pain Plan: as per pain pathway Tomorrow's Labs & Rationales: pending discharge
[2018-07-06 07:50] LABS: ABSOLUTE BASOPHIL COUNT 0 /CUMM (0.0-0.2); ABSOLUTE EOSINOPHIL COUNT 0 /CUMM (0.0-0.7); ABSOLUTE GRANULOCYTE CT 9.4 /CUMM (1.4-6.5); ABSOLUTE LYMPH COUNT 1.4 /CUMM (1.2-3.4); ABSOLUTE MONOCYTE COUNT 0.9 /CUMM (0.10-0.60); BASOPHIL % 0.3 % (0.0-2.0); EOSINOPHIL % 0.3 % (0-5); GRANULOCYTE % 79.6 % (42.2-75.2); HEMATOCRIT 26.4 % (42-52); MEAN CORPUSCULAR HGB CONC 31.9 G/DL (33.0-37.0); MEAN CORPUSCULAR VOLUME 81.4 FL (80.0-94.0); MEAN PLATELET VOLUME 8.5 FL (7.4-10.4); PLATELET COUNT 384 /CUMM (130-400); RED BLOOD CELL CT 3.25 /CUMM (4.70-6.10); WHITE BLOOD CELL COUNT 11.8 /CUMM (4.8-10.8)
[2018-07-06] MEDS ORDERED: PREDNISONE20 M1 PO ×2 (11:06→11:48)
[2018-07-06] MEDS ORDERED: SPACE CHAMBER1 EACH INH/SOL (11:24)
[2018-07-06] MEDS ORDERED: PROAIR HFA8.5 GM INH (11:24)
[2018-07-06 14:07] VITALS: BP 120/84
== END 2018-07-06 15:40 | DRG 245 ==
LOC: ERH 17:02 → ERHI 20:22 → 2NB 20:22 → ENRESERV 21:08 → ENTRNSPT 22:17 → 2NB 22:23 → EDTRNSPTSTS 22:24 → 2NB 22:24 → CMPTRNSPT 22:41 → 2NB 07-04 08:59 → ENPENDDIS 07-06 11:59 → 2NB 07-06 15:40
PROVIDERS: Emergency Medicine; Internal Medicine; Physical Medicine & Rehabilitation Pain Medicine
DX: K50.90 Crohn's disease, unspecified, without complications (principal); F32.9 Major depressive disorder, single episode, unspecified; F41.9 Anxiety disorder, unspecified; N50.89 Other specified disorders of the male genital organs; Z79.899 Other long term (current) drug therapy; K40.90 Unilateral inguinal hernia, without obstruction or gangrene, not specified as recurrent; F17.210 Nicotine dependence, cigarettes, uncomplicated; R16.0 Hepatomegaly, not elsewhere classified
CPT/HCPCS: 2NBSP; 36415; 36592; 74177; 81001; 82436; 87015; 87045; 87899; 87899-59; 96374; 96376; J0131; J0744; J1650; J1720; J7042; J7060

== ENCOUNTER 2018-07-18 13:18 | Emergency (ER) | payer OTHER ==
[~2018-07-18] VITALS: Ht 188 cm; Wt 77.1 kg
[~2018-07-18 13:18] MED LIST changes: +PROAIR HFA8.5 GM INH; +SPACE CHAMBER1 EACH INH/SOL
[2018-07-18 13:55] LABS: ABSOLUTE BASOPHIL COUNT 0 /CUMM (0.0-0.2); ABSOLUTE EOSINOPHIL COUNT 0.2 /CUMM (0.0-0.7); ABSOLUTE GRANULOCYTE CT 12.4 /CUMM (1.4-6.5); ABSOLUTE LYMPH COUNT 1.2 /CUMM (1.2-3.4); ABSOLUTE MONOCYTE COUNT 0.3 /CUMM (0.10-0.60); BASOPHIL % 0.2 % (0.0-2.0); EOSINOPHIL % 1.3 % (0-5); HEMATOCRIT 34.7 % (42-52); MEAN CORPUSCULAR HGB 25.9 PG (27.0-31.0); MEAN CORPUSCULAR HGB CONC 32.4 G/DL (33.0-37.0); MEAN CORPUSCULAR VOLUME 79.9 FL (80.0-94.0); PLATELET COUNT 578 /CUMM (130-400); RBC DISTRIBUTION WIDTH 16.1 % (11.5-14.5); RED BLOOD CELL CT 4.34 /CUMM (4.70-6.10); WHITE BLOOD CELL COUNT 14.1 /CUMM (4.8-10.8)
[2018-07-18 14:17] LABS: GRANULOCYTE % 87.8 % (42.2-75.2)
--- NOTE | 2018-07-18 15:43 | RADIOLOGY REPORT ---
EXAMINATION: XR CHEST CLINICAL INFORMATION: Cough and shortness of breath. Presumptive diagnosis of pneumonia, CHF. COMPARISON: None TECHNIQUE: 2 views of the chest were obtained on 3 images. FINDINGS: The cardiomediastinal silhouette is within normal limits in size. Lungs bilaterally are symmetrically expanded and clear. No focal consolidation, effusion or pneumothorax is seen. There is a mild convex right thoracolumbar scoliosis. IMPRESSION: No acute cardiopulmonary process seen. Specifically, no evidence of pneumonia or CHF.
--- NOTE | 2018-07-18 16:42 | CT SCAN REPORT ---
EXAMINATION: CT ABDOMEN AND PELVIS WITH CONTRAST CLINICAL INFORMATION: IBD. Colitis. Severe abdominal pain. Diarrhea. COMPARISON: CT abdomen pelvis 07/03/2018. TECHNIQUE: Multidetector volumetric imaging was performed of the abdomen and pelvis following IV administration of 95 mL of Optiray 320 intravenous contrast. Sagittal and coronal reformatted images were obtained on the technologist's workstation. DLP: 302 mGy-cm FINDINGS: LUNG BASES: The visualized lung bases are unremarkable. LIVER, GALLBLADDER, AND BILIARY TREE: The liver is normal in size, shape, and attenuation. No focal hepatic lesion or biliary ductal dilatation is present. The gallbladder is unremarkable with no evidence of radiopaque gallstones, gallbladder wall thickening, or obvious pericholecystic inflammatory changes. PANCREAS: Unremarkable. SPLEEN: Unremarkable. ADRENAL GLANDS: Unremarkable. KIDNEYS AND URETERS: The kidneys are normal in size, shape, and attenuation. No hydronephrosis, hydroureter, or calculi seen. No perinephric stranding. BLADDER: Unremarkable. GASTROINTESTINAL TRACT: Bowel gas pattern is nonobstructive. There is equivocal mural thickening of the ascending colon. Equivocal mural thickening involving portions of the descending colon, sigmoid colon, and rectum. Mild mural thickening of small bowel in the pelvis on axial image 76/99 corresponding to the area of previous enteritis demonstrated 07/03/2018, slightly improved from prior exam. No fluid collection adjacent to smaller large bowel. There is mild fat stranding in the right paracolic gutter region which has not significantly changed. The appendix is unremarkable. Trace mesenteric fluid. ABDOMINAL WALL: No significant hernia is appreciated. LYMPH NODES: No new bulky adenopathy. Subcentimeter abdominal and pelvic lymph nodes are demonstrated. VASCULAR: Prominent number of mesenteric vessels is redemonstrated, likely chronic and of unclear clinical significance. PELVIC VISCERA: Trace free pelvic fluid. The prostate gland and seminal vesicles are unremarkable. OSSEOUS STRUCTURES: No acute osseous abnormalities. IMPRESSION: 1. Nonobstructive bowel gas pattern. Minimal interval improvement in mural thickening of a small bowel loop in the pelvis, suggesting a degree of ileal enteritis. 2. Question of mild multifocal mural thickening involving the ascending colon, portions of the descending colon, and portions of the sigmoid/rectum. 3. Trace mesenteric mesenteric and pelvic fluid without a discrete fluid collection. No pneumoperitoneum.
--- NOTE | 2018-07-18 17:57 | ED GENERAL ADULT ---
History of Present Illness General Chief Complaint: Abdominal Pain/Flank Pain Stated Complaint: PER PT CHRONS DISEASE, SEVERE ABD PAIN, SIB GFP Source: patient Exam Limitations: no limitations Vital Signs & Intake/Output Vital Signs & Intake/Output Vital Signs Date Time Temp Pulse Resp B/P B/P Pulse O2 O2 Flow FiO2 Mean Ox Delivery Rate 07/18 2011 98.2 68 18 131/84 100 Room Air 07/18 1928 132/70 07/18 1851 98.2 88 18 132/64 99 07/18 1814 76 18 130/80 98 07/18 1632 98.0 56 18 133/89 100 Room Air Room Air 07/18 1337 97.9 118 20 153/90 100 Room Air Allergies Coded Allergies: No Known Allergies (04/07/18) Reconcile Medications Escitalopram Oxalate (Lexapro) 10 MG TABLET 10 MG PO DAILY Depression . Prednisone 20 MG TABLET 1 TAB PO DAILY Crohns Disease 3 pills a day (60mg) until further notice by GI. Triage Note: C/O ABDOMINAL PAIN X 3 MONTHS, (INTERMITTANT). STATES HE HAS CROHN'S DISEASE, PAIN WORSE AFTER A SEES DR. MAHER (MILITARY TECHNOLOGY SPECIALIST), PAIN UNRELIVED WITH MEDS. UNABLE TO KEEP FLUIDS DONE. Triage Nurses Notes Reviewed? yes HPI: 28-year-old white male with history of long-standing Crohn's disease with chronic abdominal pain who now presents with persistent pain that has been unresolved after Percocet. Patient had been on dicyclomine with some improvement but ran out of it. He was successfully treated with Remicade but that also was discontinued due to the lack of insurance. Patient has been under the care of Dr. Maher and is awaiting the results of Remicade antibody testing prior to restarting the Remicade. The patient is also concerned that his TB test came back inconclusive and was awaiting a chest x-ray today. Patient denies any nausea vomiting or bright red blood per rectum. He has been taking prednisone 60 mg daily as prescribed by Dr. Maher Past History Travel History Traveled to [place] past 21 day No Medical History Any Pertinent Medical History? 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 His father suffers from gastric ulcers and one of his 5 brothers has GI issues, but has not been diagnosed with anything.). Relation not specified for: *No pertinent family history Hx Contributory? No Review of Systems Review of Systems Constitutional: Reports: see HPI. Denies: no symptoms, chills, diaphoresis, fever, malaise, weakness, unexplained weight loss. Physical Exam Physical Exam General Appearance: well developed/nourished, moderate distress Head: atraumatic, normal appearance Eyes: Bilateral: normal appearance, PERRL, EOMI. Ears, Nose, Throat: normal pharynx Neck: normal inspection, supple Respiratory: normal breath sounds, chest non-tender, no respiratory distress, quiet respiration, lungs clear Cardiovascular: regular rate/rhythm Gastrointestinal: tenderness (diffuse w/o rebound/guardingd) Extremities: normal inspection Skin: intact, normal color, warm/dry Core Measures ACS in differential dx? No CVA/TIA Diagnosis: No Sepsis Present: No Sepsis Focused Exam Completed? No Progress Differential Diagnoses I considered the following diagnoses in my evaluation of the patient: [Acute colitis, ruptured viscus, Crohn's exacerbation, dehydration] Plan of Care: Orders Procedure Date/time Status URINALYSIS 07/18 1330 Complete LIPASE 07/18 1330 Complete C-REACTIVE PROTEIN 07/18 1330 Complete COMPREHENSIVE METABOLIC PANEL 07/18 1330 Complete CBC WITHOUT DIFFERENTIAL 07/18 1330 Complete Current Medications Sig/Robert Start time Last Medication Dose Stop Time Status Admin Sodium Chloride 1,000 ML WIDE OPEN 07/18 1800 AC 07/18 (Normal Saline 0.9%) 1808 Laboratory Tests 07/18/18 1405: Urinalysis MANY H, Urine Color YEL, Urine Clarity CLDY H, Urine pH 7.5, Ur Specific Douglass 1.015, Urine Protein NEG, Urine Ketones NEG, Urine Nitrite NEG, Urine Bilirubin NEG, Urine Urobilinogen 0.2, Ur Leukocyte Esterase NEG, Ur Microscopic SEDIMENT EXAMINED, Urine RBC RARE, Urine Crystals RARE CA OX, Urine Hemoglobin NEG, Urine Glucose NEG 07/18/18 1340: Anion Gap 15, Estimated GFR > 60, BUN/Creatinine Ratio 18.3, Glucose 164 H, Calcium 10.1, Total Bilirubin 0.2, AST 25, ALT 52, Alkaline Phosphatase 56, C- Reactive Prot, Quant 1.6 H, Total Protein 7.6, Albumin 4.6, Globulin 3.0, Albumin/Globulin Ratio 1.5, Lipase 46, CBC w Diff NO MAN DIFF REQ, RBC 4.34 L, MCV 79.9 L, MCH 25.9 L, MCHC 32.4 L, RDW 16.1 H, MPV 8.0, Gran % 87.8 H, Lymphocytes % 8.3 L, Monocytes % 2.4, Eosinophils % 1.3, Basophils % 0.2, Absolute Granulocytes 12.4 H, Absolute Lymphocytes 1.2, Absolute Monocytes 0.3, Absolute Eosinophils 0.2, Absolute Basophils 0 Initial ED EKG: none Comments: The case was discussed with Dr. Hopoer who reviewed the patient's medical record and recommended that we treat the patient with narcotics at this time. He recommends the patient be discharged with a follow-up to Dr. Maher tomorrow to review the results of the Remicade antibody testing. Patient continued to have discomfort after being given Dilaudid and therefore was given a GI cocktail with only minimal relief. He then requests a prescription for Xanax to help with his anxiety and muscle spasms. Patient will be given a short course of Xanax 0.5 3 times daily as needed #12 and he will follow-up with Dr. Maher in the morning Departure Departure Disposition: HOME OR SELF CARE Condition: Stable Clinical Impression Primary Impression: Exacerbation of Crohn's disease Referrals: Lonnie HEMPHILL,Franky Leblanc (PCP/Family) Additional Instructions: Please follow-up with Dr. Maher in the morning Departure Forms: Customer Survey General Discharge Information Critical Care Note Critical Care Note Critical Care Time: non-applicable
[2018-07-18 20:11] VITALS: BP 131/84
[2018-07-18] MEDS ORDERED: XANAX0.5 M1 PO (20:20)
[2018-07-18] MEDS ORDERED: DICYCLOMINE HCL20 M1 PO (20:33)
== END 2018-07-18 20:32 ==
LOC: ERH 13:18
PROVIDERS: Physician Assistant Medical
DX: K50.90 Crohn's disease, unspecified, without complications (principal); R10.9 Unspecified abdominal pain; F17.210 Nicotine dependence, cigarettes, uncomplicated
CPT/HCPCS: 71046; 74177; 81001; 96361; 96374; 96375; J2405